=== PATIENT | female | born 1990 | race Hispanic/Latino ===

== ENCOUNTER 2019-07-17 19:27 | Emergency (ER) | payer SELFPAY ==
--- OUTSIDE RECORDS SUMMARY | 2019-07-17 19:30 | XMS REPORT ---
:1990 Author Organization [facility] t Address [address] Alvarez [address] [place] [id number] Care Team Providers Name Role Phone Unavailable Unavailable Unavailable Problems This patient has no known problems. Allergies, Adverse Reactions, Alerts This patient has no known allergies or adverse reactions. Medications This patient has no known medications. Procedures This patient has no known procedures. Results This patient has no known results.
[2019-07-17] MEDS ORDERED: dexAMETHasone 10 MG/ML VIAL ONE (21:14)
[2019-07-17] MEDS ORDERED: CLINDAMYCIN 900MG/D5W 900 MG/50 ML IVPB IV ONE (21:14)
[2019-07-17] MEDS ORDERED: ACETAMINOPHEN 325 MG TABLET ONE (21:14)
[2019-07-17] MEDS ORDERED: KETOROLAC 30 MG/ML INJ ONE (21:19)
[2019-07-17 21:41] LABS: Urine Blood NEGATIVE (NEG); Urine Glucose NEGATIVE (NEG); Urine Protein NEGATIVE (NEG); Urine Specific Gravity >1.030 (1.005-1.030); Urine pH 6.5 (5.0-7.0)
[2019-07-17 21:44] LABS: Absolute Lymphocytes (CBC) 2.3 K/uL (0.7-4.9); Basophils % 0.7 % (0-1.3); Hematocrit 44.8 % (36.0-45.0); Lymphocytes % 17.8 % (15.3-44.8); MPV 8.1 fL (7.6-11.3); RBC Red Blood Cell Count 4.96 M/uL (3.86-4.86)
[2019-07-17 21:48] LABS: Potassium 3.8 mmol/L (3.5-5.1)
--- NOTE | 2019-07-17 22:00 | RAD REPORT ---
EXAM DESCRIPTION: CT - Soft Tissue Neck W/Contr - 07/17/2019 9:30 pm CLINICAL HISTORY: peritonsillar abscess COMPARISON: No comparisons TECHNIQUE: During dynamic enhancement using 100 milliliters nonionic IV contrast, axial 5 millimeter thick images of the neck were obtained. All CT scans are performed using dose optimization technique as appropriate and may include automated exposure control or mA/KV adjustment according to patient size. FINDINGS: Intracranial portion the examination is unremarkable. No globe or orbital content. Mastoid air cells and paranasal sinuses are clear. No oropharyngeal abnormality seen. Left tonsil is enlarged extending to the midline. There is a central 2.0 x 1.5 x 1.5 centimeter hypod ense focus. Right tonsil is prominent but shows no focal hypodensity. Adenoid tissue within normal li mits. Left-sided soft palate is enlarged and edematous. Epiglottis is normal. No focal cord abnormality. Thyroid gland, submandibular gland and parotid gland tissues are unremarkable. A few small nonspecific bilateral cervical lymph nodes are present. No suspicious lymphadenopathy. IMPRESSION: A 2.0 centimeter left peritonsillar abscess is present. No suspicious cervical lymphadenopathy. Small reactive lymph nodes are present more pronounced on the left.
[2019-07-17] MEDS ORDERED: LIDOCAINE 1% MPF 5 ML VIAL ONE (22:33)
--- NOTE | 2019-07-17 23:21 | ER ---
Nurse's Notes [facility] Name: Stella Kapadia Age: 28 yrs Sex: Female : 1990 Arrival Date: 07/17/2019 Time: 19:29 Bed 18 Private MD: Diagnosis: Peritonsillar abscess Presentation: 07/16 19:35 Chief complaint: Patient states: Sore throat since last night. Coronavirus screen: ca1 Proceed with normal triage. Patient denies a cough. Patient denies shortness of breath or difficulty breathing. Patient denies measured and/or subjective temperature greater than 100.4F prior to today's visit. Patient denies travel on a cruise ship or to a country the [facility] currently lists as an affected area. Patient denies contact with known and/or suspected case of COVID-19. Ebola Screen: Patient negative for fever greater than or equal to 101.5 degrees Fahrenheit, and additional compatible Ebola Virus Disease symptoms Patient denies exposure to infectious person. Patient denies travel to an Ebola-affected area in the 21 days before illness onset. No symptoms or risks identified at this time. Initial Sepsis Screen: Does the patient meet any 2 criteria? No. Patient's initial sepsis screen is negative. Does the patient have a suspected source of infection? Yes:. Risk Assessment: Do you want to hurt yourself or someone else? Patient reports no desire to harm self or others. Onset of symptoms was July 17, 2019. 19:35 Method Of Arrival: Ambulatory ca1 19:35 Acuity: LUCIAN 4 ca1 Triage Assessment: 20:30 General: Appears in no apparent distress. uncomfortable, ill, Behavior is calm, vc cooperative, appropriate for age. 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 - Social history:: Smoking status: Patient denies any tobacco usage or history of. Screenin:30 Abuse screen: Denies threats or abuse. Nutritional screening: No deficits noted. vc Nutritional screening: Difficulty chewing/swallowing? Yes. Tuberculosis screening: No symptoms or risk factors identified. Fall Risk None identified. Assessment: 20:30 Pain: Complains of pain in left aspect of posterior pharynx Pain currently is 8 out of vc 10 on a pain scale. at worst was 10 out of 10 on a pain scale. Also complains of decreased appetite, Not being able to drink or swallow own spit. Neuro: Level of Consciousness is awake, alert, obeys commands, Oriented to person, place, time, situation, Appropriate for age. Cardiovascular: Capillary refill < 3 seconds Patient's skin is warm and dry. Respiratory: Airway Partially obstructed with abscess Respiratory effort is even, unlabored, Respiratory pattern is regular, symmetrical, Breath sounds are clear bilaterally. GI: No signs and/or symptoms were reported involving the gastrointestinal system. : No signs and/or symptoms were reported regarding the genitourinary system. EENT: Throat has enlarged tonsils on left with gag reflex present. 21:30 Reassessment: Patient appears in no apparent distress at this time. Patient and/or vc family updated on plan of care and expected duration. Pain level reassessed. Patient is alert, oriented x 3, equal unlabored respirations, skin warm/dry/pink. 22:30 Reassessment: Patient appears in no apparent distress at this time. Patient and/or vc family updated on plan of care and expected duration. Pain level reassessed. Patient is alert, oriented x 3, equal unlabored respirations, skin warm/dry/pink. Patient states symptoms have not improved. 23:30 Reassessment: Patient appears in no apparent distress at this time. Patient and/or vc family updated on plan of care and expected duration. Pain level reassessed. Patient is alert, oriented x 3, equal unlabored respirations, skin warm/dry/pink. Patient states feeling better. Patient states symptoms have improved. Vital Signs: 19:35 BP 118 / 82; Pulse 85; Resp 16 S; Temp 98.5(TE); Pulse Ox 100% on R/A; Weight 65.77 kg ca1 (R); Height 5 ft. (152.40 cm); 19:35 Body Mass Index 28.32 (65.77 kg, 152.40 cm) ca1 ED Course: 19:29 Patient arrived in ED. cf2 19:36 Triage completed. ca1 19:36 Arm band placed on right wrist. ca1 20:25 Christopher Oneill PA is PHCP. jr8 20:25 Brendan Alvarenga MD is Attending Physician. jr8 20:30 Patient has correct armband on for positive identification. Bed in low position. Call vc light in reach. Side rails up X2. Pulse ox on. NIBP on. 20:54 Idalmis Jackson, TAHMINA is Primary Nurse. vc 21:31 CT Soft Tissue Neck W/contr In Process Unspecified. EDMS 22:30 Assist provider with I \T\ D: of an abscess on left peritonsillar area Set up I\T\D tray. vc Performed by Christopher ALSTON Patient tolerated well. 22:47 Staci Escalera MD is Referral Physician. jr8 23:30 IV discontinued, intact, bleeding controlled, No redness/swelling at site. Pressure vc dressing applied. Administered Medications: No medications were administered Outcome: 22:48 Discharge ordered by . jr8 23:35 Discharged to home ambulatory. vc 23:35 Condition: good 23:35 Condition: improved 23:35 Discharge instructions given to patient, Instructed on discharge instructions, follow up and referral plans. wound care, Demonstrated understanding of instructions, follow-up care, medications, Prescriptions given X 2. 23:36 Patient left the ED. vc Signatures: Dispatcher [employer] EDWV Christopher Oneill PA PA jr8 Kathy Polo, RN RN ca1 She Worrell cf2 Idalmis Jackson, TAHMINA RN vc
--- NOTE | 2019-07-17 23:22 | EDPHYS ---
Physician Documentation [facility] Name: Stella Kapadia Age: 28 yrs Sex: Female : 1990 Arrival Date: 07/17/2019 Time: 19:29 Bed 18 Private MD: ED Physician Brendan Alvarenga HPI: 07/16 21:24 This 28 yrs old Female presents to ER via Ambulatory with complaints of Sore jr8 Throat. 21:24 The patient presents with sore throat. The patient describes throat pain as constant. jr8 Onset: The symptoms/episode began/occurred acutely, yesterday. Severity of symptoms: At their worst the symptoms were moderate, in the emergency department the symptoms are unchanged. Modifying factors: The symptoms are alleviated by nothing, the symptoms are aggravated by swallowing. Associated signs and symptoms: The patient has no apparent associated signs or symptoms. The patient has not experienced similar symptoms in the past. The patient has not recently seen a physician. 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 - Social history:: Smoking status: Patient denies any tobacco usage or history of. ROS: 21:24 Eyes: Negative for injury, pain, redness, and discharge, Neck: Negative for injury, jr8 pain, and swelling, Cardiovascular: Negative for chest pain, palpitations, and edema, Respiratory: Negative for shortness of breath, cough, wheezing, and pleuritic chest pain, Abdomen/GI: Negative for abdominal pain, nausea, vomiting, diarrhea, and constipation, Back: Negative for injury and pain, MS/Extremity: Negative for injury and deformity, Skin: Negative for injury, rash, and discoloration, Neuro: Negative for headache, weakness, numbness, tingling, and seizure. 21:24 ENT: Positive for sore throat. Exam: 21:24 Eyes: Pupils equal round and reactive to light, extra-ocular motions intact. Lids and jr8 lashes normal. Conjunctiva and sclera are non-icteric and not injected. Cornea within normal limits. Periorbital areas with no swelling, redness, or edema. Neck: Trachea midline, no thyromegaly or masses palpated, and no cervical lymphadenopathy. Supple, full range of motion without nuchal rigidity, or vertebral point tenderness. No Meningismus. Cardiovascular: Regular rate and rhythm with a normal S1 and S2. No gallops, murmurs, or rubs. Normal PMI, no JVD. No pulse deficits. Respiratory: Lungs have equal breath sounds bilaterally, clear to auscultation and percussion. No rales, rhonchi or wheezes noted. No increased work of breathing, no retractions or nasal flaring. Abdomen/GI: Soft, non-tender, with normal bowel sounds. No distension or tympany. No guarding or rebound. No evidence of tenderness throughout. Back: No spinal tenderness. No costovertebral tenderness. Full range of motion. Skin: Warm, dry with normal turgor. Normal color with no rashes, no lesions, and no evidence of cellulitis. MS/ Extremity: Pulses equal, no cyanosis. Neurovascular intact. Full, normal range of motion. Neuro: Awake and alert, GCS 15, oriented to person, place, time, and situation. Cranial nerves II-XII grossly intact. Motor strength 5/5 in all extremities. Sensory grossly intact. Cerebellar exam normal. Normal gait. 21:24 ENT: Exam is negative for earache, ear discharge, hemotympanum, TM abnormalities, nasal discharge, Mouth: Lips: moist, Oral mucosa: pink and intact, moist, Gums: pink, Tongue: is moist, Posterior pharynx: Airway: patent, Tonsils: enlarged on the left, with erythema, edema of the left soft palate present, Uvula: midline. Vital Signs: 19:35 BP 118 / 82; Pulse 85; Resp 16 S; Temp 98.5(TE); Pulse Ox 100% on R/A; Weight 65.77 kg ca1 (R); Height 5 ft. (152.40 cm); 19:35 Body Mass Index 28.32 (65.77 kg, 152.40 cm) ca1 Procedures: 22:35 Performed Aspiration of Peritonsillar Abscess. Patient was locally anesthetized with jr8 lidocaine 1% without epi to the left peritonsillar region. 18 G needle was utilized to aspirate approximately 1.2 cc of exudative material. Patient tolerated well. Bleeding minimal . MDM: 20:35 Patient medically screened. jr8 22:35 Data reviewed: vital signs, nurses notes, lab test result(s), radiologic studies, CT jr8 scan, and as a result, I will discharge patient. Data interpreted: Pulse oximetry: on room air is 100 %. Interpretation: normal. Counseling: I had a detailed discussion with the patient and/or guardian regarding: the historical points, exam findings, and any diagnostic results supporting the discharge/admit diagnosis, lab results, radiology results, the need for outpatient follow up, an ENT specialist, to return to the emergency department if symptoms worsen or persist or if there are any questions or concerns that arise at home. Response to treatment: the patient's symptoms have markedly improved after treatment. 07/16 19:37 Order name: Strep; Complete Time: 20:35 ca1 07/16 20:07 Order name: Throat Culture EDMO 07/16 21:03 Order name: CBC with Diff; Complete Time: 21:58 [facility] 07/16 21:03 Order name: Basic Metabolic Panel; Complete Time: 21:58 [facility] 07/16 21:28 Order name: Urine Dipstick--Ancillary (enter results); Complete Time: 21:58 ar 07/16 21:28 Order name: Urine --Ancillary (enter results); Complete Time: 21:58 [facility] 07/16 20:51 Order name: IV; Complete Time: 21:04 8 07/16 21:08 Order name: CT Soft Tissue Neck W/contr; Complete Time: 22:20 jr8 Administered Medications: No medications were administered Disposition: 07/17 07:19 Co-signature as Attending Physician, Brendan Alvarenga MD I agree with the assessment and marv plan of care. Disposition: 07/17/19 22:48 Discharged to Home. Impression: Peritonsillar abscess. - Condition is Stable. - Discharge Instructions: Peritonsillar Abscess. - Prescriptions for Clindamycin HCl 300 mg Oral Capsule - take 1 capsule by ORAL route every 6 hours for 10 days; 40 capsule. Ibuprofen 800 mg Oral Tablet - take 1 tablet by ORAL route every 12 hours As needed take with food; 20 tablet. - Medication Reconciliation Form, Thank You Letter, Antibiotic Education, Prescription Opioid Use form. - Follow up: Staci Escalera MD; When: 2 - 3 days; Reason: Recheck today's complaints, Continuance of care, Re-evaluation by your physician. - Problem is new. - Symptoms have improved. Signatures: Dispatcher [employer] EDBrendan Treadwell MD MD cha Roszak, Josh, PA PA jr8 Kathy Polo RN RN ca1 Idalmis Jackson RN RN vc Corrections: (The following items were deleted from the chart) 07/16 23:36 22:48 07/17/2019 22:48 Discharged to Home. Impression: Peritonsillar abscess. Condition vc is Stable. Forms are Medication Reconciliation Form, Thank You Letter, Antibiotic Education, Prescription Opioid Use. Follow up: Staci Escalera; When: 2 - 3 days; Reason: Recheck today's complaints, Continuance of care, Re-evaluation by your physician. Problem is new. Symptoms have improved. jr8
[2019-07-17 23:41] VITALS: BP 118/82; TEMP 98.5; O2SAT 100
== END 2019-07-17 23:36 ==
LOC: ER 19:27
PROC: 0C9PXZX Drainage of Tonsils, External Approach, Diagnostic (ICD-10-PCS; principal; 2019-07-17)
DX: J36 Peritonsillar abscess (principal)
CPT/HCPCS: 36415; 70491; 80048; 81003; 81025; 85025; 87070; 87081; 99284; J1100; Q9967

== ENCOUNTER 2020-01-06 20:54 | Emergency (ER) | payer SELFPAY ==
--- OUTSIDE RECORDS SUMMARY | 2020-01-06 20:57 | XMS REPORT | Clinical Summary ---
:1990 Author Organization [facility] Address [address] [place] [address] Care Team Providers Name Role Phone Asked, No Pcp Primary Care Provider Unavailable Allergies No Known Active Allergies Medications No known medications Active Problems Not on file Encounters Date Type Specialty Care Team Description 10/14/2019 Emergency Emergency Medicine Gerson Mancilla MD G eneralized weakness (Primary Dx); Near syncope; Anxiety after 01/05/2019 Surgical History Surgery Date Site/Laterality Comments NO PAST SURGERIES Medical History Medical History Date Comments No known health problems Social History Tobacco Use Types Packs/Day Years Used Date Never Smoker Smokeless Tobacco: Never Used Alcohol Use Drinks/Week oz/Week Comments Not Currently Sex Assigned at Date Recorded Not on file Last Filed Vital Signs Vital Sign Reading Time Taken Comments Blood Pressure 112/65 10/14/2019 1:30 PM CDT Pulse 49 10/14/2019 1:30 PM CDT Temperature 36.5 C (97.7 F) 10/14/2019 12:25 PM CDT Respiratory Rate 18 10/14/2019 1:30 PM CDT Oxygen Saturation 97% 10/14/2019 1:30 PM CDT Inhaled Oxygen Concentration - - Weight 66.4 kg (146 lb 5 oz) 10/14/2019 12:25 PM CDT Height 152.4 cm (5') 10/14/2019 12:25 PM CDT Body Mass Index 28.57 10/14/2019 12:25 PM CDT Plan of Treatment Health Maintenance Due Date Last Done Comments CERVICAL CANCER SCREENING 2009 INFLUENZA VACCINE 09/26/2019 Procedures Procedure Name Priority Date/Time Associated Comments Diagnosis CT HEAD WO CONTRAST STAT 10/14/2019 1:47 Resu lts for this PM CDT procedure are i n the results section. XR CHEST 1 VW PORTABLE STAT 10/14/2019 1:30 R esults for this PM CDT procedure are i n the results section. ECG 12-LEAD STAT 10/14/2019 1:03 Results for this PM CDT procedure are i n the results section. ECG ED PRELIMINARY Routine 10/14/2019 12:41 Resul ts for this INTERPRETATION PM CDT procedure are in the results section. HCG QUALITATIVE, SERUM STAT 10/14/2019 12:41 R esults for this SCREEN PM CDT procedure are i n the results section. ESTIMATED GFR STAT 10/14/2019 12:41 Results fo r this PM CDT procedure are i n the results section. B NATRIURETIC PEPTIDE STAT 10/14/2019 12:41 Re sults for this PM CDT procedure are i n the results section. TROPONIN STAT 10/14/2019 12:41 Results for this PM CDT procedure are i n the results section. CREATINE KINASE, TOTAL STAT 10/14/2019 12:41 R esults for this (CPK) PM CDT procedure are i n the results section. COMPREHENSIVE METABOLIC STAT 10/14/2019 12:41 Results for this PANEL PM CDT procedure are i n the results section. HC COMPLETE BLD COUNT STAT 10/14/2019 12:41 Re sults for this W/AUTO DIFF PM CDT procedure are i n the results section. after 01/05/[address] Head Wo Contrast (10/14/2019 1:47 PM CDT) Specimen Narrative Performed At EXAMINATION: CT HEAD WO CONTRAST HM [facility] COMPARISON: None CLINICAL HISTORY fall syncope. TECHNIQUE: Non-contrast CT scan of the head with thin- section contiguous transaxial images from the skull base to the vertex. CT scans are performed using radiation dose reduction techniques. Technical factors are evaluated and adjusted to ensure appropriate moderation of exposure. Automated dose cash management coordinator nology is applied to adjust radiation exposure while achie ving a highly diagnostic quality image. FINDINGS: Nonenhanced emergency cranial CT was performed at appr oximately 1335 hours The ventricles and sulci are normal. There is no definite acute or midline sh ift or extra-axial lesion. Bone settings demonstrate the calvarium to be intact. IMPRESSION: No significant acute intracranial abnorm alities. [facility]-[id number] Procedure Note Hm Interface, Radiology Results Incoming - 10/14/2019 1:52 PM CDT EXAMINATION: CT HEAD WO CONTRAST COMPARISON: None CLINICAL HISTORY fall syncope. TECHNIQUE: Non-contrast CT scan of the h ead with thin-section contiguous transaxial images from the skull base to the vertex. CT scans are performed using radiation dose reduction techniques. Technical factors are evaluated and adjusted to ensure appropriate moderation of exposure. Automated dose management technology is applied to adjust radiation exposure while achievin g a highly diagnostic quality image. FINDINGS: Nonenhanced emergency cranial CT was per formed at approximately 1335 hours The ventricles and sulci are normal. There is no definite acute or midline sh ift or extra-axial lesion. Bone settings demonstrate the calvarium to be intact. IMPRESSION: No significant acute intracranial abnorm alities. [facility]-[id number] Performing Organization Address [facility] Phon e Number [facility] [address] [place] [address] XR Chest 1 Vw Portable (10/14/2019 1:30 PM CDT) Specimen Narrative Performed At EXAMINATION: XR CHEST 1 VW PORTABLE [facility] CLINICAL HISTORY: SOB COMPARISON: None. IMPRESSION: Single frontal view reveals a prominent ca rdiac silhouette. Lungs without a consolidative process. Pleural margins are sharp. The remainder of the examination is unremark able. [facility]-[id number] Procedure Note Interface, Radiology Results Incoming - 10/14/2019 1:41 PM CDT EXAMINATION: XR CHEST 1 VW PORTABLE CLINICAL HISTORY: SOB COMPARISON: None. IMPRESSION: Single frontal view reveals a prominent cardiac silhouette. Lungs without a consolidative process. Pleural margins are sharp. The remainder of the examination is unremarkable. [facility]-[id number] Performing Organization Address [facility] Phon e Number [facility] [address] [place] [address] ECG 12 lead (10/14/2019 1:03 PM CDT) Pathologist Sig nature Ventricular rate 49 [facility]USE Atrial rate 49 [facility] MUSE NH interval 142 [facility] M[facility] QRSD interval 96 [facility] QT interval 472 [facility] QTC interval 426 [facility] P axis 1 36 [facility] QRS axis 1 42 [facility] T wave axis 38 [facility] EKG impression Marked sinus [facility] MUSE bradycardia-No previous ECGs available-Electronicall y Signed By Ron Cameron MD ([id number]) on 12/04/2019 12:29:13 PM Specimen Narrative Performed At This result has an attachment that is no t available. Performing Organization Address [facility] Code Phon e Number [facility] MUSE [address] [place] [address] ECG ED Preliminary Interpretation - Not an Order (10/14/2019 12:41 PM CDT) Narrative Performed At Gerson Mancilla MD 10/14/2019 2 :14 PM ECG ED Preliminary Interpretation - Not an Order Performed by: Gerson Mancilla MD Authorized by: Gerson Mancilla MD ECG reviewed by ED Physician in the abse nce of a school bus driver/teacher assistant: yes Interpretation: Interpretation: abnormal Rate: ECG rate: 49 ECG rate assessment: bradycardic Rhythm: Rhythm: sinus bradycardia Ectopy: Ectopy: none QRS: QRS axis: Normal Conduction: Conduction: normal ST segments: ST segments: Normal T waves: T waves: normal Estimated GFR (10/14/2019 12:41 PM CDT) [facility] Estimated GFR >=90 mL/min/1.73 [facility] Comment: m2 [facility] Catergory Units Interpretation G1 >=90 Normal or high G2 60-89 Mildly decreased G3a 45-59 Mildly to moderately decreas ed G3b 30-44 Moderately to severely decre ased G4 15-29 Severely decreased G5 <15 Kidney failure The eGFR was calculated using the Chronic Kidney Disea se Epidemiology Collaboration (CKD-EPI) equation. Interpretation is based on recommendations of the National Kidney Foundation-Kidney Disease Outcomes Bo lity Initiative (NKF-KDOQI) published in 2014. Specimen Performing Organization Address City/State/ZIP Code Phon e Number [facility] DEPARTMENT OF PATHOLOGY AND [address] [place], [place] [address] GENOMIC MEDICINE [facility] [address] [place], [place] [address] Troponin (10/14/2019 12:41 PM CDT) [facility] Troponin <0.006 0.000 - 0.040 [facility] Comment: ng/mL [facility] In patients suspected of having a myocardial infarctio n, along with all other appropriate clinical measures and actions includ ing ECG and other diagnostics as appropriate, measure Ultra TnI at 0 hrs and at 3 hrs. Myocardial infarction VERY LIKELY The 0 hr TnI level is > 0.10 ng/mL Myocardial infarction LIKELY The 0 hr TnI level is > 0.04 ng/mL and 3 hr level is i ncreased or decreased by at least 0.020 ng/mL Myocardial infarction VERY UNLIKELY Both the 0 hr and 3 hr TnI levels <= 0.04 ng/mL(within normal limits) OR 0 hr is > 0.04 ng/mL and 3 hr is increased OR decreased by less than 0.020 ng/mL Specimen Blood Performing Organization Address City/State/[facility] Code Phon e Number [facility] DEPARTMENT OF PATHOLOGY AND [address] [place], [place] [address] GENOMIC MEDICINE [facility] [address] [place], [place] [address] CBC with platelet and differential (10/14/2019 12:41 PM CDT) [facility] WBC 7.0 4.2 - 11.0 k/uL [facility] RBC 4.87 4.04 - 5.86 [facility] m/uL [facility] HGB 14.9 11.5 - 15.3 [facility] g/dL [facility] HCT 45.1 (H) 34.0 - 45.0 % [facility] MCV 92.6 80.0 - 98.0 fL [facility] MCH 30.6 27.0 - 34.0 pg [facility] MCHC 33.0 31.5 - 36.5 [facility] g/dL [facility] RDW - SD 42.8 37.0 - 51.0 fL [facility] MPV 9.9 7.4 - 10.4 fL [facility] Platelet count 282 150 - 400 k/uL [facility] Nucleated RBC 0.00 /100 WBC [facility] Neutrophils 56.4 36.0 - 66.0 % [facility] Lymphocytes 29.9 24.0 - 44.0 % [facility] Monocytes 8.3 (H) 0.0 - 6.0 % [facility] Eosinophils 4.4 0.0 - 6.0 % [facility] Basophils 0.7 0.0 - 1.2 % [facility] Immature granulocytes 0.3 0.0 - 1.0 % [facility] Specimen Blood Performing Organization Address City/[facility] Phon e Number [facility] DEPARTMENT OF PATHOLOGY AND [address] [place] [address] [address] hCG qualitative, serum screen (10/14/2019 12:41 PM CDT) hCG qualitative, Negative [facility] serum Comment: [facility] The manufacturers stated sensitivity of HcG test for s pura is >/= 10 mIU/ml and urine is >/= 20mIU/ml. Specimen Blood Performing Organization Address City/[facility] Phon e Number [facility] DEPARTMENT OF PATHOLOGY AND [address] [place] [address] [address] [facility] [address] [place] [phone] B natriuretic peptide (10/14/2019 12:41 PM CDT) Pathologist Sig nature BNP 12 0 - 100 pg/mL [facility] Specimen Blood Performing Organization Address City/[facility]/ZIP [facility] Phon e Number [facility] DEPARTMENT OF PATHOLOGY AND [address] [address] 21 [facility] MEDICINE [facility] [address] [place] [phone] Creatine kinase, total (CPK) (10/14/2019 12:41 PM CDT) Pathologist Sig nature Creatine kinase 185 26 - 192 U/L [facility] Specimen Blood Performing Organization Address City/[facility]/ZIP [facility] Phon e Number [facility] DEPARTMENT OF PATHOLOGY AND [address] [place], [place] [address] GENOMIC MEDICINE [facility] [address] [place], [place] [address] Comprehensive metabolic panel (10/14/2019 12:41 PM CDT) Pathologist Sig nature Sodium 138 135 - 150 mEq/L [facility] Potassium 4.0 3.5 - 5.0 mEq/L [facility] Chloride 101 98 - 112 mEq/L [facility] CO2 26 24 - 31 mmol/L [facility] Anion gap 11@ANIO 7 - 15 mEq/L [facility] BUN 13 7 - 18 mg/dL [facility] Creatinine 0.70 0.50 - 0.90 [facility] mg/dL [facility] Glucose 89 65 - 100 mg/dL [facility] Calcium 9.6 8.3 - 10.2 mg/dL [facility] Protein 7.4 6.3 - 8.3 g/dL [facility] Albumin 4.0 3.5 - 5.0 g/dL [facility] A/G ratio 1.2 0.7 - 3.8 [facility] Alkaline phosphatase 61 0 - 104 U/L [facility] AST 24 10 - 35 U/L [facility] ALT 22 5 - 50 U/L [facility] Total bilirubin 0.5 0.2 - 1.2 mg/dL [facility] Specimen Blood Performing Organization Address City/State/ZIP Code Phon e Number [facility] DEPARTMENT OF PATHOLOGY AND [address] [place], [place] [address] [facility] MEDICINE [facility] [address] [place], [place] [address] after 01/05/2019 Advance Directives For more information, please contact: [phone] Type Date 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
--- OUTSIDE RECORDS SUMMARY | 2020-01-06 20:58 | XMS REPORT | Continuity of Care Document ---
:[address] [facility] t Address [address] [place] [address] Care Team Providers Name Role Phone Asked, No Pcp Primary Care Physician Unavailable Laurent MAYS, P. Attending Clinician Problems This patient has no known problems. Allergies, Adverse Reactions, Alerts This patient has no known allergies or adverse reactions. Social History Social Habit Start Date Stop Date Quantity Comments Source Sex Assigned At [facility] ethodist Tobacco use and 2019-10-14 2019-10-14 Never used [facility]ist exposure 00:00:00 00:00:00 Alcohol intake 2019-10-14 2019-10-14 Ex-drinker [facility] thodist 00:00:00 00:00:00 (finding) Smoking Status Start Date Stop Date Source Never smoker [facility] Medications This patient has no known medications. Vital Signs Vital Name Observation Time Observation Value Comments Source Systolic blood 2019-10-14 13:30:00 112 mm[Hg] [facility] pressure Diastolic blood 2019-10-14 13:30:00 65 mm[Hg] [facility] pressure Heart rate 2019-10-14 13:30:00 49 /min Aidan Pierce Respiratory rate 2019-10-14 13:30:00 18 /min [facility] Oxygen saturation in 2019-10-14 13:30:00 97 /min Aidan Pierce Arterial blood by Pulse oximetry Body temperature 2019-10-14 12:25:00 36.5 Robyn Bharati Pierce Body height 2019-10-14 12:25:00 152.4 cm Aidan Pierce Body weight 2019-10-14 12:25:00 66.367 kg Aidan Pierce BMI 2019-10-14 12:25:00 28.57 kg/m2 Aidan Pierce Procedures Procedure Date / Time Performing Clinician Source Performed CT HEAD WO CONTRAST 2019-10-14 13:47:07 Gerson Mancilla XR CHEST 1 VW PORTABLE 2019-10-14 13:30:59 Gerson Mancilla [facility] ECG 12-LEAD 2019-10-14 13:03:12 Gerson Mancilla [facility] ECG ED PRELIMINARY 2019-10-14 12:41:38 Gerson Mancilla INTERPRETATION HC COMPLETE BLD COUNT 2019-10-14 12:41:00 Gerson Mancilla [facility] W/AUTO DIFF COMPREHENSIVE METABOLIC 2019-10-14 12:41:00 Gerson Mancilla [facility] PANEL CREATINE KINASE, TOTAL 2019-10-14 12:41:00 Gerson Mancilla (CPK) TROPONIN 2019-10-14 12:41:00 Gerson Mancilla [facility] B NATRIURETIC PEPTIDE 2019-10-14 12:41:00 Gerson Mancilla [facility] ESTIMATED GFR 2019-10-14 12:41:00 Gerson Mancilla [facility] HCG QUALITATIVE, SERUM 2019-10-14 12:41:00 Gerson Mancilla [facility] SCREEN Plan of Care Planned Activity Planned Date Details Comments Source Future Scheduled 2019-09-26 INFLUENZA VACCINE Arun garcia [facility] Test 00:00:00 [code = INFLUENZA VACCINE] Future Scheduled 2009 Screening for [facility] Test 00:00:00 malignant neoplasm of cervix (procedure) [code = 448362897] Encounters Start End Encounter Admission Attending Care Care Encounter Source Date/Time Date/Time Type Type Clinicians Facility Department ID 2019-10-14 2019-10-14 Emergency [facility] [id number] [place] 00:00:00 00:00:[address] Results Test Description Test Time Test Comments Results Result Comments Source ECG 12 lead 2019-12-04 12:29:15 Test Item Value Reference Range Interpretation Comme nts Ventricular rate (test code = 253) 49 Atrial rate (test code = 255) 49 VA interval (test code = 266) 142 QRSD interval (test code = 260) 96 QT interval (test code = 264) 472 QTC interval (test code = 265) 426 P axis 1 (test code = 267) 36 QRS axis 1 (test code = 268) 42 T wave axis (test code = 270) 38 EKG impression (test code = 273) Marked sinus bradycardia-No previo us ECGs available- [facility] MethodistCT Head Wo [id number] 13:49:31Hm Interface, Radiology Results 10/14/2019 1:52 PM CDTEXAMINATION: CT HEAD WO CONTRASTCOM PARISON: NoneCLINICAL HISTORY fall syncope. TECHNIQUE: Non-contrast CT scan of the head with thin-section contiguous transaxial images from the skull base to the vertex. CT scans are performed using radiation dose reduction techniques. Technical factors are evaluated and adjusted to ensure appropriate moderation of exposure. Automated dose management technology is applied to adjust radiation exposure while achieving a highly diagnostic quality image.FINDINGS:Nonenhanced emergency cranial CT was performed at approximately 1335 hoursThe ventricles and sulci are normal.There is no definite acute or midline shift or extra-axial lesion.Bone settings demonstrate the calvarium to be intact.IMPRESSION:No significant acute intracranial abnormalities.[facility]-[id number] MethodistXR Chest 1 Vw [id number] 13:38:44Hm Interface, Radiology Results - 10/14/2019 1:41 PM CDTEXAMINATION: XR CHEST 1 VW PORTABLECLINICAL HISTORY: SOBCOMPARISON: None.IMPRESSION: Single frontal view reveals a prominent cardiac silhouette. Lungs without a consolidative process. Pleural margins are sharp. The remainder of the examination is unremarkable.[facility]-[id number] 13:27:56 Test Item Value Reference Range Interpretation Comments Troponin (test code = <0.006 0-0.04 [place] [address]-3) having a myocar dial infarction, sara ng with all other appro priate clinical measur es and actions includi ng ECG and other diagnosti cs as appropriate, me asure Ultra TnI at 0 hrs and at 3 hrs.Myocardia l infarction VERY LIKELYThe 0 hr TnI level is > 0.10 ng/mL --Myocardial in farction LIKELYThe 0 hr TnI level is > 0.04 ng/mL and 3 hr level is increa sed or decreased by at least 0.020 ng/mL -------Allan cardial infarct ion VERY UNLIKELYBoth th e 0 hr and 3 hr TnI levels <= 0.04 ng/mL(within no rmal limits) OR 0 hr is > 0.04 ng/mL and 3 hr is increased OR de creased by less than 0.020 ng/mL [facility] natriuretic [id number] 13:27:26 Test Item Value Reference Range Interpretation Comments BNP (test code = 10439-1) 12 pg/mL 0-100 [place] MethodistComprehensive metabolic [id number] 13:23:47 Test Item Value Reference Range Interpretation Comments Sodium (test code = 2951-2) 138 135- 150 mEq/L Potassium (test code = 2823-3) 4.0 3.5- 5.0 mEq/L Chloride (test code = 5-0) 101 98- 112 mEq/L CO2 (test code = 2027-) 26 mmol/L 24-31 Anion gap (test code = 21917-2) 11@ANIO 7- 15 mEq/L BUN (test code = 3094-0) 13 mg/dL 7-18 Creatinine (test code = 2160-0) 0.70 mg/dL 0.5-0.9 Glucose (test code = 2345-7) 89 mg/dL 65-100 Calcium (test code = 67410-3) 9.6 mg/dL 8.3-10.2 Protein (test code = 2885-2) 7.4 g/dL 6.3-8.3 Albumin (test code = 1751-7) 4.0 g/dL 3.5-5 A/G ratio (test code = 1759-0) 1.2 0.7-3.8 Alkaline phosphatase (test code = 61 U/L 0-104 6768-6) AST (test code = 1920-8) 24 U/L 10-35 ALT (test code = 1742-6) 22 U/L 5-50 Total bilirubin (test code = 0.5 mg/dL 0.2-1.2 1974-03) [facility] MethodistCreatine kinase, total (CPK)2019-10-14 13:23:46 Test Item Value Reference Range Interpretation Comments Creatine kinase (test code = 2157-6) 185 U/L 26-192 [facility] MethodistEstimated [id number] 13:23:46 Test Item Value Reference Range Interpretation Comments Estimated GFR (test >=90 mL/min/1.73 m2 [facility] Units code = 5488) InterpretationG 1 >=90 Normal or highG2 60-89 Mildly dxfbkqkkcR5t 45-59 Mildly to mode rately avfgzzqjvZ2l 30-44 Moderately to severely decreasedG4 15-29 Severely decre asedG5 <15 Kidn ey failureThe eGFR was calculated usin g the Chronic Kidney Disease Epidemiology Co llaboration (CKD-EPI) equat ion. Interpretation is based on recommendations of the National Kidney Foundation-Kidn ey Disease Outcomes Qualit y Initiative (NKF-KDOQI) pub lished in 2014. [facility] MethodisthCG qualitative, serum [id number] 13:18:22 Test Item Value Reference Range Interpretation Comments hCG qualitative, Negative The yissel solano stated serum (test code = sensitivi ty of HcG test 2117-09) for serum is >/ = 10 mIU/ml and urine is >/ = 20mIU/ml. [facility] MethodistCBC with platelet and [id number] 13:04:05 Test Item Value Reference Range Interpretation Comments WBC (test code = 50336-0) 7.0 4.2- 11.0 k/uL RBC (test code = 34215-3) 4.87 m/uL 4.04-5.86 HGB (test code = 718-7) 14.9 g/dL 11.5-15.3 HCT (test code = 4544-3) 45.1 % 34-45 H MCV (test code = 787-2) 92.6 fL 80-98 MCH (test code = 785-6) 30.6 pg 27-34 MCHC (test code = 786-4) 33.0 g/dL 31.5-36.5 RDW - SD (test code = 14080-5) 42.8 fL 37-51 MPV (test code = 31858-6) 9.9 fL 7.4-10.4 Platelet count (test code = 282 150- 400 k/uL 66874-5) Nucleated RBC (test code = 21188-3) 0.00 /100 WBC Neutrophils (test code = 54391-4) 56.4 % 36-66 Lymphocytes (test code = 91929-5) 29.9 % 24-44 Monocytes (test code = 80224-1) 8.3 % 0-6 H Eosinophils (test code = 61445-3) 4.4 % 0-6 Basophils (test code = 92878-4) 0.7 % 0-1.2 Immature granulocytes (test code = 0.3 % 0-1 46018-7) Lab Interpretation (test code = Abnormal 38293-8) [facility] Preliminary Interpretation - Not an [id number] 12:41:38 Test Item Value Reference Range Interpretation Comments CAESAR (test code = CAESAR) Gerson Mancilla MD 10/14/2019 2:14 [facility] ED Preliminary Interpretation - Not an OrderPerformed by: Gerson Mancilla MDAuthorized by: Gerson Mancilla MD ECG reviewed by ED Physician in the absence of a award clerk: yes Interpretation: Interpretation: abnormal Rate: ECG rate: 49 ECG rate assessment: bradycardic Rhythm: Rhythm: sinus bradycardia Ectopy: Ectopy: none QRS: QRS axis: NormalConduction: Conduction: normal ST segments: ST segments: NormalT waves: T waves: normal Lab Interpretation Abnormal (test code = 53650-6) Aidan Pierce
[2020-01-06 22:05] LABS: Urine Blood NEGATIVE (NEG); Urine Glucose NEGATIVE (NEG); Urine Protein NEGATIVE (NEG); Urine Specific Gravity 1.025 (1.005-1.030)
[2020-01-06] MEDS ORDERED: ONDANSETRON 4 MG/2 ML VIAL ONE (22:45)
[2020-01-06 22:52] LABS: Absolute Lymphocytes (CBC) 1.4 K/uL (0.7-4.9); Basophils % 0.3 % (0-1.3); Lymphocytes % 31.2 % (15.3-44.8); MPV 8.6 fL (7.6-11.3)
[2020-01-06 23:11] LABS: Protime INR 1.13
[2020-01-06 23:19] LABS: BUN Blood Urea Nitrogen 15 mg/dL (7-18); Bicarbonate 27 mmol/L (21-32); Glucose Level 86 mg/dL (74-106); NT PRO-BNP 128 pg/mL (<125); Potassium 3.7 mmol/L (3.5-5.1); Sodium Level 141 mmol/L (136-145); Troponin (Emerg Dept Use Only) < 0.02 ng/mL (0.0-0.045)
[2020-01-07] MEDS ORDERED: dexAMETHasone 10 MG/ML VIAL ONE (00:01)
--- NOTE | 2020-01-07 00:15 | EDPHYS ---
Physician Documentation [facility] Name: Stella Kapadia Age: 29 yrs Sex: Female : 1990 Arrival Date: 01/06/2020 Time: 20:57 Bed 17 Private MD: ED Physician Valdez Rodriguez HPI: 01/05 21:32 This 29 yrs old Female presents to ER via Ambulatory with complaints of rn Breathing Difficulty, Headache. 21:32 The patient has shortness of breath at rest, with light activity. rn 21:32 Onset: The symptoms/episode began/occurred 3 day(s) ago. Duration: The symptoms are rn intermittent. The patient's shortness of breath is aggravated by light activity, talking, walking. Associated signs and symptoms: Pertinent positives: non-productive cough, fever, sore throat. Severity of symptoms: At their worst the symptoms were moderate in the emergency department the symptoms are unchanged. The patient has not experienced similar symptoms in the past. The patient has not recently seen a physician. Reports exposure to COVID+ patient last week, + sore throat/headache/cough/sob. . Historical: - Allergies: 22:39 No Known Allergies; ea - PMHx: 22:39 None; ea - PSHx: 22:39 None; ea - Immunization history:: Adult Immunizations up to date. - Family history:: not pertinent. - Social history:: Smoking status: unknown. - Hospitalizations: : No recent hospitalization is reported. ROS: 21:32 Constitutional: + fever Eyes: Negative for injury, pain, redness, and discharge, ENT: + rn sore throat Neck: Negative for injury, pain, and swelling, Cardiovascular: Negative for chest pain, palpitations, and edema, Respiratory: + cough and sob Abdomen/GI: Negative for abdominal pain, nausea, vomiting, diarrhea, and constipation, MS/Extremity: Negative for injury and deformity, Skin: Negative for injury, rash, and discoloration, Neuro: Negative for numbness, tingling, and seizure. Exam: 21:32 Constitutional: This is a well developed, well nourished patient who is awake, alert, rn and in no acute distress. Ambulatory to room and bathroom Head/Face: Normocephalic, atraumatic. Eyes: Pupils equal round and reactive to light, extra-ocular motions intact. Lids and lashes normal. Conjunctiva and sclera are non-icteric and not injected. Cornea within normal limits. Periorbital areas with no swelling, redness, or edema. ENT: Nontender cervical LAD, no stridor Neck: Trachea midline Cardiovascular: Regular rate and rhythm. No pulse deficits. Respiratory: + moderate tachypnea with clear bilateral breath sounds Abdomen/GI: soft, non-tender Skin: Warm, dry with normal turgor. Normal color with no rashes, no lesions, and no evidence of cellulitis. MS/ Extremity: Pulses equal, no cyanosis. Neurovascular intact. Full, normal range of motion. Equal circumference. Neuro: Awake and alert, GCS 15, oriented to person, place, time, and situation. Cranial nerves II-XII grossly intact. Motor strength 5/5 in all extremities. Sensory grossly intact. Cerebellar exam normal. Normal gait. Vital Signs: 21:05 BP 127 / 82; Pulse 53; Resp 44; Temp 99.2(TE); Pulse Ox 100% on R/A; Weight 63.5 kg; dm5 Height 5 ft. 3 in. (160.02 cm); Pain 7/10; 22:28 BP 111 / 68; Pulse 46; Resp 28; Pulse Ox 100% on R/A; ea 23:12 BP 94 / 68; Pulse 45; Resp 22; Pulse Ox 99% ; ea 01/06 00:30 BP 100 / 60; Pulse 50; Resp 18; Pulse Ox 99% ; ea 01/05 21:05 Body Mass Index 24.80 (63.50 kg, 160.02 cm) dm5 MDM: 01/05 21:23 Patient medically screened. rn 01/06 00:12 Differential diagnosis: Anxiety Reaction Bronchitis pneumonia, Pneumothorax pulmonary rn edema, Pulmonary Embolism COVID, flu. Data reviewed: vital signs, nurses notes, lab test result(s), EKG, radiologic studies, CT scan, plain films, and as a result, I will discharge patient. Counseling: I had a detailed discussion with the patient and/or guardian regarding: the historical points, exam findings, and any diagnostic results supporting the discharge/admit diagnosis, lab results, radiology results, the need for outpatient follow up, to return to the emergency department if symptoms worsen or persist or if there are any questions or concerns that arise at home. Response to treatment: the patient's symptoms have mildly improved after treatment, and as a result, I will discharge patient. Special discussion: I discussed with the patient/guardian in detail that at this point there is no indication for admission to the hospital. It is understood, however, that if the symptoms persist or worsen the patient needs to return immediately for re-evaluation. ED course: Had long discussion with patient, most likely COVID-19, has been tested, results expected to come tomorrow, so not retested here. Neg flu/strep. CT chest neg for PE, shows signs of possible COVID pneumonia. Pt gets anxious and starts to breath faster, when notified, RR jumped to 28, coached her and came down to 18. NO oxygen requirement. Will dc home with zithromax, inhaler, steroids, and return precautions. Told her to isolate and assume she is COVID positive. . 01/05 21:31 Order name: PT-INR 01/05 21:31 Order name: Blood Culture Adult (2) 01/05 21:31 Order name: BMP 01/05 21:31 Order name: CBC with Diff 01/05 21:31 Order name: NT PRO-BNP 01/05 21:31 Order name: Ptt, Activated 01/05 21:31 Order name: Troponin (emerg Dept Use Only) 01/05 21:31 Order name: Flu 01/05 21:31 Order name: Procalcitonin 01/05 21:31 Order name: Strep 01/05 22:00 Order name: Urine Dipstick--Ancillary (enter results); Complete Time: 22:14 me 01/05 22:00 Order name: Urine --Ancillary (enter results); Complete Time: 22:14 me 01/05 22:39 Order name: Throat Culture [facility] 01/05 23:25 Order name: CREATININE WHOLE BLOOD [facility] 01/05 21:31 Order name: CT Chest For PE Angio 01/05 21:31 Order name: XRAY CXR (1 view) 01/05 21:31 Order name: EKG; Complete Time: 21:33 01/05 21:31 Order name: Cardiac monitoring; Complete Time: 22:35 01/05 21:31 Order name: EKG - Nurse/Tech; Complete Time: 22:35 01/05 21:31 Order name: IV Saline Lock; Complete Time: 22:00 rn 01/05 21:31 Order name: Labs collected and sent; Complete Time: 22:00 rn 01/05 21:31 Order name: O2 Per Protocol; Complete Time: 22:00 rn 01/05 21:31 Order name: O2 Sat Monitoring; Complete Time: 22:00 rn Administered Medications: 01/05 22:35 Drug: Zofran (Ondansetron) 4 mg Route: IVP; Site: right antecubital; ea 23:53 Follow up: Response: No adverse reaction ea 23:53 Drug: Decadron - Dexamethasone 10 mg Route: IVP; Site: right antecubital; ea 01/06 00:40 Follow up: Response: No adverse reaction ea 00:38 Drug: Zithromax 500 mg Route: PO; ea 00:40 Follow up: Response: Medication administered at discharge. ea 00:38 Drug: Albuterol HFA Inhaler 2 puffs Route: Inhalation; ea 01:24 Follow up: Response: Medication administered at discharge. ea Disposition: 01/07/20 00:14 Discharged to Home. Impression: Pneumonia, unspecified organism. - Condition is Stable. - Discharge Instructions: Community-Acquired Pneumonia, Adult, COVID-19. - Prescriptions for dexamethasone 6 mg Oral tablet - take 6 milligram by ORAL route once daily for 10 days; 10 tablet. Zithromax Z- Kareem 250 mg Oral Tablet - take 1 tablet by ORAL route as directed for 5 days Day 1 - take two (2) tablets one time. Day 2, 3, 4 , 5 take one (1) tablet once daily.; 6 tablet. Albuterol Sulfate 90 mcg/actuation - inhale 1-2 puff by INHALATION route every 4-6 hours; 1 Inhaler. - Medication Reconciliation Form, Thank You Letter, Antibiotic Education, Prescription Opioid Use form. - Follow up: Private Physician; When: As needed; Reason: Recheck today's complaints, Re-evaluation by your physician. - Problem is new. - Symptoms have improved. Signatures: Dispatcher [employer] EDMS Valdez Rodriguez MD MD rn Antunez, Elena, RN RN ea Corrections: (The following items were deleted from the chart) 00:42 00:14 01/07/2020 00:14 Discharged to Home. Impression: Pneumonia, unspecified organism. ea Condition is Stable. Forms are Medication Reconciliation Form, Thank You Letter, Antibiotic Education, Prescription Opioid Use. Follow up: Private Physician; When: As needed; Reason: Recheck today's complaints, Re-evaluation by your physician. Problem is new. Symptoms have improved. rn
--- NOTE | 2020-01-07 00:15 | ER ---
Nurse's Notes [facility] Name: Stella Kapadia Age: 29 yrs Sex: Female : 1990 Arrival Date: 01/06/2020 Time: 20:57 Bed 17 Private MD: Diagnosis: Pneumonia, unspecified organism Presentation: 01/05 21:05 Chief complaint: Patient states: headache and SOB started Saturday. Pt resp rate is dm5 approximately 44 in triage. O2 sat is 100% Lung sounds clear. Chief complaint: Patient states: pt also reports abd pain at 7/10. Coronavirus screen: difficulty breathing, headache, Client presents with at least one sign or symptom that may indicate coronavirus-19. Standard/surgical mask placed on the client. Provider contacted for isolation considerations. Ebola Screen: Patient negative for fever greater than or equal to 101.5 degrees Fahrenheit, and additional compatible Ebola Virus Disease symptoms Patient denies exposure to infectious person. Patient denies travel to an Ebola-affected area in the 21 days before illness onset. No symptoms or risks identified at this time. Initial Sepsis Screen: Does the patient meet any 2 criteria? RR > 20 per min. No. Patient's initial sepsis screen is negative. Does the patient have a suspected source of infection? Yes: Acute abdominal pain. Risk Assessment: Do you want to hurt yourself or someone else? Patient reports no desire to harm self or others. Onset of symptoms was January 03, 2020. 21:05 Method Of Arrival: Ambulatory dm5 21:05 Acuity: LUCIAN 3 dm5 Triage Assessment: 01/06 01:21 Respiratory: ea Historical: - Allergies: 01/05 22:39 No Known Allergies; ea - PMHx: 22:39 None; ea - PSHx: 22:39 None; ea - Immunization history:: Adult Immunizations up to date. - Family history:: not pertinent. - Social history:: Smoking status: unknown. - Hospitalizations: : No recent hospitalization is reported. Screenin:27 Abuse screen: Denies threats or abuse. Nutritional screening: No deficits noted. ea Tuberculosis screening: No symptoms or risk factors identified. Fall Risk IV access (20 points). Assessment: 22:37 General: Appears uncomfortable, Behavior is appropriate for age. Pain: Denies pain. ea Neuro: Level of Consciousness is awake, alert, obeys commands, Oriented to person, place, time, situation. Cardiovascular: Rhythm is sinus bradycardia. Respiratory: Airway is patent Respiratory effort is even, unlabored, Respiratory pattern is tachypnea. Derm: Skin is dry, Skin is normal, Skin temperature is warm. 23:12 Reassessment: Patient and/or family updated on plan of care and expected duration. Pain ea level reassessed. Patient is alert, oriented x 3, equal unlabored respirations, skin warm/dry/pink. 01/06 00:40 Reassessment: Patient and/or family updated on plan of care and expected duration. Pain ea level reassessed. Patient is alert, oriented x 3, equal unlabored respirations, skin warm/dry/pink. Discharge instruction given to patient, verbalized the understanding of instruction. pt left ED ambulatory tolerating well. Vital Signs: 01/05 21:05 BP 127 / 82; Pulse 53; Resp 44; Temp 99.2(TE); Pulse Ox 100% on R/A; Weight 63.5 kg; dm5 Height 5 ft. 3 in. (160.02 cm); Pain 7/10; 22:28 BP 111 / 68; Pulse 46; Resp 28; Pulse Ox 100% on R/A; ea 23:12 BP 94 / 68; Pulse 45; Resp 22; Pulse Ox 99% ; ea 01/06 00:30 BP 100 / 60; Pulse 50; Resp 18; Pulse Ox 99% ; ea 01/05 21:05 Body Mass Index 24.80 (63.50 kg, 160.02 cm) dm5 ED Course: 01/05 20:57 Patient arrived in ED. cl3 21:08 Triage completed. dm5 21:23 Valdez Rodriguez MD is Attending Physician. rn 21:51 Anat Bullock, TAHMINA is Primary Nurse. ll1 22:05 XRAY CXR (1 view) In Process Unspecified. EDMS 22:10 Inserted saline lock: 20 gauge in right antecubital area, using aseptic technique. ea Blood collected. 22:27 Patient has correct armband on for positive identification. Bed in low position. Call ea light in reach. Side rails up X2. napper grinder on. Pulse ox on. NIBP on. 22:28 Arm band placed on right wrist. Patient placed in an exam room, on a stretcher, on ea [employer] stitcher, on pulse oximetry. 22:35 CT Chest For PE Angio In Process Unspecified. EDMS 22:39 Primary Nurse role handed off by Anat Bullock RN ea 22:39 Charlotte De La Torre, RN is Primary Nurse. ea 01/06 00:40 No provider procedures requiring assistance completed. IV discontinued, intact, ea bleeding controlled, No redness/swelling at site. Pressure dressing applied. Administered Medications: 01/05 22:35 Drug: Zofran (Ondansetron) 4 mg Route: IVP; Site: right antecubital; ea 23:53 Follow up: Response: No adverse reaction ea 23:53 Drug: Decadron - Dexamethasone 10 mg Route: IVP; Site: right antecubital; ea 01/06 00:40 Follow up: Response: No adverse reaction ea 00:38 Drug: Zithromax 500 mg Route: PO; ea 00:40 Follow up: Response: Medication administered at discharge. ea 00:38 Drug: Albuterol HFA Inhaler 2 puffs Route: Inhalation; ea 01:24 Follow up: Response: Medication administered at discharge. ea Outcome: 00:14 Discharge ordered by . rn 00:40 Discharged to home ambulatory. ea 00:40 Condition: stable 00:40 Discharge instructions given to patient, Instructed on discharge instructions, follow up and referral plans. medication usage, Demonstrated understanding of instructions, follow-up care, medications, Prescriptions given X 3. 00:42 Patient left the ED. ea Signatures: Dispatcher [employer] MARY BETHMN Qi Alonso RN RN dm5 Valdez Rodriguez MD MD rn Antunez, Elena, RN RN ea Lewis, Charde cl3 Anat Bullock RN RN ll1
[2020-01-07] MEDS ORDERED: AZITHROMYCIN 250 MG TAB ONE (00:49)
[2020-01-07] MEDS ORDERED: ALBUTEROL INHALER 60 PUFF/8 GM IH ONE (00:49)
[2020-01-07 01:14] VITALS: TEMP 99.2
[2020-01-07 01:18] VITALS: BP 94/68; O2SAT 99
--- NOTE | 2020-01-07 08:26 | RAD REPORT ---
EXAM DESCRIPTION: RAD - Chest Single View - 01/06/2020 10:04 pm CLINICAL HISTORY: Fever;Dyspnea Chest pain. COMPARISON: Chest For Pe Angio dated 01/06/2020 FINDINGS: Portable technique limits examination quality. Mild interstitial prominence is present bilaterally. The heart is normal in size. No displaced fractu res. IMPRESSION: Mild interstitial prominence may indicate viral bronchitis.
--- NOTE | 2020-01-08 12:06 | RAD REPORT ---
EXAM DESCRIPTION: Chest For Pe Angio CLINICAL HISTORY: The patient is 29 years old and is Female; DYSPNEA COMPARISON: One. FINDINGS: Acute. No pulmonary embolism. Bilateral breast implants. Few ground glass opacities scattered throughout the mid and lower lung zones. Mild interlobular septa l thickening. IMPRESSION: Imaging features can be seen with COVID-19 pneumonia, though are nonspecific and can occ ur with a variety of infectious and noninfectious processes. Electronically signed by: Ezekiel Dia DO 01/06/2020 11:00 PM EMPLOYEE SERVICE OFFICER Due to temporary technical issues with the PACS/Fluency reporting system, reports are being signed by the in house radiologist without review as a courtesy to ensure prompt reporting. The interpreting r adiologist is fully responsible for the content of the report.
--- NOTE | 2020-01-10 07:53 | EKG ---
Test Date: 2020-01-06 Test Time: 22:05:08 Administrative Support Technician: Kimo MEASUREMENT RESULTS: Intervals: Rate: 45 [place]: 134 QRSD: 90 QT: 462 QTc: 399 Manquin: P: 25 [place]: 134 QRS: 51 T: 42 INTERPRETIVE STATEMENTS: Marked sinus bradycardia Abnormal ECG No previous ECG available for comparison Electronically Signed On 01-10-20 07:42:28 RETAIL VISUAL MERCHANDISER by Josue Martins
== END 2020-01-07 00:42 | disposition home or self-care (01) ==
LOC: ER 20:54
DX: J18.9 Pneumonia, unspecified organism (principal)
CPT/HCPCS: 36415; 71045; 71275; 80048; 81003; 81025; 82565; 83880; 84145; 84484; 85025; 85610; 85730; 87040; 87070; 87081; 87804; 93005; 96374; 96375; 99285; J2405; Q9967

== ENCOUNTER 2020-06-25 08:35 | Emergency (ER) | payer SELFPAY ==
--- OUTSIDE RECORDS SUMMARY | 2020-06-25 08:38 | XMS REPORT | Continuity of Care Document ---
:1990 Author Organization [facility] t Address [address] [place] [address] Care Team Providers Name Role Phone Asked, No Pcp Primary Care Physician Unavailable Provider, Urgent Care Attending Clinician Unavailable Laurent MAYS P. Attending Clinician Problems This patient has no known problems. Allergies, Adverse Reactions, Alerts This patient has no known allergies or adverse reactions. Social History Social Habit Start Date Stop Date Quantity Comments Source Tobacco use and 2019-10-14 2019-10-14 Never used [facility] ethodist exposure 00:00:00 00:00:00 Alcohol intake 2019-10-14 2019-10-14 Ex-drinker [facility]odist 00:00:00 00:00:00 (finding) Sex Ass[birth year] [facility] ethodist 00:00:00 00:00:00 Smoking Status Start Date Stop Date Source Never smoker [place] [facility] t Medications This patient has no known medications. Vital Signs Vital Name Observation Time Observation Value Comments Source Systolic blood 2019-10-14 13:30:00 112 mm[Hg] Bharatito n [facility] pressure Diastolic blood 2019-10-14 13:30:00 65 mm[Hg] Hamzah on [facility] pressure Heart rate 2019-10-14 13:30:00 49 /min Aidan Pierce Respiratory rate 2019-10-14 13:30:00 18 /min Bharati ton [facility] Oxygen saturation in 2019-10-14 13:30:00 97 /min Aidan Pierce Arterial blood by Pulse oximetry Body temperature 2019-10-14 12:25:00 36.5 Robyn Bharati Pierce Body height 2019-10-14 12:25:00 152.4 cm Aidan Pierce Body weight 2019-10-14 12:25:00 66.367 kg Aidan Pierce BMI 2019-10-14 12:25:00 28.57 kg/m2 Aidan Pierce Procedures Procedure Date / Time Performing Clinician Source Performed CT HEAD WO CONTRAST 2019-10-14 13:47:07 Bethany Mancilla XR CHEST 1 VW PORTABLE 2019-10-14 13:30:59 Bethany Mancilla [facility] ECG 12-LEAD 2019-10-14 13:03:12 Bethany Mancilla Met [facility] ECG ED PRELIMINARY 2019-10-14 12:41:38 Bethany Mancilla INTERPRETATION HC COMPLETE BLD COUNT 2019-10-14 12:41:00 Bethany Mancilla on [facility] W/AUTO DIFF COMPREHENSIVE METABOLIC 2019-10-14 12:41:00 Bethany Mancilla [facility] PANEL CREATINE KINASE, TOTAL 2019-10-14 12:41:00 Bethany Mancillaist (CPK) TROPONIN 2019-10-14 12:41:00 Bethany Mancilla Met [facility] B NATRIURETIC PEPTIDE 2019-10-14 12:41:00 Bethany Mancilla on [facility] ESTIMATED GFR 2019-10-14 12:41:00 Bethany Mancilla Met [facility] HCG QUALITATIVE, SERUM 2019-10-14 12:41:00 Bethany Mancilla [facility] SCREEN Plan of Care Planned Activity Planned Date Details Comments Source Future Scheduled 2020-09-25 INFLUENZA VACCINE Arun garcia [facility] Test 00:00:00 [code = INFLUENZA VACCINE] Future Scheduled 2009 Screening for Bermudez Me thodist Test 00:00:00 malignant neoplasm of cervix (procedure) [code = 313431789] Future Scheduled 2006 Hepatitis C Aidan Met [facility]odist Test 00:00:00 screening (procedure) [code = 833131709] Future Scheduled 2004 COVID-19 VACCINE (1) Titus long [facility] Test 00:00:00 [code = COVID-19 VACCINE (1)] Encounters Start End Encounter Admission Attending Care Care Encounter Source Date/Time Date/Time Type Type Clinicians Facility Department ID 2020-06-17 2020-06-17 Urgent Provider, [facility] [id number] 14:22:34 14:42:34 [facility] [id number] [facility] [id number] [place] [id number] [address] 2019-10-14 2019-10-14 Emergency [facility] [id number] [place] 00:00:00 00:00:00 BETHANY [address] Results Test Description Test Time [...] Marked sinus bradycardia-No previo us ECGs available- [place] [facility] Head Wo [id number] 13:49:31Hm Interface, Radiology Results Incoming - 10/14/2019 1:52 PM CDTFormatting of this note might be di fferent from the original.EXAMINATION: CT HEAD WO CONTRASTCOMPARISON: NoneCLINICAL HISTORY fall syncope. TECHNIQUE: Non-contrast CT scan of the head with thin-section contiguous transaxial images fromthe skull base to the vertex. CT scans are performed using radiation dose reduction techniques. Technical factors are evaluated and adjusted to ensure appropriate moderation of exposure. Automated dosemanagement technology is applied to adjust radiation exposure while achieving a highly diagnostic quality image.FINDINGS:Nonenhanced emergency cranial CT was performed at approximately 1335 hoursThe ventricles and sulci are normal.There is no definite acute or midline shift or extra-axial lesion.Bone s ettings demonstrate the calvarium to be intact.IMPRESSION:No significant acute intracranial abnormalities.[facility]-[id number] MethodistXR Chest 1 Vw [id number] 13:38:44Hm Interface, Radiology Results - 10/14/2019 1:41 PM CDT EXAMINATION: XR CHEST 1 VW PORTABLECLINICAL HISTORY: SOBCOMPARISON: None.IMPRESSION: Single frontal view reveals a prominent cardiac silhouette. Lungs without a consolidative process. Pleural margins are sharp. The remainder of the examination is unremarkable.[facility]-[id number] MethodistECG ED Preliminary Interpretation - Not an [id number] 12:41:38 Test Item Value Reference Range Interpretation Comments CAESAR (test code = CAESAR) Bethany Mancilla MD 10/14/2019 2:14 PME ED Preliminary Interpretation - Not an OrderPerformed by: Bethany Mancilla MDAuthorized by: Bethany Mancilla MD ECG reviewed by ED Physician in the absence of a brew house supervisor: yes Interpretation: Interpretation: abnormal Rate: ECG rate: 49 ECG rate assessment: bradycardic Rhythm: Rhythm: sinus bradycardia Ectopy: Ectopy: none QRS: QRS axis: NormalConduction: Conduction: normal ST segments: ST segments: NormalT waves: T waves: normal Lab Interpretation Abnormal (test code = 17036-2) Aidan Pierce
[2020-06-25] MEDS ORDERED: CYCLOBENZAPRINE 10 MG TAB ONE (10:48)
[2020-06-25] MEDS ORDERED: HYDROCODONE/APAP 10/325 TAB ONE (10:49)
[2020-06-25] MEDS ORDERED: LIDOCAINE 4% PATCH ONE (10:49)
[2020-06-25] MEDS ORDERED: KETOROLAC 30 MG/ML INJ ONE (10:49)
--- NOTE | 2020-06-25 11:40 | ER ---
Nurse's Notes [facility] Name: Stella Owens Age: 29 yrs Sex: Female : 1990 Arrival Date: 06/25/2020 Time: 08:37 Bed 8 Private MD: Diagnosis: Lumbago with sciatica, left side Presentation: 06/25 08:47 Chief complaint: Patient states: pain to LLQ and left low back radiating down to L leg aa5 that began 1 week ago. Pt states "the only thing I can remember is lifting a box but I don't think that's why I am hurting". Coronavirus screen: At this time, the client does not indicate any symptoms associated with coronavirus-19. Ebola Screen: Patient negative for fever greater than or equal to 101.5 degrees Fahrenheit, and additional compatible Ebola Virus Disease symptoms. Initial Sepsis Screen: Does the patient meet any 2 criteria? No. Patient's initial sepsis screen is negative. Does the patient have a suspected source of infection? No. Patient's initial sepsis screen is negative. Risk Assessment: Do you want to hurt yourself or someone else? Patient reports no desire to harm self or others. Onset of symptoms was May 2020. 08:47 Acuity: LUCIAN 3 aa5 08:47 Method Of Arrival: Ambulatory aa5 Historical: - Allergies: 08:49 No Known Allergies; aa5 - Home Meds: 08:49 None [Active]; aa5 - PMHx: 08:49 Scoliosis; aa5 - Immunization history:: Adult Immunizations unknown. - Social history:: Smoking status: Patient denies any tobacco usage or history of. Screenin:45 Abuse screen: Denies threats or abuse. Denies injuries from another. Nutritional ss screening: No deficits noted. Tuberculosis screening: Never had TB. Fall Risk None identified. Assessment: 10:15 General: Appears uncomfortable, Behavior is calm, cooperative, Denies fever, feeling ss ill, fatigue, chills. Pain: Complains of pain in lumbar area Pain radiates to left leg Pain currently is 8 out of 10 on a pain scale. Quality of pain is described as aching, Pain began 1 week ago Is continuous, Aggravated by increased activity. Neuro: Level of Consciousness is awake, alert, obeys commands, Oriented to person, place, time, situation, Gel Coater are equal bilaterally Moves all extremities. Full function Speech is normal, Facial symmetry appears normal, Pupils are PERRLA. Cardiovascular: Capillary refill < 3 seconds is brisk in bilateral fingers. Respiratory: Airway is patent Trachea midline Respiratory effort is even, unlabored, Respiratory pattern is regular, symmetrical. GI: No signs and/or symptoms were reported involving the gastrointestinal system. Patient currently denies abdominal pain, diarrhea, nausea, vomiting. EENT: Oral mucosa is moist. Throat is clear. Derm: Skin is intact, is healthy with good turgor, Skin is dry, Skin is pink, warm \\T\\ dry. normal. 11:04 Reassessment: Patient appears in no apparent distress at this time. Patient and/or ca1 family updated on plan of care and expected duration. Pain level reassessed. Patient is alert, oriented x 3, equal unlabored respirations, skin warm/dry/pink. 11:59 Reassessment: Patient appears in no apparent distress at this time. Patient and/or ss family updated on plan of care and expected duration. Pain level reassessed. Patient is alert, oriented x 3, equal unlabored respirations, skin warm/dry/pink. Patient states feeling better. Patient states symptoms have improved. Vital Signs: 08:49 BP 117 / 71; Pulse 73; Resp 18 S; Temp 98.3(O); Pulse Ox 99% on R/A; aa5 11:04 BP 108 / 70; Pulse 81; Resp 16 S; Pulse Ox 99% on R/A; ca1 ED Course: 08:37 Patient arrived in ED. am2 08:47 Arm band placed on. aa5 08:48 Triage completed. aa5 09:44 Nik Olea NP is PHCP. pm1 09:45 Valdez Rodriguez MD is Attending Physician. pm1 09:45 Patient has correct armband on for positive identification. Bed in low position. Call ss light in reach. 10:14 Arcelia Jones, TAHMINA is Primary Nurse. ss 11:58 No provider procedures requiring assistance completed. Patient did not have IV access ss during this emergency room visit. intact, bleeding controlled, No redness/swelling at site. Pressure dressing applied. Administered Medications: 10:30 Drug: TORadol (ketorolac) 60 mg Route: IM; Site: left gluteus; ca1 12:00 Follow up: Response: No adverse reaction; Pain is decreased ss 10:35 Drug: Lidoderm 5 % (700 mg/patch) 1 patches Route: Topical; Site: affected area; ca1 10:38 Drug: Flexeril (cyclobenzaprine) 10 mg Route: PO; ca1 12:00 Follow up: Response: No adverse reaction; Pain is decreased ss 10:40 Not Given (Pt is driving home): [place] (HYDROcodone-acetaminophen) 10 mg-325 mg 1 tabs ca1 PO once; RASS on ADMIN: Combtv4, Very Agttd3, Agttd2, Rstlss1, AlertClm0, Drwsy-1, Lt Sdtn-2, Mod Sdtn-3, Dp Sdtn-4, UnArsble-5 Outcome: 11:40 Discharge ordered by . pm1 11:58 Discharged to home ambulatory. ss 11:58 Condition: improved 11:58 Discharge instructions given to patient, Instructed on discharge instructions, follow up and referral plans. medication usage, Demonstrated understanding of instructions, follow-up care, medications, Prescriptions given X 4. 12:00 Patient left the ED. Signatures: Virginia Gibson, RN RN aa5 Arcelia Jones RN RN ss Nik Olea, TIP CUTTER TIP CUTTER pm1 Sarika Navarro am2 Kathy Polo RN RN ca1
--- NOTE | 2020-06-25 11:40 | EDPHYS ---
Physician Documentation [facility] Name: Stella Owens Age: 29 yrs Sex: Female : 1990 Arrival Date: 06/25/2020 Time: 08:37 Bed 8 Private MD: ED Physician Valdez Rodriguez HPI: 06/25 10:16 This 29 yrs old Female presents to ER via Ambulatory with complaints of Flank pm1 Pain - radiating to LLE. 10:16 The patient complains of pain in the left low back. The pain radiates to the left leg. pm1 Onset: The symptoms/episode began/occurred 1 week(s) ago. Modifying factors: The symptoms are alleviated by remaining still, the symptoms are aggravated by movement. Associated signs and symptoms: Pertinent negatives: dysuria, fever, numbness, tingling, incontinence. Severity of pain: in the emergency department the pain is unchanged. The patient has not experienced similar symptoms in the past. The patient has not recently seen a physician. Patient with onset of low back pain with radiation to left lower leg after picking up an object. Historical: - Allergies: 08:49 No Known Allergies; aa5 - Home Meds: 08:49 None [Active]; aa5 - PMHx: 08:49 Scoliosis; aa5 - Immunization history:: Adult Immunizations unknown. - Social history:: Smoking status: Patient denies any tobacco usage or history of. ROS: 10:16 Constitutional: Negative for fever, chills, and weight loss, Cardiovascular: Negative pm1 for chest pain, palpitations, and edema, Respiratory: Negative for shortness of breath, cough, wheezing, and pleuritic chest pain, Abdomen/GI: Negative for abdominal pain, nausea, vomiting, diarrhea, and constipation. 10:16 : Negative for injury, bleeding, discharge, and swelling, MS/Extremity: Negative for injury and deformity, Skin: Negative for injury, rash, and discoloration, Neuro: Negative for headache, weakness, numbness, tingling, and seizure. 10:16 Back: Positive for of the low back area, Negative for decreased range of motion. Exam: 10:16 Constitutional: This is a well developed, well nourished patient who is awake, alert, pm1 and in no acute distress. Head/Face: Normocephalic, atraumatic. 10:16 Skin: Warm, dry with normal turgor. Normal color with no rashes, no lesions, and no evidence of cellulitis. MS/ Extremity: Pulses equal, no cyanosis. Neurovascular intact. Full, normal range of motion. 10:16 Cardiovascular: Exam negative for acute changes, Rate: normal, Rhythm: regular, Pulses: no pulse deficits are appreciated. 10:16 Respiratory: Exam negative for acute changes, respiratory distress, shortness of breath. 10:16 Back: scoliosis muscle spasm, is appreciated in the left low back. 10:16 Neuro: Exam negative for acute changes, Orientation: is normal, Mentation: is normal, Motor: moves all fours, strength is 5/5 in all extremities, strength is 5/5 in the dorsi and plantar flexion of both great toes, Sensation: is normal, no obvious gross deficits. Vital Signs: 08:49 BP 117 / 71; Pulse 73; Resp 18 S; Temp 98.3(O); Pulse Ox 99% on R/A; aa5 11:04 BP 108 / 70; Pulse 81; Resp 16 S; Pulse Ox 99% on R/A; ca1 MDM: 09:56 Patient medically screened. pm1 11:38 Data reviewed: vital signs. Data interpreted: Pulse oximetry: on room air is 99 %. pm1 Interpretation: normal. Counseling: I had a detailed discussion with the patient and/or guardian regarding: the historical points, exam findings, and any diagnostic results supporting the discharge/admit diagnosis, the need for outpatient follow up, a family practitioner, to return to the emergency department if symptoms worsen or persist or if there are any questions or concerns that arise at home. 11:38 ED course: pain 5/10 with medications given in the ER and patient reports that she is pm1 ready to go home. Administered Medications: 10:30 Drug: TORadol (ketorolac) 60 mg Route: IM; Site: left gluteus; ca1 12:00 Follow up: Response: No adverse reaction; Pain is decreased ss 10:35 Drug: Lidoderm 5 % (700 mg/patch) 1 patches Route: Topical; Site: affected area; ca1 10:38 Drug: Flexeril (cyclobenzaprine) 10 mg Route: PO; ca1 12:00 Follow up: Response: No adverse reaction; Pain is decreased ss 10:40 Not Given (Pt is driving home): [place] (HYDROcodone-acetaminophen) 10 mg-325 mg 1 tabs ca1 PO once; RASS on ADMIN: Combtv4, Very Agttd3, Agttd2, Rstlss1, AlertClm0, Drwsy-1, Lt Sdtn-2, Mod Sdtn-3, Dp Sdtn-4, UnArsble-5 Disposition: 15:15 Co-signature as Attending Physician, Valdez Rodriguez MD. rn Disposition: 06/25/20 11:40 Discharged to Home. Impression: Lumbago with sciatica, left side. - Condition is Stable. - Discharge Instructions: Back Pain, Adult, Sciatica. - Prescriptions for Lidoderm 5 % Topical adhesive patch,medicated - apply 1 patch by TRANSDERMAL route once daily As needed On for 12 hours and off for 12 hours in a 24 hour period; 15 Transdermal Patch. Tylenol- Codeine #3 300-30 mg Oral Tablet - take 2 tablets by ORAL route every 6 hours As needed; 20 tablet. Cyclobenzaprine 10 mg Oral Tablet - take 1 tablet by ORAL route every 8 hours As needed; 30 tablet. Diclofenac Sodium 75 mg Oral Tablet Sustained Release - take 1 tablet by ORAL route 2 times per day; 30 tablet. - Work release form, Medication Reconciliation Form, Thank You Letter, Antibiotic Education, Prescription Opioid Use form. - Follow up: Emergency Department; When: As needed; Reason: Worsening of condition. Follow up: Private Physician; When: 2 - 3 days; Reason: Recheck today's complaints, Continuance of care, Re-evaluation by your physician. - Problem is new. - Symptoms have improved. Signatures: Valdez Rodriguez MD MD rn Calderon, Audri RN RN aa5 Arcelia Jones RN RN ss Nik Olea, BAG BUILDER BAG BUILDER pm1 Kathy Polo RN RN ca1 Corrections: (The following items were deleted from the chart) 12:00 11:40 06/25/2020 11:40 Discharged to Home. Impression: Lumbago with sciatica, left ss side. Condition is Stable. Forms are Medication Reconciliation Form, Thank You Letter, Antibiotic Education, Prescription Opioid Use. Follow up: Emergency Department; When: As needed; Reason: Worsening of condition. Follow up: Private Physician; When: 2 - 3 days; Reason: Recheck today's complaints, Continuance of care, Re-evaluation by your physician. Problem is new. Symptoms have improved. pm1
[2020-06-25 12:04] VITALS: TEMP 98.3; O2SAT 99
[2020-06-25 12:05] VITALS: BP 108/70
== END 2020-06-25 12:00 | disposition home or self-care (01) ==
LOC: ER 08:35
DX: M54.42 Lumbago with sciatica, left side (principal)
CPT/HCPCS: 96372; 99283

== ENCOUNTER 2021-05-31 20:48 | Emergency (ER) | payer SELFPAY ==
--- OUTSIDE RECORDS SUMMARY | 2021-05-31 20:52 | XMS REPORT | Continuity of Care Document ---
:1990 Author Organization [facility] t Address [address] [place] [address] Care Team Providers Name Role Phone Provider, [facility] Attending Clinician Unavailable Anene SUPERVISOR PASTRY Attending Clinician ANENE Attending Clinician Unavailable PATRICK Attending Clinician Unavailable TANISHA Attending Clinician Unavailable Advance Directives Directive Decision Effective Termination Comments Source Date Date Healthcare Agents on N/A [facility] FileNameRelationshipHealthcare [facility] Agent Medical RelationshipCommunicationWinslow [facility] [phone] (Mobile) Problems Condition Condition Condition Status Onset Resolution Last Treating Co mments Source Name Details Category Date Date Treatment Clinician Date Encounter Encounter Disease Active Uni vers for for 05-28 ity of [place] 00 Medical management management Br anch , , unspecifie unspecifie d type d type Nexplanon Nexplanon Disease Active Uni vers removal removal 05-28 ity of 00:00: [address] Allergies, Adverse Reactions, Alerts Allergy Allergy Status Severity Reaction(s) Onset Inactive Treating Comm ents Source Name Type Date Date Clinician NO KNOWN Drug Active Univers ALLERGIE Class ity of S [facility] Social History Social Habit Start Date Stop Date Quantity Comments Source Tobacco use and 2020-06-17 2020-06-17 Never used Universit y of exposure 00:00:00 00:00:00 [facility] Alcohol intake 2020-06-17 2020-06-17 Current University of 00:00:00 00:00:00 non-drinker of [facility] alcohol Branch (finding) Sex Ass[birth year] Universit y of 00:00:00 00:00:00 [facility] Smoking Status Start Date Stop Date Source Never smoker [facility] Medications Ordered Filled Start Stop Current Ordering Indication Dosage Frequency Signature Comments Components Source Medication Medication Date Date Medication? Clinician (SIG) Name Name charles 1- No [id number] 5mL Take 5 mL Univers mine-pseudo 06-17 by mouth 4 i ty of ephedrine-D 00:00: 04:59 (four) Donovan as M (BROMFED 00 :00 times Medical DM) 2-30-10 daily as Bran ch mg/5 mL needed for syrup Congestion /Allergies or Cough for up to 10 days. Vital Signs Vital Name Observation Time Observation Value Comments Source Systolic blood 2020-06-17 19:24:00 113 mm[Hg] Univer sity of [facility] Diastolic blood 2020-06-17 19:24:00 73 mm[Hg] Unive rsity of [facility] Heart rate 2020-06-17 19:24:00 74 /min [facility] Body temperature 2020-06-17 19:24:[address] [facility] Respiratory rate 2020-06-17 19:24:00 16 /min [facility] Body weight 2020-06-17 19:24:[address] [facility] BMI 2020-06-17 19:24:00 24.69 kg/m2 [facility] Oxygen saturation in 2020-06-17 19:24:00 98 /min [facility] Arterial blood by [facility] Pulse oximetry Branch Systolic blood 2020-06-17 19:24:00 113 mm[Hg] Univer sity of [facility] Diastolic blood 2020-06-17 19:24:00 73 mm[Hg] Unive rsity of [facility] Heart rate 2020-06-17 19:24:00 74 [facility] 2020-06-17 19:24:[address] [facility] Respiratory rate 2020-06-17 19:24:00 16 /min [facility] Body weight 2020-06-17 19:24:[address] [facility] BMI 2020-06-17 19:24:00 24.69 kg/m2 [facility] Oxygen saturation in 2020-06-17 19:24:00 98 /min University Arterial blood by [facility] Pulse oximetry Branch Procedures Procedure Date / Time Performed Performing Clinician Sourc e POCT GRP A STREP 2020-06-17 19:25:00 Barbara Humphrey [facility] Encounters Start End Encounter Admission Attending Care Care Encounter Source Date/Time Date/Time Type Type Clinicians Facility Department ID 2020-06-17 2020-06-17 Urgent Provider, Андрей [facility] [id number] Univers 14:22:34 14:42:34 Care [id number] Donovan as Professio [phone] Ia dical [address] 2020-06-17 2020-06-17 Urgent Provider, [facility] [id number] 14:22:34 14:42:34 Care Андр[facility] [id number] Care [place] [id number] Professio [phone] [place] [address] [address] 2020-06-17 2020-06-17 Outpatient [facility] [id number] Univers 14:40:00 14:40:00 [id number] lina [facility] 2020-06-17 2020-06-17 Outpatient Helen HUMPHREY [facility] [id number] Univers 14:40:00 14:40:00 BARBARA [facility] 2019-10-14 2019-10-14 Emergency PATIRCK, [facility] [id number] [address] [place] 00:00:00 00:00:[address] 2019-05-12 2019-05-12 Outpatient Helen GARAY [facility] [id number] Univers 13:00:00 13:00:00 CHASIDY [id number] ity o f [facility] 2019-05-12 2019-05-12 Outpatient Helen GARAY [facility] [id number] Univers 13:00:00 13:00:00 CHASIDY nix f [facility] Results Test Description Test Time Test Comments Results Result Comments Source POCT GRP A STREP (MOLECULAR) 2020-06-17 19:35:00 Test Item Value Reference Range Interpretation Comme nts POCT GP A STREP (test code = 88728-2) negative Negative - Negat malena Lab Interpretation (test code = 41154-9) Normal [facility]
[2021-05-31] MEDS ORDERED: ONDANSETRON 4 MG/2 ML VIAL ONE (21:53)
[2021-05-31] MEDS ORDERED: dexAMETHasone 10 MG/ML VIAL ONE (21:53)
[2021-05-31] MEDS ORDERED: KETOROLAC 30 MG/ML INJ ONE (21:53)
[2021-05-31] MEDS ORDERED: NA CHLORIDE 0.9% 1,000 ML ONE (21:54)
[2021-05-31 22:00] LABS: Absolute Lymphocytes (CBC) 2.7 K/uL (0.7-4.9); Hematocrit 44.8 % (36.0-45.0); Lymphocytes % 29.9 % (15.3-44.8); MPV 7.4 fL (7.6-11.3); RBC Red Blood Cell Count 4.97 M/uL (3.86-4.86)
[2021-05-31 22:06] LABS: Urine Blood Negative (Negative); Urine Glucose Negative (Negative); Urine Protein Negative (Negative); Urine Specific Gravity >=1.030 (1.005-1.030); Urine pH 5.5 (5.0-7.0)
--- NOTE | 2021-05-31 22:23 | RAD REPORT ---
EXAM DESCRIPTION: CT - CTHCSPWOC - 05/31/2021 10:08 pm CLINICAL HISTORY: PAIN COMPARISON: Soft Tissue Neck W/Contr dated 07/17/2019 TECHNIQUE: Axial 5 mm thick images of the head were obtained. Axial 2 mm thick images of the cervical spine were obtained with sagittal and coronal reconstruction images generated and reviewed. All CT scans are performed using dose optimization technique as appropriate and may include automated exposure control or mA/KV adjustment according to patient size. FINDINGS: CT HEAD WITHOUT CONTRAST: No acute hemorrhage, hydrocephalus or extra-axial collection is identified.No areas of brain edema or midline shift. The paranasal sinuses and mastoids are clear.The calvarium is intact. CT CERVICAL SPINE WITHOUT CONTRAST: No fracture or subluxation.No prevertebral soft tissues swelling is identified. IMPRESSION: No acute intracranial or cervical spine findings.Examination is within normal limits.
[2021-05-31 22:49] LABS: Urine Specific Gravity/Preg >1.030 (1.005-1.030)
[2021-05-31 22:59] LABS: Albumin 3.8 g/dL (3.4-5.0); Bilirubin Total 0.5 mg/dL (0.2-1.0); Potassium 3.5 mmol/L (3.5-5.1); Protein, Total 7.2 g/dL (6.4-8.2)
--- NOTE | 2021-05-31 23:45 | EDPHYS ---
Physician Documentation [facility] Name: Stella Owens Age: 30 yrs Sex: Female : 1990 Arrival Date: 05/31/2021 Time: 20:52 Bed 16 Private MD: MARY BETH Physician Brendan Alvarenga HPI: 05/31 23:34 This 30 yrs old Female presents to ER via Ambulatory with complaints of marv Headache, FACIAL PAIN. 23:34 The patient complains of pain to the top of head, forehead, right frontal area and marv right side of forehead. The patient describes the headache as aching. Onset: The symptoms/episode began/occurred 14 day(s) ago. Associated signs and symptoms: The patient has no apparent associated signs or symptoms. Severity of symptoms: At its worst the pain was moderate, in the emergency department the pain is unchanged. Headache History: The patient has had previous headaches and this one is similar to previous episodes. The symptoms are alleviated by nothing. the symptoms are aggravated by nothing. The patient has not experienced similar symptoms in the past. 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 - Social history:: Smoking status: Patient denies any tobacco usage or history of. Patient/guardian denies using alcohol. - Family history:: not pertinent. ROS: 23:34 Constitutional: Negative for fever, chills, and weight loss, Eyes: Negative for injury, marv pain, redness, and discharge, ENT: Negative for injury, pain, and discharge, Neck: Negative for injury, pain, and swelling, Cardiovascular: Negative for chest pain, palpitations, and edema, Respiratory: Negative for shortness of breath, cough, wheezing, and pleuritic chest pain, Abdomen/GI: Negative for abdominal pain, nausea, vomiting, diarrhea, and constipation, Back: Negative for injury and pain, : Negative for injury, bleeding, discharge, and swelling, MS/Extremity: Negative for injury and deformity, Skin: Negative for injury, rash, and discoloration, Psych: Negative for depression, anxiety, suicide ideation, homicidal ideation, and hallucinations, Allergy/Immunology: Negative for hives, rash, and allergies, Endocrine: Negative for neck swelling, polydipsia, polyuria, polyphagia, and marked weight changes, Hematologic/Lymphatic: Negative for swollen nodes, abnormal bleeding, and unusual bruising. 23:34 Neuro: Positive for headache. Exam: 23:34 Constitutional: This is a well developed, well nourished patient who is awake, alert, marv and in no acute distress. Head/Face: Normocephalic, atraumatic. Eyes: Pupils equal round and reactive to light, extra-ocular motions intact. Lids and lashes normal. Conjunctiva and sclera are non-icteric and not injected. Cornea within normal limits. Periorbital areas with no swelling, redness, or edema. ENT: Nares patent. No nasal discharge, no septal abnormalities noted. Tympanic membranes are normal and external auditory canals are clear. Oropharynx with no redness, swelling, or masses, exudates, or evidence of obstruction, uvula midline. Mucous membranes moist. Neck: Trachea midline, no thyromegaly or masses palpated, and no cervical lymphadenopathy. Supple, full range of motion without nuchal rigidity, or vertebral point tenderness. No Meningismus. Chest/axilla: Normal chest wall appearance and motion. Nontender with no deformity. No lesions are appreciated. Cardiovascular: Regular rate and rhythm with a normal S1 and S2. No gallops, murmurs, or rubs. Normal PMI, no JVD. No pulse deficits. Respiratory: Lungs have equal breath sounds bilaterally, clear to auscultation and percussion. No rales, rhonchi or wheezes noted. No increased work of breathing, no retractions or nasal flaring. Abdomen/GI: Soft, non-tender, with normal bowel sounds. No distension or tympany. No guarding or rebound. No evidence of tenderness throughout. Back: No spinal tenderness. No costovertebral tenderness. Full range of motion. Skin: Warm, dry with normal turgor. Normal color with no rashes, no lesions, and no evidence of cellulitis. MS/ Extremity: Pulses equal, no cyanosis. Neurovascular intact. Full, normal range of motion. Neuro: Awake and alert, GCS 15, oriented to person, place, time, and situation. Cranial nerves II-XII grossly intact. Motor strength 5/5 in all extremities. Sensory grossly intact. Cerebellar exam normal. Normal gait. Psych: Awake, alert, with orientation to person, place and time. Behavior, mood, and affect are within normal limits. Vital Signs: 21:00 BP 125 / 67; Pulse 75; Resp 18; Temp 97.9(TE); Pulse Ox 99% on R/A; Weight 67.13 kg; ld1 Height 5 ft. 0 in. (152.40 cm); Pain 6/10; 22:30 BP 107 / 60; Pulse 56; Resp 16; Pulse Ox 99% on R/A; ll3 23:30 BP 105 / 66; Pulse 46; Resp 15; Pulse Ox 100% on R/A; ll3 21:00 Body Mass Index 28.90 (67.13 kg, 152.40 cm) ld1 MDM: 21:37 Patient medically screened. [facility] 05/31 21:33 Order name: CBC with Diff; Complete Time: 23:34 marv 05/31 21:33 Order name: Comprehensive Metabolic Panel; Complete Time: 23:34 marv 05/31 21:33 Order name: CT Head C Spine; Complete Time: 23:34 marv 05/31 22:06 Order name: Urine Dipstick-Ancillary; Complete Time: 23:34 EDMS 05/31 22:07 Order name: Urine --Ancillary (enter results); Complete Time: 23:34 mw2 05/31 21:33 Order name: Urine Dipstick-Ancillary (obtain specimen); Complete Time: 22:06 [facility] 05/31 21:33 Order name: Urine Test (obtain specimen); Complete Time: 22:06 [facility] Administered Medications: 21:58 Drug: Decadron - Dexamethasone 10 mg Route: IVP; Site: left antecubital; ll3 23:51 Follow up: Response: No adverse reaction ll3 21:59 Drug: Ketorolac 30 mg Route: IVP; Site: left antecubital; ll3 23:51 Follow up: Response: No adverse reaction; Marked relief of symptoms ll3 22:00 Drug: Zofran (Ondansetron) 4 mg Route: IVP; Site: left antecubital; ll3 23:51 Follow up: Response: No adverse reaction ll3 22:07 Drug: NS 0.9% 1000 ml Route: IV; Rate: 1 bolus; Site: left antecubital; ll3 23:51 Follow up: Response: No adverse reaction; IV Status: Completed infusion; IV Intake: ll3 1000ml Disposition Summary: 05/31/21 23:44 Discharge Ordered Location: Home marv Problem: new marv Symptoms: have improved marv Condition: Stable marv Diagnosis - Headache marv - Strain of muscle, fascia and tendon at neck level, initial encounter marv Followup: marv - With: Private Physician - When: 2 - 3 days - Reason: Recheck today's complaints, Continuance of care, Re-evaluation by your physician Discharge Instructions: - Discharge Summary Sheet marv - General Headache Without Cause marv - General Headache Without Cause, [id number] marv - Cervical Strain and Sprain Rehab-SportsMed marv Forms: - Medication Reconciliation Form marv - Thank You Letter marv - Antibiotic Education marv - Prescription Opioid Use marv Prescriptions: - Ibuprofen 600 mg Oral Tablet - take 1 tablet by ORAL route every 6 hours As needed take with food; 30 tablet; marv Refills: 0, Product Selection Permitted - Medrol (Kareem) 4 mg Oral Tablets, Dose Pack - take 1 tablet by ORAL route as directed - follow package instructions; 1 marv packet; Refills: 0, Product Selection Permitted - Tylenol-Codeine #3 300 mg-30 mg Oral - take 2 tablet by ORAL route every 6 hours; 20 tablet; Refills: 0, Product marv Selection Permitted Signatures: Dispatcher [employer] Brendan House MD MD cha Dibbern, Lauren, RN RN ld1 Alberto Piedra RN RN ll3
--- NOTE | 2021-05-31 23:45 | ER ---
Nurse's Notes [facility] Name: Stella Owens Age: 30 yrs Sex: Female : 1990 Arrival Date: 05/31/2021 Time: 20:52 Bed 16 Private MD: Diagnosis: Headache;Strain of muscle, fascia and tendon at neck level, initial encounter Presentation: 05/31 21:00 Chief complaint: Patient states: Neck pain that began two weeks ago - It hurts really ld1 bad when I look down. I am hurting so bad that I can't sleep. Pt c/o bad pain in head - states it is not a headache. Coronavirus screen: At this time, the client does not indicate any symptoms associated with coronavirus-19. Ebola Screen: No symptoms or risks identified at this time. Initial Sepsis Screen: Does the patient meet any 2 criteria? No. Patient's initial sepsis screen is negative. Does the patient have a suspected source of infection? No. Patient's initial sepsis screen is negative. Risk Assessment: Do you want to hurt yourself or someone else? Patient reports no desire to harm self or others. Onset of symptoms was May 31, 2021. 21:00 Method Of Arrival: Ambulatory ld1 21:00 Acuity: LUCIAN 3 ld1 Triage Assessment: 21:02 Headache History: Denies prior headaches. General: Appears in no apparent distress. ld1 uncomfortable, Behavior is calm, cooperative, appropriate for age. Pain: Complains of pain in scalp Pain does not radiate. Pain currently is 7 out of 10 on a pain scale. Quality of pain is described as throbbing, Pain began 1 week. Neuro: Level of Consciousness is awake, alert, obeys commands, Oriented to person, place, time, situation. Neuro: Reports dizziness. Respiratory: Airway is patent Respiratory effort is even, unlabored, Respiratory pattern is regular, symmetrical. 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 - Social history:: Smoking status: Patient denies any tobacco usage or history of. Patient/guardian denies using alcohol. - Family history:: not pertinent. Screenin:36 Abuse screen: Denies threats or abuse. Nutritional screening: No deficits noted. ll3 Tuberculosis screening: No symptoms or risk factors identified. Fall Risk No fall in past 12 months (0 pts). No secondary diagnosis (0 pts). IV access (20 points). Ambulatory Aid- None/Bed Rest/Nurse Assist (0 pts). Gait- Normal/Bed Rest/Wheelchair (0 pts) Mental Status- Oriented to own ability (0 pts). Total Cotter Fall Scale indicates No Risk (0-24 pts). Assessment: 21:40 General: Appears uncomfortable, Behavior is calm, cooperative. Pain: Complains of pain ll3 in right temporal area. Neuro: Level of Consciousness is awake, alert, obeys commands, Oriented to person, place, time, situation. Cardiovascular: Patient's skin is warm and dry. Respiratory: Respiratory effort is even, unlabored, Respiratory pattern is regular, symmetrical. GI: Reports nausea. Derm: Skin is pink, warm \T\ dry. 22:30 Reassessment: No changes from previously documented assessment. Patient and/or family ll3 updated on plan of care and expected duration. Pain level reassessed. Patient is alert, oriented x 3, equal unlabored respirations, skin warm/dry/pink. States still feeling nauseated, ERP notified. 23:30 Reassessment: Patient and/or family updated on plan of care and expected duration. Pain ll3 level reassessed. Patient is alert, oriented x 3, equal unlabored respirations, skin warm/dry/pink. Patient states feeling better. Patient states symptoms have improved. Vital Signs: 21:00 BP 125 / 67; Pulse 75; Resp 18; Temp 97.9(TE); Pulse Ox 99% on R/A; Weight 67.13 kg; ld1 Height 5 ft. 0 in. (152.40 cm); Pain 6/10; 22:30 BP 107 / 60; Pulse 56; Resp 16; Pulse Ox 99% on R/A; ll3 23:30 BP 105 / 66; Pulse 46; Resp 15; Pulse Ox 100% on R/A; ll3 21:00 Body Mass Index 28.90 (67.13 kg, 152.40 cm) ld1 ED Course: 20:52 Patient arrived in ED. ja2 21:02 Triage completed. ld1 21:02 Arm band placed on right wrist. ld1 21:37 Brendan Alvarenga MD is Attending Physician. [facility] 21:46 Comprehensive Metabolic Panel Sent. ld1 21:46 CBC with Diff Sent. ld1 21:46 Inserted saline lock: 20 gauge in left antecubital area, using aseptic technique. Blood ld1 collected. 22:09 CT Head C Spine In Process Unspecified. EDMS 22:36 Patient has correct armband on for positive identification. Placed in gown. Bed in low ll3 position. Call light in reach. Side rails up X 1. 22:36 No provider procedures requiring assistance completed. ll3 04 00:26 Alberto Piedra, RN is Primary Nurse. ll3 00:27 IV discontinued, intact, bleeding controlled, No redness/swelling at site. Pressure ll3 dressing applied. Administered Medications: 04 21:58 Drug: Decadron - Dexamethasone 10 mg Route: IVP; Site: left antecubital; ll3 23:51 Follow up: Response: No adverse reaction ll3 21:59 Drug: Ketorolac 30 mg Route: IVP; Site: left antecubital; ll3 23:51 Follow up: Response: No adverse reaction; Marked relief of symptoms ll3 22:00 Drug: Zofran (Ondansetron) 4 mg Route: IVP; Site: left antecubital; ll3 23:51 Follow up: Response: No adverse reaction ll3 22:07 Drug: NS 0.9% 1000 ml Route: IV; Rate: 1 bolus; Site: left antecubital; ll3 23:51 Follow up: Response: No adverse reaction; IV Status: Completed infusion; IV Intake: ll3 1000ml Intake: 23:51 IV: 1000ml; Total: 1000ml. ll3 Outcome: 23:44 Discharge ordered by . [facility] 06/01 00:27 Discharged to home ambulatory. ll3 Condition: stable Discharge instructions given to patient, Instructed on discharge instructions, follow up and referral plans. medication usage, Demonstrated understanding of instructions, follow-up care, medications, Prescriptions given X 3. 00:27 Patient left the ED. ll3 Signatures: Dispatcher [employer] Brendan House MD MD cha Dibbern, Lauren, RN RN ld1 Jeanine Tamez Lynsea, RN RN ll3
[2021-06-01 09:32] VITALS: TEMP 97.9
[2021-06-01 09:34] VITALS: BP 105/66; O2SAT 100
== END 2021-06-01 00:27 | disposition home or self-care (01) ==
LOC: ER 20:48
DX: R51.9 Headache, unspecified (principal); S16.1XXA Strain of muscle, fascia and tendon at neck level, initial encounter
CPT/HCPCS: 36415; 70450; 72125; 80053; 81003; 81025; 85025; 96361; 96374; 96375; 99284; J1100; J2405; J7030

== ENCOUNTER 2021-06-04 13:23 | Emergency (ER) | payer SELFPAY ==
--- OUTSIDE RECORDS SUMMARY | 2021-06-04 13:26 | XMS REPORT | Continuity of Care Document ---
:1990 Author Organization [facility] t Address [address] [place] [address] Care Team Providers Name Role Phone Provider, [facility] Attending Clinician Unavailable Anene MACHINE HEDDLE CLEANER Attending Clinician ANENE Attending Clinician Unavailable PATRICK Attending Clinician Unavailable TANISHA Attending Clinician Unavailable Advance Directives Directive Decision Effective Termination Comments Source Date Date Healthcare Agents on N/A Univ ersity FileNameRelationshipHealthcare [facility] Agent Medical RelationshipCommunicationUnited [facility] [phone] (Mobile) Problems Condition Condition Condition Status Onset [...] vers removal removal 05-28 ity of 00:00: [address] Allergies, Adverse Reactions, Alerts Allergy Allergy Status Severity Reaction(s) Onset Inactive Treating Comm ents Source Name Type Date Date Clinician NO KNOWN Drug Active Univers ALLERGIE Class ity of [facility] Social History Social Habit Start Date Stop Date Quantity Comments Source Tobacco use and 2020-06-17 2020-06-17 Never used Universit y of exposure 00:00:00 00:00:00 [facility] Alcohol intake 2020-06-17 2020-06-17 Current University of 00:00:00 00:00:00 non-drinker of [facility] alcohol Branch (finding) Sex Ass[birth year] Universit y of 00:00:00 00:00:00 [facility] Smoking Status Start Date Stop Date Source Never smoker [facility] Medications Ordered Filled Start Stop Current Ordering Indication Dosage Frequency Signature Comments Components Source Medication Medication Date Date Medication? Clinician (SIG) Name Name charles 2020- No [id number] 5mL Take 5 mL Univers mine-pseudo 06-17 [...] 2020-06-17 19:24:00 113 mm[Hg] Univer [facility]ity [facility] Diastolic blood 2020-06-17 19:24:00 73 mm[Hg] [facility] Heart rate 2020-06-17 19:24:00 74 /min [facility] Body temperature 2020-06-17 19:24:00 36.89 Robyn [facility] Respiratory rate 2020-06-17 19:24:00 16 /min [facility] Body weight 2020-06-17 19:24:00 61.236 kg [facility] BMI 2020-06-17 19:24:00 24.69 kg/m2 [facility] Oxygen saturation in 2020-06-17 19:24:00 98 /min [facility] Arterial blood by [facility] Pulse oximetry Branch Systolic blood 2020-06-17 19:24:00 113 mm[Hg] Univer sity of [facility] Diastolic blood 2020-06-17 19:24:00 73 mm[Hg] Unive [facility] Heart rate 2020-06-17 19:24:00 74 /min [facility] Body temperature 2020-06-17 19:24:00 [facility].89 [facility] rate 2020-06-17 19:24:00 16 /min [facility] Body weight 2020-06-17 19:24:00 61.236 kg [facility] BMI 2020-06-17 19:24:00 24.69 kg/m2 [facility] Oxygen saturation in 2020-06-17 19:24:00 98 /min [facility] Arterial blood by [facility] Pulse oximetry Branch Procedures Procedure Date / Time Performed Performing Clinician Sourc e POCT GRP A STREP 2020-06-17 19:25:00 Barbara Humphrey [facility] Encounters Start End Encounter Admission Attending Care Care Encounter Source Date/Time Date/Time Type Type Clinicians Facility Department ID 2020-06-17 2020-06-17 Urgent Provider, [facility] [id number] Univers 14:22:34 14:42:34 Care [id number] as Professio [phone] Mn dical [address] 2020-06-17 2020-06-17 Urgent Provider, [facility] [id number] 14:22:34 14:42:34 Care [facility] [id number] Care [place] [id number] Professio [phone] [place] [address] [address] 2020-06-17 2020-06-17 Outpatient [facility] [id number] Univers 14:40:00 14:40:[id number] 2020-[facility]-17 2020-06-17 Outpatient Helen HUMPHREY [facility] [id number] Univers 14:40:00 14:40:00 BARBARA [facility] 2019-10-14 2019-10-14 Emergency PATRICK, [facility] [id number] [address] [place] 00:00:00 00:00:[address] 2019-05-12 2019-05-12 Outpatient Helen GARAY, [facility] [id number] Univers 13:00:00 13:00:00 CHASIDY [id number] ity o f [facility] 2019-05-12 2019-05-12 Outpatient R TANISHA, [facility] [id number] Univers 13:00:00 13:00:00 CHASIDY soria [facility] Results Test Description Test Time Test Comments Results Result Comments Source POCT GRP A STREP (MOLECULAR) 2020-06-17 19:35:00 Test Item Value Reference Range Interpretation Comme nts POCT GP A STREP (test code = 93343-3) negative Negative - Negat malena Lab Interpretation (test code = 30078-1) Normal [facility]
--- NOTE | 2021-06-04 14:37 | RAD REPORT ---
EXAM DESCRIPTION: CT - Head Brain Wo Cont - 06/04/2021 2:27 pm CLINICAL HISTORY: HEADACHE COMPARISON: No comparisons TECHNIQUE: All CT scans are performed using dose optimization technique as appropriate and may inclu de automated exposure control or mA/KV adjustment according to patient size. FINDINGS: No intracranial hemorrhage, hydrocephalus or extra-axial fluid collection.No areas of brai n edema or evidence of midline shift. The paranasal sinuses and mastoids are clear. The calvarium is intact. IMPRESSION: No acute intracranial abnormality.
[2021-06-04 17:15] LABS: SARS-COV-2 RT PCR NEGATIVE (NEGATIVE)
[2021-06-04] MEDS ORDERED: DIPHENHYDRAMINE 50 MG/ML VIAL ONE (17:30)
[2021-06-04] MEDS ORDERED: METOCLOPRAMIDE 10 MG/2mL INJ ONE (17:30)
[2021-06-04] MEDS ORDERED: KETOROLAC 30 MG/ML INJ ONE (17:30)
[2021-06-04] MEDS ORDERED: NA CHLORIDE 0.9% 1,000 ML ONE (17:30)
--- NOTE | 2021-06-04 18:15 | ER ---
Nurse's Notes [facility] Name: Stella Owens Age: 30 yrs Sex: Female : 1990 Arrival Date: 06/04/2021 Time: 13:28 Bed 16 Private MD: Diagnosis: Headache Presentation: 06/04 13:44 Chief complaint: Patient states: REBOLLAR, R side of face numb, weak, fatigue, N/V/D dizzy ll1 started last night. States she was seen last week for similar pain, diagnosed with migraines and stress. Coronavirus screen: Vaccine status: Patient reports being unvaccinated. Client denies travel out of the [place] in the last 14 days. At this time, the client does not indicate any symptoms associated with coronavirus-19. Ebola Screen: Patient denies travel to an Ebola-affected area in the 21 days before illness onset. Initial Sepsis Screen: Does the patient meet any 2 criteria? No. Patient's initial sepsis screen is negative. Does the patient have a suspected source of infection? Yes: S/S of meningitis or endocarditis. Risk Assessment: Do you want to hurt yourself or someone else? Patient reports no desire to harm self or others. Onset of symptoms was June 03, 2021. 13:44 Method Of Arrival: Wheelchair ll1 13:44 Acuity: LUCIAN 3 ll1 Triage Assessment: 13:46 General: Appears uncomfortable, Behavior is cooperative, appropriate for age. Pain: ll1 Complains of pain in head Quality of pain is described as aching, throbbing. Neuro: Reports dizziness, headache weakness. Respiratory: Reports shortness of breath. GI: Reports diarrhea, nausea, vomiting. Historical: - Allergies: 13:44 No Known Allergies; ll1 - PMHx: 13:44 scoliosis; ll1 - PSHx: 13:44 None; ll1 - Immunization history:: Client reports having NOT received the Covid vaccine. - Social history:: Smoking status: Patient denies any tobacco usage or history of. Screenin:00 Abuse screen: Denies threats or abuse. ss 17:00 Nutritional screening: No deficits noted. Tuberculosis screening: No symptoms or risk ss factors identified. Fall Risk None identified. Assessment: 15:00 Reassessment: No changes from previously documented assessment. Patient and/or family ll1 updated on plan of care and expected duration. Pain level reassessed. [facility]. 16:32 Reassessment: No changes from previously documented assessment. Patient and/or family ll1 updated on plan of care and expected duration. Pain level reassessed. Patient is alert, oriented x 3, equal unlabored respirations, skin warm/dry/pink. Vital Signs: 13:44 BP 103 / 77; Pulse 55; Resp 17; Temp 98.0; Pulse Ox 99% ; Weight 67.13 kg; Height 5 ft. ll1 0 in. (152.40 cm); Pain 10/10; 16:46 BP 97 / 62; Pulse 55; Pulse Ox 98% on R/A; mb7 17:45 BP 104 / 66; Pulse 56; Resp 18; Pulse Ox 100% ; ss 18:52 BP 106 / 63; Pulse 52; Resp 16; Temp 98.0; Pain 0/10; ss 13:44 Body Mass Index 28.90 (67.13 kg, 152.40 cm) ll1 ED Course: 13:28 Patient arrived in ED. ds1 13:42 Nik Olea NP is PHCP. pm1 13:42 Brendan Alvarenga MD is Attending Physician. pm1 13:44 Arm band placed on. ll1 13:46 Triage completed. ll1 14:28 CT Head Brain wo Cont In Process Unspecified. EDMS 16:32 Patient placed in an exam room, on a stretcher. ll1 16:44 Inserted saline lock: 20 gauge in right antecubital area, using aseptic technique. mb7 16:48 Bed in low position. Call light in reach. Side rails up X 1. Door closed. Noise mb7 minimized. Warm blanket given. 17:00 No provider procedures requiring assistance completed. ss 17:23 Arcelia Jones, RN is Primary Nurse. ss 18:52 IV discontinued, intact, bleeding controlled, No redness/swelling at site. Pressure ss dressing applied. Administered Medications: 17:35 Drug: NS 0.9% 1000 ml Route: IV; Rate: 1000 ml; Site: right antecubital; ss 18:51 Follow up: Response: No adverse reaction; IV Status: Completed infusion ss 17:36 Drug: Reglan (metoCLOPramide) 10 mg Route: IVP; Site: right antecubital; ss 18:52 Follow up: Response: No adverse reaction ss 17:36 Drug: Ketorolac 30 mg Route: IVP; Site: right antecubital; ss 18:51 Follow up: Response: No adverse reaction; Pain is decreased ss 17:36 Drug: Benadryl (diphenhydrAMINE) 25 mg Route: IVP; Site: right antecubital; ss 18:52 Follow up: Response: No adverse reaction ss Outcome: 17:00 Discharged to home ambulatory. ss 17:00 Condition: good ss 17:00 Discharge instructions given to patient, Instructed on discharge instructions, Demonstrated understanding of instructions, follow-up care, medications, Prescriptions given X 2. 18:15 Discharge ordered by . pm1 18:54 Patient left the ED. Signatures: Dispatcher [employer] [facility] Tamiko De Los Santos ds1 Arcelia Jones, RN RN ss Nik Olea, CLAYTON MOTHERS HELPER pm1 Anat Bullock RN RN 1 Keila Zazueta 7
--- NOTE | 2021-06-04 18:15 | EDPHYS ---
[facility] Name: Stella Owens Age: 30 yrs Sex: Female : 1990 Arrival Date: 06/04/2021 Time: 13:28 Bed 16 Private MD: ED Physician Brendan Alvarenga HPI: 06/04 14:16 This 30 yrs old Female presents to ER via Wheelchair with complaints of pm1 Numbness - R Side, Headache. 14:16 The patient complains of pain to the right side of head. The patient describes the pm1 headache as aching. 14:16 Onset: The symptoms/episode began/occurred yesterday. pm1 14:16 Associated signs and symptoms: Pertinent positives: right side of face numbness, pm1 generalized weakness, fatigue, N/V/D, dizziness. Severity of symptoms: in the emergency department the pain is unchanged. Headache History: Other Similar to headache from 1 week ago. Patient with CT head and labs and diagnosed with migraines and stress. Patient is currently experiencing lots of stress from work. The symptoms are alleviated by nothing. the symptoms are aggravated by stress. The patient has experienced a previous episode, last week. The patient has not recently seen a physician. Historical: - Allergies: 13:44 No Known Allergies; ll1 - PMHx: 13:44 scoliosis; ll1 - PSHx: 13:44 None; ll1 - Immunization history:: Client reports having NOT received the Covid vaccine. - Social history:: Smoking status: Patient denies any tobacco usage or history of. ROS: 14:16 Cardiovascular: Negative for chest pain, palpitations, and edema, Respiratory: Negative pm1 for shortness of breath, cough, wheezing, and pleuritic chest pain. 14:16 Back: Negative for injury and pain, MS/Extremity: Negative for injury and deformity, Skin: Negative for injury, rash, and discoloration. 14:16 Constitutional: Positive for fatigue, Negative for poor PO intake. 14:16 Abdomen/GI: Positive for nausea, vomiting, and diarrhea, Negative for abdominal pain. 14:16 Neuro: Positive for dizziness, headache, Negative for weakness. 14:16 All other systems are negative. Exam: 14:16 Constitutional: This is a well developed, well nourished patient who is awake, alert, pm1 and in no acute distress. Head/Face: Normocephalic, atraumatic. 14:16 Back: No spinal tenderness. No costovertebral tenderness. Full range of motion. Skin: Warm, dry with normal turgor. Normal color with no rashes, no lesions, and no evidence of cellulitis. MS/ Extremity: Pulses equal, no cyanosis. Neurovascular intact. Full, normal range of motion. 14:16 Eyes: Exam is negative for acute changes, Periorbital structures: appear normal, Extraocular movements: no acute changes. 14:16 ENT: Exam is negative for acute changes, Mouth: no acute changes, Lips: normal, moist, Oral mucosa: normal, pink and intact, moist. 14:16 Cardiovascular: Exam negative for acute changes, Rate: normal, Rhythm: regular, Pulses: no pulse deficits are appreciated. 14:16 Respiratory: Exam negative for acute changes, respiratory distress, shortness of breath, Breath sounds: are clear throughout. 14:16 Abdomen/GI: Inspection: abdomen appears normal, Palpation: abdomen is soft and non-tender, in all quadrants. 14:16 Neuro: Exam negative for acute changes, Orientation: is normal, Mentation: is normal, Cranial nerves: CN II- XII are normal as tested, Motor: is normal, moves all fours, Sensation: is normal, no obvious gross deficits, Gait: is steady, at a normal pace, without difficulty. Vital Signs: 13:44 BP 103 / 77; Pulse 55; Resp 17; Temp 98.0; Pulse Ox 99% ; Weight 67.13 kg; Height 5 ft. ll1 0 in. (152.40 cm); Pain 10/10; 16:46 BP 97 / 62; Pulse 55; Pulse Ox 98% on R/A; mb7 17:45 BP 104 / 66; Pulse 56; Resp 18; Pulse Ox 100% ; ss 18:52 BP 106 / 63; Pulse 52; Resp 16; Temp 98.0; Pain 0/10; ss 13:44 Body Mass Index 28.90 (67.13 kg, 152.40 cm) ll1 MDM: 13:46 Patient medically screened. pm1 17:23 Data reviewed: vital signs. Data interpreted: Pulse oximetry: on room air is 98 %. pm1 Interpretation: normal. 17:45 ED course: Discussed CT and lab findings with patient. Patient is reporting improvement pm1 in pain without medications. Will give patient's ordered medications from triage and will reassess prior to discharge. 18:14 Counseling: I had a detailed discussion with the patient and/or guardian regarding: the pm1 historical points, exam findings, and any diagnostic results supporting the discharge/admit diagnosis, lab results, radiology results, the need for outpatient follow up, to return to the emergency department if symptoms worsen or persist or if there are any questions or concerns that arise at home. 06/04 14:14 Order name: COVID-19/FLU A+B (Document "Date of Onset" if Symptomatic); Complete Time: pm1 17:16 06/04 14:09 Order name: CT Head Brain wo Cont; Complete Time: 14:51 pm1 06/04 14:14 Order name: IV Saline Lock; Complete Time: 17:36 pm1 Administered Medications: 17:35 Drug: NS 0.9% 1000 ml Route: IV; Rate: 1000 ml; Site: right antecubital; ss 18:51 Follow up: Response: No adverse reaction; IV Status: Completed infusion ss 17:36 Drug: Reglan (metoCLOPramide) 10 mg Route: IVP; Site: right antecubital; ss 18:52 Follow up: Response: No adverse reaction ss 17:36 Drug: Ketorolac 30 mg Route: IVP; Site: right antecubital; ss 18:51 Follow up: Response: No adverse reaction; Pain is decreased ss 17:36 Drug: Benadryl (diphenhydrAMINE) 25 mg Route: IVP; Site: right antecubital; ss 18:52 Follow up: Response: No adverse reaction ss Disposition Summary: 06/04/21 18:15 Discharge Ordered Location: Home pm1 Problem: new pm1 Symptoms: have improved pm1 Condition: Stable pm1 Diagnosis - Headache pm1 Followup: pm1 - With: Emergency Department - When: As needed - Reason: Worsening of condition Followup: pm1 - With: Private Physician - When: 2 - 3 days - Reason: Recheck today's complaints, Continuance of care, Re-evaluation by your physician Discharge Instructions: - Discharge Summary Sheet pm1 - General Headache Without Cause pm1 - Tension Headache, Adult pm1 Forms: - Medication Reconciliation Form pm1 - Thank You Letter pm1 - Antibiotic Education pm1 - Prescription Opioid Use pm1 - Work release form Prescriptions: - uajhayghoh-ujipxvo-parhqqnk - take 1 tablet by ORAL route every 4 hours As needed; 20 tablet; Refills: 0, pm1 Product Selection Permitted - ondansetron 4 mg Oral tablet,disintegrating - take 1 tablet by ORAL route every 8 hours As needed; 12 tablet; Refills: 0, pm1 Product Selection Permitted Addendum: 06/08/2021 18:36 Co-signature as Attending Physician, Brendan Alvarenga MD I agree with the assessment and c do plan of care. Signatures: Dispatcher [employer] EDKS Brendan Alvarenga MD MD cha Smirch, Shelby RN RN ss Nik Olea, CLAYTON DENTAL BILLING SPECIALIST pm1 Anat Bullock RN RN ll1 Corrections: (The following items were deleted from the chart) 06/04 17:34 17:29 The patient complains of pain to the right side of head, pm1 pm1 17:34 17:29 The patient describes the headache as aching, pm1 pm1
[2021-06-04 19:36] VITALS: TEMP 98
[2021-06-04 19:39] VITALS: O2SAT 100
[2021-06-04 19:41] VITALS: BP 106/63
== END 2021-06-04 18:54 | disposition home or self-care (01) ==
LOC: ER 13:23
DX: R51.9 Headache, unspecified (principal); R11.2 Nausea with vomiting, unspecified; R42 Dizziness and giddiness; R20.0 Anesthesia of skin; Z20.822 Contact with and (suspected) exposure to COVID-19
CPT/HCPCS: 0240U; 70450; 96361; 96374; 96375; 99284; J1200; J2765; J7030

== ENCOUNTER 2021-06-05 13:49 | Inpatient (IN) | payer SELFPAY ==
--- OUTSIDE RECORDS SUMMARY | 2021-06-05 13:52 | XMS REPORT | Continuity of Care Document ---
:1990 Author Organization [facility] t Address [address] [place] [address] Care Team Providers Name Role Phone Provider, [facility] Attending Clinician Unavailable Anene GROUTMAN Attending Clinician ANENE Attending Clinician Unavailable PATRICK Attending Clinician Unavailable TANISHA Attending Clinician Unavailable Advance Directives Directive Decision Effective Termination Comments Source Date Date Healthcare Agents on N/A Univ ersity FileNameRelationshipHealthcare [facility] Agent Medical RelationshipCommunicationL[facility] Gricelda RamírezFormerly [facility] Care [phone] (Mobile) Problems Condition Condition Condition Status Onset [...] vers removal removal 05-28 ity of 00:00: [address] Allergies, Adverse Reactions, Alerts Allergy Allergy Status Severity Reaction(s) Onset Inactive Treating Comm ents Source Name Type Date Date Clinician NO KNOWN Drug Active Univers ALLERGIE Class ity of [facility] Social History Social Habit Start Date Stop Date Quantity Comments Source Tobacco use and 2020-06-17 2020-06-17 Never used Universit y of exposure 00:00:00 00:00:00 [facility] Alcohol intake 2020-06-17 2020-06-17 Current University of 00:00:00 00:00:00 non-drinker of [facility] alcohol Branch (finding) Sex Ass[birth year] Universit y of 00:00:00 00:00:00 [facility] Smoking Status Start Date Stop Date Source Never smoker [facility] Medications Ordered Filled Start Stop Current Ordering Indication Dosage Frequency Signature Comments Components Source Medication Medication Date Date Medication? Clinician (SIG) Name Name charles 2020- No [id number] 5mL Take 5 mL Univers mine-pseudo 06-17 [...] 2020-06-17 19:24:00 113 mm[Hg] Univer sity of [facility] Diastolic blood 2020-06-17 19:24:00 73 mm[Hg] [facility] Heart rate 2020-06-17 19:24:00 74 /min [facility] Body temperature 2020-06-17 19:24:00 36.89 Robyn [facility] Respiratory rate 2020-06-17 19:24:00 16 /min [facility] Body weight 2020-06-17 19:24:00 61.236 kg [facility] BMI 2020-06-17 19:24:00 24.69 kg/m2 [facility] Oxygen saturation in 2020-06-17 19:24:00 98 /min [facility] Arterial blood by [facility] Pulse oximetry Branch Systolic blood 2020-06-17 19:24:00 113 mm[Hg] Univer sity of [facility] Diastolic blood 2020-06-17 19:24:00 73 mm[Hg] Unive rsity of [facility] Heart rate 2020-06-17 19:24:00 74 /[facility] 2020-06-17 19:24:00 36.89 [facility]yn [facility] Respiratory rate 2020-06-17 19:24:00 16 /min [facility] Body weight 2020-06-17 19:24:00 61.236 kg [facility] BMI 2020-06-17 19:24:00 24.69 kg/m2 [facility] Oxygen saturation in 2020-06-17 19:24:00 98 /min [facility] Arterial blood by [facility] Pulse oximetry Branch Procedures Procedure Date / Time Performed Performing Clinician Sourc e POCT GRP A STREP 2020-06-17 19:25:00 Barbara Humphrey [facility] Encounters Start End Encounter Admission Attending Care Care Encounter Source Date/Time Date/Time Type Type Clinicians Facility Department ID 2020-06-17 2020-06-17 Urgent Provider, [facility] [id number] 14:22:34 14:42:34 Care [facility] [id number] Care Wink [id number] Professio [id number] [place] [address] [address] 2020-06-17 2020-06-17 Urgent Provider, Андрей [facility] [id number] [facility] 14:22:34 14:42:34 Care Barbara Humphrey [id number] [id number] Donovan as Professio [phone] Sc dical [address] 2020-06-17 2020-06-17 Outpatient [facility] [id number] Univers 14:40:00 14:40:00 [id number] lina [facility] 2020-06-17 2020-06-17 Outpatient Helen HUMPHREY [facility] [id number] Univers 14:40:00 14:40:00 BARBARA mills [facility] 2019-10-14 2019-10-14 Emergency PATRICK, [facility] [id number] [address] [place] 00:00:00 00:00:[address] 2019-05-12 2019-05-12 Outpatient Helen GARAY, [facility] [id number] Univers 13:00:00 13:00:00 CHASIDY [id number] ity o f [facility] 2019-05-12 2019-05-12 Outpatient R TANISHA, [facility] [id number] Univers 13:00:00 13:00:00 CHASIDY soria [facility] Results Test Description Test Time Test Comments Results Result Comments Source POCT GRP A STREP (MOLECULAR) 2020-06-17 19:35:00 Test Item Value Reference Range Interpretation Comme nts POCT GP A STREP (test code = 05058-4) negative Negative - Negat malena Lab Interpretation (test code = 82441-9) Normal [facility]
[2021-06-05] MEDS ORDERED: dexAMETHasone 10 MG/ML VIAL ONE (14:35)
[2021-06-05] MEDS ORDERED: NA CHLORIDE 0.9% 1,000 ML ONE (14:35)
[2021-06-05 14:37] LABS: Lymphocytes % 26.9 % (15.3-44.8); MPV 7.3 fL (7.6-11.3); RBC Red Blood Cell Count 4.68 M/uL (3.86-4.86)
[2021-06-05 15:01] LABS: Thyroid Stimulating Hormone 0.403 uIU/mL (0.360-3.740)
[2021-06-05] MEDS ORDERED: METOCLOPRAMIDE 10 MG/2mL INJ ONE (15:21)
--- NOTE | 2021-06-05 15:28 | RAD REPORT ---
EXAM DESCRIPTION: MRI - Brain Wo Cont - 06/05/2021 3:20 pm CLINICAL HISTORY: right sided weakness/numbness, headache Headache, CVA COMPARISON: Head Brain Wo Cont dated 06/04/2021 TECHNIQUE: Multi-sequence, multiplanar MR imaging of the brain was performed without contrast. FINDINGS: No intracranial hemorrhage, hydrocephalus or extra-axial fluid collections. No edema or sh ift of midline structures. No findings to suspect brain mass. There is an oblong 10 x 5 mm acute infa rct seen in the right cerebellar hemisphere peripherally. In addition, there is 12 x 4 mm acute infar ct seen in the midbrain left of midline. Neither of these infarcts show hemorrhagic components. Midline structures are normally formed. Mastoid air cells and paranasal sinuses are clear. IMPRESSION: 10 x 5 mm acute infarct right cerebellar hemisphere peripherally. 12 x 4 mm acute infarct midbrain along the left aspect close to the midline.
--- NOTE | 2021-06-05 15:41 | ER ---
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 Coronavirus screen: At this time, bp the client does not indicate any symptoms associated with coronavirus-19. Ebola Screen: No symptoms or risks identified at this time. Initial Sepsis Screen: Does the patient meet any 2 criteria? No. Patient's initial sepsis screen is negative. Does the patient have a suspected source of infection? No. Patient's initial sepsis screen is negative. Risk Assessment: Do you want to hurt yourself or someone else? Patient reports no desire to harm self or others. Note SEEN FOR SAME AND CLEARED MX TIMES. S/SX RESOLVED AFTER LAST VISIT. Onset of symptoms is unknown. Care prior to arrival: IV initiated. 20 GA, in the left antecubital area, Glucose check: 84. 13:51 Method Of Arrival: EMS: [facility] bp 13:51 Acuity: LUCIAN 3 bp Triage Assessment: 14:00 Headache History: The patient has had previous headaches and this one is similar to bp previous episodes. General: Appears distressed, comfortable, Behavior is cooperative, appropriate for age, anxious. Pain: Complains of pain in left adventism Pain currently is 7 out of 10 on a pain scale. Pain began 2-3 days ago. Also complains of no other associated symptoms. EENT: No deficits noted. Neuro: Level of Consciousness is awake, alert, obeys commands, Oriented to Appropriate for age Branch Sales And Service Representative are SUBJECTIVELY WEAK ON RIGHT. Cardiovascular: No deficits noted. Respiratory: No deficits noted. GI: No signs and/or symptoms were reported involving the gastrointestinal system. : No signs and/or symptoms were reported regarding the genitourinary system. Derm: No deficits noted. Musculoskeletal: No deficits noted. SOCIAL SERVICE LIAISON: 19:31 LMP 2021 [facility] Historical: - Allergies: 13:54 No Known Allergies; bp - Home Meds: 13:54 aspirin 81 mg Oral TbEC 1 tab once daily [Active]; bp - PMHx: 13:54 scoliosis; bp - Immunization history:: Adult Immunizations up to date. - Social history:: Smoking status: Patient denies any tobacco usage or history of. - Family history:: not pertinent. - Hospitalizations: : No recent hospitalization is reported. Screenin:00 Abuse screen: Denies threats or abuse. Denies injuries from another. Nutritional bp screening: No deficits noted. Tuberculosis screening: No symptoms or risk factors identified. Fall Risk None identified. Assessment: 14:00 General: SEE TRIAGE NOTE. bp 14:41 Reassessment: PT TO MRI. bp 15:24 Reassessment: PT RETURNED FROM MRI. bp 16:00 Reassessment: No changes from previously documented assessment. Patient and/or family bp updated on plan of care and expected duration. Pain level reassessed. ADMIT INITIATED. 18:00 Reassessment: No changes from previously documented assessment. Patient and/or family bp updated on plan of care and expected duration. Pain level reassessed. DISPO CHANGED TO TRANSFER. 18:27 Reassessment: REPORT TO JOANNE MARTEL FOR [facility] RM 251. bp Vital Signs: 13:51 BP 128 / 80; Pulse 75; Resp 16; Temp 98; Pulse Ox 98% ; bp 14:30 BP 106 / 67; Pulse 63; Resp 27; Pulse Ox 100% ; bp 15:24 BP 117 / 80; Pulse 57; Resp 16; Pulse Ox 100% ; bp 18:00 BP 110 / 68; Pulse 80; Resp 16; Pulse Ox 100% ; bp [place] Coma Score: 15:38 Eye Response: spontaneous(4). Verbal Response: oriented(5). Motor Response: obeys rn commands(6). Total: 15. ED Course: 13:50 Patient arrived in ED. bp 13:54 Triage completed. bp 13:54 Valdez Rodriguez MD is Attending Physician. rn 13:54 Arm band placed on. bp 14:00 Patient has correct armband on for positive identification. Bed in low position. Call bp light in reach. Side rails up X2. 14:13 Broderick Rico, TAHMINA is Primary Nurse. bp 14:25 Maintain EMS IV. Dressing intact. Good blood return noted. Site clean \T\ dry. Gauge \T\ bp site: 20 G LEFT AC. 14:40 Brain Wo Cont MRI Sent. bp 15:21 Brain Wo Cont MRI In Process Unspecified. EDMS 15:39 Marlon Erickson is Hospitalizing Provider. rn 15:56 CT Neck Angio In Process Unspecified. EDMS 16:20 initiated transfer to [facility]. bd 18:28 No provider procedures requiring assistance completed. Patient transferred, IV remains bp in place. 19:27 pt accepted in transfer to [facility]. bd Administered Medications: 14:30 Drug: NS 0.9% 1000 ml Route: IV; Rate: 1000 ml; Site: left antecubital; bp 18:09 Follow up: IV Status: Completed infusion; IV Intake: 1000ml bp 14:30 Drug: Decadron - Dexamethasone 10 mg Route: IVP; Site: left antecubital; bp 18:09 Follow up: Response: No adverse reaction bp 14:30 Drug: Reglan (metoCLOPramide) 10 mg Route: IVP; Site: left antecubital; bp 18:09 Follow up: Response: No adverse reaction bp 16:00 Drug: Aspirin Chewable Tablet 324 mg Route: PO; bp 18:08 Follow up: Response: No adverse reaction bp 16:00 Drug: foLIC Acid 1 mg Route: IVPB; Site: left antecubital; bp 18:08 Follow up: IV Status: Completed infusion; IV Intake: 100ml bp Intake: 18:08 IV: 100ml; Total: 100ml. bp 18:09 IV: 1000ml; Total: 1100ml. bp Outcome: 15:40 Decision to Hospitalize by Provider. rn 17:10 ER care complete, transfer ordered by . rn 18:27 Transferred by ground EMS [place] [facility]: [facility] bp 18:27 Condition: stable 18:27 Instructed on the need for transfer. 19:31 Patient left the ED. sm5 Signatures: Dispatcher [employer] EDMS Swati Grayson bd Valdez Rodriguez MD MD rn Peltier, Brian RN Maricruz Raphael RN RN [email or web address]
--- NOTE | 2021-06-05 15:41 | EDPHYS ---
Physician Documentation [facility] Name: Stella Owens Age: 30 yrs Sex: Female : 1990 Arrival Date: 06/05/2021 Time: 13:50 Bed 14 Private MD: ED Physician Valdez Rodriguez HPI: 06/05 14:13 This 30 yrs old Female presents to ER via EMS with complaints of Headache. rn 14:13 The patient complains of pain to the left samaritan and left occipital area. The patient rn describes the headache as aching. Onset: The symptoms/episode began/occurred 2 day(s) ago. Associated signs and symptoms: Pertinent negatives: altered mental status, fever, neck stiffness, rash, vision loss. Severity of symptoms: At its worst the pain was moderate, in the emergency department the pain is unchanged. Headache History: The patient has had previous headaches and this one is similar to previous episodes. The symptoms are alleviated by nothing. the symptoms are aggravated by nothing. The patient has experienced a previous episode. The patient has been recently seen at the [facility] Emergency Department. Pt reports headache, left sided, started 2 days ago, no trauma, assoc with right sided weakness and numbness. Seen here 2 days ago for this, neg ct head, got better with meds but not back to normal, discharged. States never went away. Went to clinic today and 911 called and brought her here. . 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 - Social history:: Smoking status: Patient denies any tobacco usage or history of. - Family history:: not pertinent. - Hospitalizations: : No recent hospitalization is reported. ROS: 14:13 Constitutional: Negative for fever, chills, and weight loss, Eyes: Negative for injury, rn pain, redness, and discharge, ENT: Negative for injury, pain, and discharge, Neck: Negative for injury, pain, and swelling, Cardiovascular: Negative for chest pain, palpitations, and edema, Respiratory: Negative for shortness of breath, cough, wheezing, and pleuritic chest pain, Abdomen/GI: Negative for abdominal pain, nausea, vomiting, diarrhea, and constipation, Back: Negative for injury and pain, : Negative for injury, bleeding, discharge, and swelling, MS/Extremity: Negative for injury and deformity, Skin: Negative for injury, rash, and discoloration, Neuro: Negative for seizure Exam: 14:13 Constitutional: This is a well developed, well nourished patient who is awake, alert, rn and in no acute distress. Head/Face: Normocephalic, atraumatic. Eyes: Periorbital areas with no swelling, redness, or edema. Neck: Trachea midline, no thyromegaly or masses palpated, and no cervical lymphadenopathy. Supple, full range of motion without nuchal rigidity, or vertebral point tenderness. No Meningismus. Cardiovascular: Regular rate and rhythm. No pulse deficits. Respiratory: No increased work of breathing, no retractions or nasal flaring. Abdomen/GI: Soft, non-tender Skin: Warm, dry with normal turgor. Normal color with no rashes, no lesions, and no evidence of cellulitis. MS/ Extremity: Pulses equal, no cyanosis. Neuro: Awake and alert, GCS 15, oriented to person, place, time, and situation. Cranial nerves II-XII grossly intact. Motor strength 5/5 LUE/LLE, 3/5 RUE/RLE. Vital Signs: 13:51 BP 128 / 80; Pulse 75; Resp 16; Temp 98; Pulse Ox 98% ; bp 14:30 BP 106 / 67; Pulse 63; Resp 27; Pulse Ox 100% ; bp 15:24 BP 117 / 80; Pulse 57; Resp 16; Pulse Ox 100% ; bp 18:00 BP 110 / 68; Pulse 80; Resp 16; Pulse Ox 100% ; bp Sanford Coma Score: 15:38 Eye Response: spontaneous(4). Verbal Response: oriented(5). Motor Response: obeys rn commands(6). Total: 15. MDM: 13:55 Patient medically screened. rn 15:38 Differential diagnosis: cerebral vascular accident, hypertensive headache, rn intracerebral hemorrhage, migraine, neoplasm, vasomotor headache. Data reviewed: vital signs, nurses notes, old medical records, radiologic studies, MRI, and as a result, I will admit patient. Counseling: I had a detailed discussion with the patient and/or guardian regarding: the historical points, exam findings, and any diagnostic results supporting the discharge/admit diagnosis, lab results, radiology results, the need for further work-up and treatment in the hospital. Response to treatment: There is no appreciated change of the patient's symptoms at this time, and as a result, I will admit patient. Admission orders: after a detailed discussion of the patient's condition and case, the admit orders are written by me. ED course: MRI shows 2 subacute CVA, right cerebellum and left midbrain, present for atleast 2 days, will admit for further w/u. . 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 after consultation with Dr. English who recommends transfer. . 06/05 14:02 Order name: CBC with Diff; Complete Time: 14:54 06/05 14:02 Order name: Basic Metabolic Panel; Complete Time: 15:06 06/05 14:02 Order name: TSH; Complete Time: 15:06 06/05 14:02 Order name: T4 Free; Complete Time: 15:06 06/05 15:31 Order name: SARS-COV-2 RT PCR (Document "Date of Onset" if Symptomatic) 06/05 16:04 Order name: Test Serum, [facility] 06/05 14:02 Order name: Brain Wo Cont MRI; Complete Time: 15:29 06/05 15:38 Order name: CT Neck Angio; Complete Time: 16:09 06/05 16:13 Order name: Echo with Doppler [facility] 06/05 16:13 Order name: Sedimentation Rate, [place] [facility] 06/05 16:13 Order name: Lipid Profile [facility] 06/05 16:13 Order name: Lipid Profile [facility] 06/05 16:15 Order name: Chest Pa And Lat (2 Views) [facility] 06/05 17:18 Order name: RAD [facility] 06/05 14:02 Order name: IV Start; Complete Time: 14:25 06/05 14:03 Order name: Cardiac monitoring; Complete Time: 14:25 06/05 16:13 Order name: Physical Therapy Consult [facility] 06/05 16:13 Order name: Speech Therapy Consult [facility] 06/05 16:13 Order name: NPO [facility] 06/05 16:13 Order name: NPO EDMS 06/05 16:13 Order name: NPO EDMS 06/05 16:13 Order name: EKG Electrocardiogram EDMS Administered Medications: 14:30 Drug: NS 0.9% 1000 ml Route: IV; Rate: 1000 ml; Site: left antecubital; bp 18:09 Follow up: IV Status: Completed infusion; IV Intake: 1000ml bp 14:30 Drug: Decadron - Dexamethasone 10 mg Route: IVP; Site: left antecubital; bp 18:09 Follow up: Response: No adverse reaction bp 14:30 Drug: Reglan (metoCLOPramide) 10 mg Route: IVP; Site: left antecubital; bp 18:09 Follow up: Response: No adverse reaction bp 16:00 Drug: Aspirin Chewable Tablet 324 mg Route: PO; bp 18:08 Follow up: Response: No adverse reaction bp 16:00 Drug: foLIC Acid 1 mg Route: IVPB; Site: left antecubital; bp 18:08 Follow up: IV Status: Completed infusion; IV Intake: 100ml bp Disposition Summary: 06/05/21 17:10 Transfer Ordered Transfer Location: [facility] rn Reason: Higher level of care rn Condition: Stable(06/05/21 17:10) rn Problem: new(06/05/21 17:10) rn Symptoms: are unchanged(06/05/21 17:10) rn Accepting Physician: (06/05/21 19:31) sm5 Diagnosis - Cerebellar stroke syndrome(06/05/21 17:10) rn - 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 chapman sm5
--- NOTE | 2021-06-05 16:04 | RAD REPORT ---
EXAM DESCRIPTION: CT - Neck Angio - 06/05/2021 3:54 pm CLINICAL HISTORY: CVA Headache, CVA COMPARISON: Head C Spine Mpr Wo Con dated 05/31/2021; Soft Tissue Neck W/Contr dated 07/17/2019; Brain Wo Cont dated 06/05/2021 TECHNIQUE: CT angiography of the neck vessels was performed with MIPs. All CT scans are performed using dose optimization technique as appropriate and may include automated exposure control or mA/KV adjustment according to patient size. FINDINGS: A left aortic arch is identified with normal three vessel configuration of the great vesse ls. No significant flow abnormality is seen of the common carotid bilaterally. No significant stenosis is identified involving the cervical segments of both internal carotid arteri es. The left intracranial portion of the left vertebral artery is not contrast opacified likely related t o occlusion or dissection. IMPRESSION: The intracranial left vertebral artery shows a lack of flow likely related to occlusion or dissection.
[2021-06-05] MEDS ORDERED: FOLIC ACID 5 MG/ML VIAL ONE (16:09)
[2021-06-05] MEDS ORDERED: ASPIRIN 81 MG CHEWABLE TABLET ONE (16:09)
--- NOTE | 2021-06-05 16:14 | P.HP ---
Certification for Inpatient Patient admitted to: Inpatient With expected LOS: >2 Midnights Patient will require the following post-hospital care: None Practitioner: I am a practitioner with admitting privileges, knowledge of patient current condition, hospital course, and medical plan of care. Services: Services provided to patient in accordance with Admission requirements found in Title 42 Section 412.3 of the Code of Federal Regulations Patient History Date of Service: 06/05/21 Reason for admission: CVA Physical Examination - Physical Exam General: Alert - Studies Laboratory Data (last 24 hrs) 06/05/21 14:20: Sodium 141, Potassium 4.0, BUN 20 H, Creatinine 0.88, Glucose 71 L 06/05/21 14:20: WBC 7.5 D, Hgb 15.2 H, Hct 43.0, Plt Count 274 Assessment and Plan - Plan 1. Cerebrovascular accident: Prophylaxis: SCDs for DVT prophylaxis CODE STATUS: Full code. - Advance Directives Does patient have a Living Will: No Does patient have a Durable POA for Healthcare: No
[2021-06-05] MEDS ORDERED: ACETAMINOPHEN 325 MG TABLET PO PRN (16:17)
[2021-06-05] MEDS ORDERED: NA CHLORIDE 0.9% 1,000 ML IV SCH (17:00)
--- NOTE | 2021-06-05 17:16 | RAD REPORT ---
EXAM DESCRIPTION: RAD - Chest Single View - 06/05/2021 5:08 pm CLINICAL HISTORY: Stroke Chest pain. COMPARISON: Chest Single View dated 01/06/2020; Head C Spine Mpr Wo Con dated 05/31/2021; Head Brain W o Cont dated 06/04/2021; Brain Wo Cont dated 06/05/2021; Neck Angio dated 06/05/2021 FINDINGS: Portable technique limits examination quality. The lungs are grossly clear. The heart is normal in size. No displaced fractures. IMPRESSION: No acute intrathoracic process suspected.
[2021-06-05] MEDS ORDERED: ATORVASTATIN 80 MG TAB PO SCH (21:00)
[2021-06-05 22:02] VITALS: TEMP 98
[2021-06-05 22:16] VITALS: O2SAT 100
[2021-06-05 22:20] VITALS: BP 110/68
[2021-06-06] MEDS ORDERED: ASPIRIN EC 81 MG TAB PO SCH (09:00)
== END 2021-06-05 19:30 | disposition short-term general hospital (02) | DRG 65 ==
LOC: ER 13:49 → ERHOLD 16:08
PROVIDERS: ADMIT Internal Medicine Nephrology; ATTEND Internal Medicine Nephrology
DX: I63.9 Cerebral infarction, unspecified (principal); G81.91 Hemiplegia, unspecified affecting right dominant side; Z79.82 Long term (current) use of aspirin
CPT/HCPCS: 36415; 70498; 70551; 71045; 80048; 84439; 84443; 85025; 85652; 96361; 96365; 96366; 96375; 99285; J1100; J2765; J7030; Q9967

== ENCOUNTER 2023-10-23 09:35 | Emergency (ER) | payer SELFPAY ==
[2023-10-23] MEDS ORDERED: IBUPROFEN 200 MG TAB PO ONE (10:08)
[2023-10-23] MEDS ORDERED: IBUPROFEN 400 MG TAB ONE (10:09)
[2023-10-23 10:28] LABS: SARS-CoV-2 Antigen CONTROL BLUE LINE VIS/BG OK
[2023-10-23 10:29] LABS: SARS-CoV-2 Antigen Rapid Res Positive (Negative)
--- NOTE | 2023-10-23 10:47 | EDPHYS ---
Physician Documentation [facility] Name: Stella Owens Age: 33 yrs Sex: Female : 1990 Arrival Date: 10/23/2023 Time: 09:35 Bed DX4 Private MD: ED Physician Guille Manuel HPI: 10/22 19:10 This 33 yrs old Female presents to ER via Ambulatory with complaints of Sore ms3 Throat. 19:10 33-year-old female with past medical history of scoliosis, cerebrovascular accident ms3 presents to the emergency department for 2 days of sore throat, congestion, shortness of breath, cough, myalgias. Patient states her discomfort is a 6/10. Patient denies sick contacts. 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 Last tetanus immunization: unknown. - Infectious Disease History:: Denies. - Social history:: Smoking status: Patient denies any tobacco usage or history of. ROS: 19:10 Cardiovascular: Negative for chest pain, and palpitations. Abdomen/GI: Negative for ms3 abdominal pain, nausea, vomiting, diarrhea, and constipation, Skin: Negative for injury, rash, and discoloration, 19:10 Constitutional: Positive for body aches, chills, fatigue, 19:10 ENT: Positive for nasal discharge, rhinorrhea, Exam: 19:10 Constitutional: This is a well developed, well nourished patient who is awake, alert, ms3 and in no acute distress. Chest/axilla: Normal chest wall appearance and motion. Nontender with no deformity. Cardiovascular: Regular rate and rhythm with a normal S1 and S2. No gallops, murmurs, or rubs. Normal PMI, no JVD. No pulse deficits. Respiratory: Lungs have equal breath sounds bilaterally, clear to auscultation and percussion. No rales, rhonchi or wheezes noted. No increased work of breathing, no retractions or nasal flaring. Abdomen/GI: Soft, non-tender, with normal bowel sounds. No distension or tympany. No guarding or rebound. No evidence of tenderness throughout. Vital Signs: 09:50 Weight 74.84 kg; Height 5 ft. 0 in. ; Pain 7/10; kb3 09:58 BP 98 / 61; Pulse 67; Resp 16; Temp 98; Pulse Ox 98% on R/A; bc6 09:50 Body Mass Index 32.22 (74.84 kg, 152.4 cm) kb3 09:50 Pain Scale: Adult kb3 MDM: 10:01 Patient medically screened. ms3 19:10 Differential diagnosis: Allergic rhinitis, upper respiratory infection, viral syndrome ms3 Flu versus COVID. Data reviewed: vital signs, nurses notes, lab test result(s), and as a result, I will discharge patient. I considered the following discharge prescriptions or medication management in the emergency department Medications were administered in the Emergency Department. See MAR. Counseling: I had a detailed discussion with the patient and/or guardian regarding the historical points, exam findings, and any diagnostic results supporting the discharge/admit diagnosis, lab results, the need for outpatient follow up, to return to the emergency department if symptoms worsen or persist or if there are any questions or concerns that arise at home. Special discussion: I discussed with the patient/guardian in detail that at this point there is no indication for admission to the hospital. It is understood, however, that if the symptoms persist or worsen the patient needs to return immediately for re-evaluation. ED course: Discussed positive COVID results with patient. Patient to follow-up with primary care physician in 2 to 3 days. Patient understands and agrees with plan. All questions were answered. Return precautions discussed include worsening symptoms, or any other concerns. 10/22 10:01 Order name: SARS RAPID; Complete Time: 10:43 ms3 10/22 10:01 Order name: Flu; Complete Time: 10:43 ms3 Administered Medications: 10:12 Drug: Ibuprofen PO 600 mg PO once Route: PO; kb3 10:55 Follow up: Response: No adverse reaction; Pain is decreased iw Disposition Summary: 10/23/23 10:46 Discharge Ordered Notes: Location: Home ms3 Condition: Stable ms3 Diagnosis - SARS-associated coronavirus as the cause of diseases classified elsewhere ms3 Followup: ms3 - With: Brandyn Grant DO - When: 2 - 3 days - Reason: Recheck today's complaints Discharge Instructions: - Discharge Summary Sheet ms3 - COVID-19 ms3 Forms: - Medication Reconciliation Form ms3 - Antibiotic Education ms3 - Prescription Opioid Use ms3 - Patient Portal Instructions ms3 - Leadership Thank You Letter ms3 Signatures: Dispatcher [employer] EDGuille Wood DO DO ms3 Missy More RN RN kb3 Louise Bennett RN iw Corrections: (The following items were deleted from the chart) 09:52 09:51 Home Meds: aspirin 81 mg Oral TbEC 1 tab once daily; kb3 kb3
--- NOTE | 2023-10-23 10:47 | ER ---
Nurse's Notes [facility] Name: Stella Owens Age: 33 yrs Sex: Female : 1990 Arrival Date: 10/23/2023 Time: 09:35 Bed DX4 Private MD: Diagnosis: SARS-associated coronavirus as the cause of diseases classified elsewhere Presentation: 10/22 09:50 Chief complaint: Patient states: Sore throat, body aches, cough/congestion x2 days. kb3 Denies fever. Denies sick contacts. Coronavirus screen: Vaccine status: Patient reports being unvaccinated. Client denies travel out of the [place] in the last 14 days. Ebola Screen: Patient negative for fever greater than or equal to 101.5 degrees Fahrenheit, and additional compatible Ebola Virus Disease symptoms Patient denies exposure to infectious person. Patient denies travel to an Ebola-affected area in the 21 days before illness onset. Initial Sepsis Screen: Does the patient meet any 2 criteria? No. Patient's initial sepsis screen is negative. Does the patient have a suspected source of infection? No. Patient's initial sepsis screen is negative. Risk Assessment: Do you want to hurt yourself or someone else? Patient reports no desire to harm self or others. Onset of symptoms was October 21, 2023. 09:50 Method Of Arrival: Ambulatory 3 09:50 Acuity: LUCIAN 3 kb3 Triage Assessment: 09:51 General: Appears in no apparent distress. Behavior is calm, cooperative. Pain: kb3 Complains of pain in uvula, left aspect of posterior pharynx and right aspect of posterior pharynx Pain does not radiate. Pain currently is 7 out of 10 on a pain scale. EENT: Reports nasal congestion nasal discharge pain in uvula, left aspect of posterior pharynx and right aspect of posterior pharynx when swallowing. 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 Last tetanus immunization: unknown. - Infectious Disease History:: Denies. - Social history:: Smoking status: Patient denies any tobacco usage or history of. Screenin:56 [facility] ED Fall Risk Assessment (Adult) History of falling in the last 3 months, iw including since admission No falls in past 3 months (0 pts) Confusion or Disorientation No (0 pts) Intoxicated or Sedated No (0 pts) Impaired Gait No (0 pts) Mobility Assist Device Used No (0 pt) Altered Elimination No (0 pt) Score/Fall Risk Level 0 - 2 = Low Risk Oriented to surroundings, Maintained a safe environment. Abuse screen: Denies injuries from another. Nutritional screening: No deficits noted. Tuberculosis screening: No symptoms or risk factors identified. Assessment: 10:50 Respiratory: Airway is patent Respiratory effort is even, unlabored, EENT: Throat is iw clear is pink. 10:55 Reassessment: Patient appears in no apparent distress at this time. Patient and/or iw family updated on plan of care and expected duration. Pain level reassessed. Patient is alert, oriented x 3, equal unlabored respirations, skin warm/dry/pink. Vital Signs: 09:50 Weight 74.84 kg; Height 5 ft. 0 in. ; Pain 7/10; kb3 09:58 BP 98 / 61; Pulse 67; Resp 16; Temp 98; Pulse Ox 98% on R/A; bc6 09:50 Body Mass Index 32.22 (74.84 kg, 152.4 cm) kb3 09:50 Pain Scale: Adult kb3 ED Course: 09:40 Patient arrived in ED. ra3 09:48 Guille Manuel DO is Attending Physician. ms3 09:51 Triage completed. kb3 09:51 Arm band placed on right wrist. kb3 10:08 Flu Sent. bc6 10:08 SARS RAPID Sent. bc6 10:08 COVID swab sent to lab. Flu and/or RSV swab sent to lab. bc6 10:46 Brandyn Grant DO is Referral Physician. ms3 10:55 Louise Bennett, RN is Primary Nurse. iw 10:56 Patient has correct armband on for positive identification. Provided Education on: . iw 10:56 No provider procedures requiring assistance completed. Patient did not have IV access iw during this emergency room visit. Administered Medications: 10:12 Drug: Ibuprofen PO 600 mg PO once Route: PO; kb3 10:55 Follow up: Response: No adverse reaction; Pain is decreased iw Medication: 10:56 VIS not applicable for this client. iw Outcome: 10:46 Discharge ordered by . ms3 10:56 Discharged to home ambulatory, iw 10:56 Condition: good 10:56 Discharge instructions given to patient, Instructed on discharge instructions, follow up and referral plans. Demonstrated understanding of instructions, follow-up care, 10:56 Patient left the ED. iw Signatures: Louise Bennett, RN RN iw Guille Mnauel DO DO ms3 Missy More RN RN kb3 Natasha Prado 6 Adriane Hunt ra3 Corrections: (The following items were deleted from the chart) 09:52 09:51 Home Meds: aspirin 81 mg Oral TbEC 1 tab once daily; kb3 kb3
[2023-10-23 11:15] VITALS: BP 98/61; TEMP 98; O2SAT 98
== END 2023-10-23 10:56 | disposition home or self-care (01) ==
LOC: ER 09:35
DX: U07.1 COVID-19 (principal); Z86.73 Personal history of transient ischemic attack (TIA), and cerebral infarction without residual deficits
CPT/HCPCS: 36415; 87804; 87811; 99283

== ENCOUNTER 2024-04-27 17:54 | Emergency (ER) | payer OTHER ==
--- OUTSIDE RECORDS SUMMARY | 2024-04-27 17:57 | XMS REPORT | Continuity of Care Document ---
Author Name Unknown Address [address] [facility]. [address] [place] [address] [facility] thconnect Address [address] [facility]. 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 Ordering Clinician Indication Dosage Frequency Signature (SIG) Comments Components Source Nitrofurant oin Macrocrysta ls (Macrobid) 100 Mg CAP 03-27 11:55: 00 No 100mg Twice A Day TMR Vital Signs Vital Name Observation Time Observation Value Comments S ource Body Temperature 2023-05-23 10:01:00 98.7 [degF] TMR Heart Rate 2023-05-23 10:01:00 68 /min TMR Respiratory rate 2023-05-23 10:01:00 16 /min TMR BP Systolic 2023-05-23 10:01:00 116 mm[Hg] TMR BP Diastolic 2023-05-23 10:01:00 74 mm[Hg] TMR Height 2023-05-23 09:00:00 152.630781 cm TM R Weight 2023-05-23 09:00:00 74.014830 kg TMR BMI (Body Mass Index) 2023-05-23 09:00:00 32.3 kg/m2 TMR Body Temperature 2023-03-27 12:05:00 98.2 [degF] TMR Heart Rate 2023-03-27 12:05:00 71 /min TMR Respiratory rate 2023-03-27 12:05:00 16 /min TMR BP Systolic 2023-03-27 12:05:00 107 mm[Hg] TMR BP Diastolic 2023-03-27 12:05:00 69 mm[Hg] TMR Height 2023-03-27 10:17:00 152.794574 cm TM R Weight 2023-03-27 10:17:00 63.123958 kg TMR BMI (Body Mass Index) 2023-03-27 10:17:00 27.3 kg/m2 TMR Encounters Start Date/Time End Date/Time Encounter Type Admission Type Attending [facility] Facility Care Department Encounter ID Source 2023-05-23 08:44:00 2023-05-23 10:03:00 Departed Emergency Room [facility] LIVE HCIS [id number] R 2023-05-23 08:44:00 2023-05-23 10:03:00 Emergency ER BONITA GA [facility] [id number] [facility] 2023-03-27 09:56:00 2023-03-27 12:03:00 Departed Emergency Room [facility] LIVE HCIS [id number] R 2023-03-27 09:56:00 2023-03-27 12:03:00 Emergency ER KRISTY MACHADO [facility] [id number] [facility] Results Test Description Test Time Test Comments Results Result Co mments Source TMRColor of Urine by [id number] 09:06:00* Test Item Value Reference Range Interpretation Comme nts Urine Color (test code = 64516-5) Lt Yellow Yel-Kaleigh * TMRUrine clarity [id number] 09:06:00* Test Item Value Reference Range Interpretation Comme nts Urine Appearance (test code = 83625-3) Clear Clear * TMRUrine pH measurement by automated test [id number] 09:06:00* Test Item Value Reference Range Interpretation Comme nts Urine pH (test code = 33984-7) 8.0 5.0-8.0 TMRSpecific gravity of Urine by Automated test [id number] 09:06:00* Test Item Value Reference Range Interpretation Comme nts Urine Specific [place] (test code = 72311-8) 1.018 1.005-1.030 TMRUrine protein measurement by automated test strip (mass/volume)2023-05-23 09:06:00* Test Item Value Reference Range Interpretation Comme nts Urine Protein (test code = 20090-7) Negative Negative * TMRUrine glucose measurement by automated test strip (mass/volume)2023-05-23 09:06:00* Test Item Value Reference Range Interpretation Comme nts Urine Glucose (UA) (test cod e = 45429-0) Negative Negative * TMRKetones [Mass/volume] in Urine by Automated test [id number] 09:06:00* Test Item Value Reference Range Interpretation Comme nts Urine Ketones (test code = 27212-1) Negative Negative * TMRUrine erythrocytes count by automated test strip (number/volume)2023-05-23 09:06:00* Test Item Value Reference Range Interpretation Comme nts Urine Occult Blood (test cod e = 36452-3) Negative Negative * TMRUrine nitrite detection by automated test [id number] 09:06:00* Test Item Value Reference Range Interpretation Comme nts Urine Nitrite (test code = 97748-0) Negative Negative TMRUrine total bilirubin measurement by automated test strip (mass/volume) 2023-05-23 09:06:00* Test Item Value Reference Range Interpretation Comme nts Urine Bilirubin (test code = 12623-0) Negative Negative TMRUrine urobilinogen measurement by automated test strip (mass/volume) 2023-05-23 09:06:00* Test Item Value Reference Range Interpretation Comme nts Urine Urobilinogen (test cod e = 23651-6) Negative 0.0-1.0 TMRUrine leukocytes count by automated test strip (number/volume)2023-05-23 09:06:00* Test Item Value Reference Range Interpretation Comme nts Urine Leukocyte Esterase (te st code = 83924-6) Negative Negative TMRMicroscopic examination of [id number] 09:06:00* Test Item Value Reference Range Interpretation Comme nts Microscopic Urinalysis (T) ( test code = 47656-7) Not Ind TMRService comment 09:06:00* Test Item Value Reference Range Interpretation Comme nts Urinalysis Comment (test code = 8262-8) * See_Comment [Automated [employer]] The system which generated this result transmitted reference range: *. The reference range was not used to interpret this result as normal/abnormal. TMRHCG ur [id number] 09:06:00* Test Item Value Reference Range Interpretation Comme nts Urine Test (test c ode = 2106-3) Negative Negative TMRSpecific gravity of Urine by Automated test [id number] 10:20:00* Test Item Value Reference Range Interpretation Comme nts Urine Specific [place] (test code = 48260-3) 1.017 1.005-1.030 TMRUrine protein measurement by automated test strip (mass/volume)2023-03-27 10:20:00* Test Item Value Reference Range Interpretation Comme nts Urine Protein (test code = 45647-6) Negative Negative * TMRUrine glucose measurement by automated test strip (mass/volume)2023-03-27 10:20:00* Test Item Value Reference Range Interpretation Comme nts Urine Glucose (UA) (test cod e = 41556-1) Negative Negative * TMRKetones [Mass/volume] in Urine by Automated test [id number] 10:20:00* Test Item Value Reference Range Interpretation Comme nts Urine Ketones (test code = 29307-7) Negative Negative * TMRUrine erythrocytes count by automated test strip (number/volume)2023-03-27 10:20:00* Test Item Value Reference Range Interpretation Comme nts Urine Occult Blood (test cod e = 11550-0) Negative Negative * TMRUrine nitrite detection by automated test [id number] 10:20:00* Test Item Value Reference Range Interpretation Comme nts Urine Nitrite (test code = 92800-9) Negative Negative TMRUrine total bilirubin measurement by automated test strip (mass/volume) 2023-03-27 10:20:00* Test Item Value Reference Range Interpretation Comme nts Urine Bilirubin (test code = 98792-2) Negative Negative TMRUrine urobilinogen measurement by automated test strip (mass/volume) 2023-03-27 10:20:00* Test Item Value Reference Range Interpretation Comme nts Urine Urobilinogen (test cod e = 65348-8) Negative 0.0-1.0 TMRUrine leukocytes count by automated test strip (number/volume)2023-03-27 10:20:00* Test Item Value Reference Range Interpretation Comme nts Urine Leukocyte Esterase (te st code = 84242-8) 500 Negative TMRMicroscopic examination of [id number] 10:20:00* Test Item Value Reference Range Interpretation Comme nts Microscopic Urinalysis (T) ( test code = 97496-2) ----- TMRUrine sediment erythrocyte count by microscopy (number/high power field) 2023-03-27 10:20:00* Test Item Value Reference Range Interpretation Comme nts Urine RBC (test code = 35291-8) 0-2 0-2 TMRUrine sediment leukocyte count by microscopy (number/high power field) 2023-03-27 10:20:00* Test Item Value Reference Range Interpretation Comme nts Urine WBC (test code = 5821-4) 0-5 0-5 TMRUrine sediment epithelial cell count by microscopy (number/high power field) 2023-03-27 10:20:00* Test Item Value Reference Range Interpretation Comme nts Urine Epithelial Cells (test code = 5787-7) Many Few TMRUrine sediment crystal count by microscopy (number/high power field) 2023-03-27 10:20:00* Test Item Value Reference Range Interpretation Comme nts Urine Crystals (test code = 73171-2) None Seen None * TMRUrine sediment bacteria count by microscopy (number/high power field) 2023-03-27 10:20:00* Test Item Value Reference Range Interpretation Comme nts Urine Bacteria (test code = 5769-5) Frequent None TMRUrine sediment casts count by microscopy (number/low power field)2023-03-27 10:20:00* Test Item Value Reference Range Interpretation Comme nts Urine Casts (test code = 9842-6) None Seen None * TMRYeast detection in urine sediment by light [id number] 10:20:00* Test Item Value Reference Range Interpretation Comme nts Urine Yeast (test code = 17070-2) None Seen None TMRService comment 10:20:00* Test Item Value Reference Range Interpretation Comme nts Urinalysis Comment (test code = 8262-8) * See_Comment [Automated messa ge] The system which generated this result transmitted reference range: *. The reference range was not used to interpret this result as normal/abnormal. TMRService comment 10:20:00* Test Item Value Reference Range Interpretation Comme nts Urine Culture Indicated (lory t code = 8264-4) To follow TMRHCG ur [id number] 10:20:00* Test Item Value Reference Range Interpretation Comme nts Urine Test (test c ode = 2106-3) Negative Negative TMRBacterial urine [id number] 10:20:00* Test Item Value Reference Range Interpretation Comme nts Urine Culture (test code = 630-4) Streptococcus agalactiae TMRUrinalysis specimen collection [id number] 10:20:00* Test Item Value Reference Range Interpretation Comme nts Urine Source (test code = 42454-0) URINE TMRColor of Urine by [id number] 10:20:00* Test Item Value Reference Range Interpretation Comme nts Urine Color (test code = 04745-9) Dk Yellow Yel-Kaleigh * TMRUrine clarity schrdqwgcmcha8764-05-02 10:20:00* Test Item Value Reference Range Interpretation Comme nts Urine Appearance (test code = 54900-8) Clear Clear * TMRUrine pH measurement by automated test [id number] 10:20:00* Test Item Value Reference Range Interpretation Comme nts Urine pH (test code = 79160-9) 8.0 5.0-8.0 TMR
[2024-04-27] MEDS ORDERED: ONDANSETRON 4 MG/2 ML VIAL ONE (19:39)
[2024-04-27] MEDS ORDERED: KETOROLAC 30 MG/ML INJ ONE (19:39)
[2024-04-27] MEDS ORDERED: NA CHLORIDE 0.9% 1,000 ML ONE (19:40)
[2024-04-27 19:43] LABS: Absolute Eosinophils 0.3 K/uL (0-0.5); Absolute Lymphocytes (CBC) 1.4 K/uL (0.7-4.9); Absolute Monocytes 0.6 K/uL (0.1-1.3); Absolute Neutrophil 8.1 K/uL (1.8-8.0); Basophils % 0.3 % (0-1.3); Eosinophils % 2.7 % (0-4.4); Hematocrit 47.9 % (36.0-45.0); Hemoglobin 16.6 g/dL (12.0-15.0); Lymphocytes % 13.1 % (15.3-44.8); MCHC 34.5 g/dL (32.0-36.0); MCV 89.8 fL (80-100); Monocytes % 5.9 % (3.3-12.3); Nucleated Red Blood Cells % 0.1 % (0-0); Platelets 250 thou/uL (152-406); RBC Red Blood Cell Count 5.34 M/uL (3.86-4.86); Red Cell Distribution Width 12.5 % (12.1-15.2)
[2024-04-27 19:45] LABS: Specific Gravity > 1.030 (1.005-1.030)
[2024-04-27 19:46] LABS: Specific Gravity > 1.030 (1.005-1.030); Sqamous Epithelial <5 /HPF (None Seen); Urine Bacteria None Seen /HPF (<20); Urine Bilirubin NEGATIVE (Negative); Urine Blood Negative (Negative); Urine Clarity Clear (Clear); Urine Color Yellow (Yellow); Urine Culture Reflex Order NOT NEEDED; Urine Glucose NEGATIVE (Negative); Urine Ketones NEGATIVE (Negative); Urine Microscopic Reflex YN ORDER UMIC; Urine Mucus Slight /HPF (None Seen); Urine Nitrite NEGATIVE (Negative); Urine Protein TRACE (Negative); Urine RBC <5 /HPF (None Seen); Urine Urobilinogen 1+ (Normal); Urine WBC <5 /HPF (<5); Urine Yeast (Budding) Trace /HPF (None Seen)
[2024-04-27 20:00] LABS: Albumin 3.6 g/dL (3.4-5.0); Albumin/Globulin Ratio 0.9 (1.1-1.8); Anion Gap 7.7 mEq/L (5.0-15.0); Bilirubin Total 0.5 mg/dL (0.2-1.0); Potassium 3.7 mEq/L (3.5-5.1); Protein, Total 7.6 g/dL (6.4-8.2)
--- NOTE | 2024-04-27 21:00 | RAD REPORT ---
EXAMINATION: Head Brain Wo Cont CLINICAL INDICATION: Female, 33 years old.Dizziness;Headache TECHNIQUE: Axial CT images from the skull base to the vertex without intravenous contrast. Coronal an d sagittal reformatted images were created from the data set. One or more of the following dose reduction techniques were used: Automated exposure control, adjustment of the mA and/or kV according to patient size, and/or iterative reconstruction. Unless otherwise specified, incidental findings do not require dedicated imaging follow-up. [id number]. COMPARISON: 06/04/2021 FINDINGS: INTRACRANIAL: No acute intracranial hemorrhage. No hydrocephalus. No mass effect or midline shift. No significant white matter disease. VASCULATURE: No visualized abnormalities in the arteries or dural venous sinuses. SCALP/SKULL: No calvarial fracture identified. No acute soft tissue abnormality. SINUSES: The visualized paranasal sinuses are mostly clear. No significant mastoid fluid. IMPRESSION: No acute intracranial abnormality. No significant change from prior.
--- NOTE | 2024-04-27 21:10 | RAD REPORT ---
EXAMINATION: CT ABDOMEN AND PELVIS WITH CONTRAST CLINICAL INDICATION: Female, 33 years old.ABD PAIN TECHNIQUE: CT abdomen and pelvis was performed, after the administration of IV contrast, as per depar tment protocol. Axial, sagittal and coronal reconstructions were obtained. One or more of the following dose reduction techniques were used: Automated exposure control, adjustment of the mA and/o r kV according to patient size, and/or iterative reconstruction. Unless otherwise specified, incidental findings do not require dedicated imaging follow-up. [id number]. COMPARISON: No prior exam. FINDINGS: LOWER CHEST: Bilateral breast prosthesesNo significant pericardial effusion. UPPER GI: No significant abnormality. LIVER: Benign appearing low density liver lesion in the right hepatic lobe, likely a hemangioma in th e patient's age. No suspicious mass. GALLBLADDER/BILE DUCTS: No biliary ductal dilatation.? PANCREAS: No mass, ductal dilation, or giuseppe-pancreatic fluid. SPLEEN: Unremarkable. ADRENALS: No adrenal masses. KIDNEYS AND URETERS: No hydronephrosis.No suspicious renal mass. ABDOMINAL AORTA AND OTHER VESSELS: Normal caliber aorta and IVC. PERITONEUM: No abnormal free fluid. No free air. LYMPH NODES: No pathologic lymphadenopathy. ABDOMINAL WALL: Small fat containing umbilical hernia. SMALL BOWEL/COLON: Small bowel has normal course and caliber. No colonic wall thickening or pericolon ic inflammatory changes.Normal appendix. Mild diverticulosis without diverticulitis. Mild formed stool burden. URINARY BLADDER: Underdistended but grossly unremarkable. REPRODUCTIVE ORGANS: No pathologic process. MUSCULOSKELETAL: Thoracolumbar curvature. Hemivertebral body at L2. Scoliosis. ADDITIONAL FINDINGS: None. IMPRESSION: No acute findings within the abdomen or pelvis. No appendicitis.
[2024-04-27 21:13] LABS: Influenza A Ag Negative; Influenza B Ag Negative; SARS-CoV-2 Antigen Rapid Res Negative (Negative)
--- NOTE | 2024-04-27 21:24 | EDPHYS ---
Physician Documentation [facility] Name: Stella Owens Age: 33 yrs Sex: Female : 1990 Arrival Date: 04/27/2024 Time: 17:54 Bed 20 Private MD: ED Physician Valdez Rodriguez HPI: 04/27 19:16 This 33 yrs old Female presents to ER via Ambulatory with complaints of sb4 Nausea, Headache, Abdominal Pain. 19:16 Patient reports 1 week of nausea, headache, abdominal pain, and dizziness. Reports 1 sb4 episode of emesis. Denies any known fevers. Denies any diarrhea. Denies any prior GI issues. Denies any alleviating or aggravating factors. Symptoms are vague. 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 - Infectious Disease History:: Denies. - Social history:: Smoking status: Patient denies any tobacco usage or history of. ROS: 19:16 Constitutional: Negative for fever, chills, and weight loss, sb4 19:16 Abdomen/GI: Positive for abdominal pain, nausea and vomiting, 19:16 Neuro: Positive for dizziness, headache, 19:16 All other systems are negative, Exam: 19:16 Constitutional: This is a well developed, well nourished patient who is awake, alert, sb4 and in no acute distress. Head/Face: Normocephalic, atraumatic. Eyes: Extra-ocular motions intact. Periorbital areas with no swelling, redness, or edema. ENT: Mucous membranes moist. Cardiovascular: Regular rate and rhythm with a normal S1 and S2. Respiratory: No increased work of breathing, no retractions or nasal flaring. Abdomen/GI: Soft, non-tender, no distension. Skin: Warm, dry with normal turgor. Normal color with no rashes, no lesions, and no evidence of cellulitis. MS/ Extremity: Pulses equal, no cyanosis. Neurovascular intact. Full, normal range of motion. Neuro: Awake and alert, GCS 15, oriented to person, place, time, and situation. Motor strength 5/5 in all extremities. Sensory grossly intact. Vital Signs: 18:14 BP 121 / 72; Pulse 62; Resp 18; Temp 98.1; Pulse Ox 99% on R/A; Weight 80.74 kg; Pain cm10 6/10; 20:43 BP 101 / 71; Pulse 59; Resp 16; Pulse Ox 98% ; cp4 21:38 BP 106 / 56; Pulse 57; Resp 16; Pulse Ox 98% ; cp4 18:14 Pain Scale: Adult cm10 MDM: 18:02 Medical Screening Exam initiated sb4 22:37 Transition of care: Care assumed from Geneva Yancey PA-C. ED course: Took over care at dr5 1999. Went in to discuss labs and CT results patient. Patient reports that her symptoms have resolved and she is feeling much better. I went over all labs and CT as well as printed and put in with her discharge paperwork to take to primary care doctor. Will send her home with Jori to help with nausea. All questions answered and patient is symptom-free on discharge.. 22:38 Differential diagnosis: Nonspecific abd pain, gastritis, cholecystitis, appendicitis. dr5 Data reviewed: vital signs, nurses notes. I considered the following discharge prescriptions or medication management in the emergency department Medications were administered in the Emergency Department. See MAR. Care significantly affected by the following chronic conditions: Hypercholesterolemia, CVA, scoliosis. Care significantly affected by the following Social Determinants of Health: Poor access to healthcare and/or lack of insurance, Poor access to transportation, Problems related to employment. Counseling: I had a detailed discussion with the patient and/or guardian regarding the historical points, exam findings, and any diagnostic results supporting the discharge/admit diagnosis, the presence of at least one elevated blood pressure reading (>120/80) during this emergency department visit, lab results, radiology results, the need for outpatient follow up, for definitive care, a family practitioner, to return to the emergency department if symptoms worsen or persist or if there are any questions or concerns that arise at home. Response to treatment: the patient's symptoms have resolved after treatment, the patient's pain is gone. 04/27 18:19 Order name: CBC with Diff; Complete Time: 19:44 sb4 04/27 18:19 Order name: CMP; Complete Time: 20:01 sb4 04/27 18:19 Order name: Lipase; Complete Time: 20:01 sb4 04/27 18:19 Order name: Test, Urine; Complete Time: 19:48 sb4 04/27 18:19 Order name: Urinalysis w/ reflexes; Complete Time: 19:48 sb4 04/27 20:02 Order name: COVID-19 Ag + Flu A+B Ag; Complete Time: 21:21 sb4 04/27 19:56 Order name: Head Brain Wo Cont CT; Complete Time: 21:21 sb4 04/27 19:56 Order name: CT Abd/Pelvis - IV Contrast Only; Complete Time: 21:21 sb4 04/27 18:19 Order name: IV Saline Lock; Complete Time: 19:38 sb4 04/27 18:19 Order name: Labs collected and sent; Complete Time: 19:38 sb4 Administered Medications: 19:44 Drug: Ondansetron IVP 4 mg IVP once; over 2 minutes Route: IVP; Site: right antecubital;cp4 20:02 Follow up: Response: No adverse reaction; Nausea is decreased cp4 19:44 Drug: NS 0.9% IV 1000 ml IV at 1 bolus Per protocol; to be given as a bolus over 60 cp4 minutes Route: IV; Rate: 1 bolus; Site: right antecubital; 21:37 Follow up: IV Status: Completed infusion cp4 20:02 Drug: TORadol - Ketorolac IVP 15 mg IVP once Route: IVP; Site: right antecubital; cp4 21:38 Follow up: Response: No adverse reaction; Pain is decreased cp4 Disposition: 04/28 09:01 Co-signature as Attending Physician, Valdez Rodriguez MD I reviewed the patient's care rn provided by the Advanced Practice Provider and agree with the diagnosis and treatment plan. Disposition Summary: 04/27/24 21:24 Discharge Ordered Notes: Location: Home dr5 Condition: Stable dr5 Diagnosis - Constipation dr5 - Abdominal pain, Generalized dr5 Followup: dr5 - With: Emergency Department - When: As needed - Reason: Worsening of condition Followup: dr5 - With: Private Physician - When: 1 - 2 days - Reason: Recheck today's complaints, Continuance of care, Re-evaluation by your physician Discharge Instructions: - Discharge Summary Sheet dr5 - Abdominal Pain, Adult dr5 - Constipation, Adult dr5 Forms: - Medication Reconciliation Form dr5 - Patient Portal Instructions dr5 - Leadership Thank You Letter dr5 Prescriptions: - Zofran 4 mg Oral Tablet - take 1 tablet ORAL route every 12 hours As needed; 20 tablet; Refills: 0, dr5 Product Selection Permitted Signatures: Dispatcher [employer] EDMS Valdez Rodriguez MD MD rn Brown, Sophia PA-C PAOzzieC [email or web address] Nathaly Landers RN RN cm10 Laure Dawkins cp4 Orlando Pham, GRAPHICS PROGRAMMER-C GRAPHICS PROGRAMMER-[facility]5
--- NOTE | 2024-04-27 21:24 | ER ---
Nurse's Notes [facility] Name: Stella Owens Age: 33 yrs Sex: Female : 1990 Arrival Date: 04/27/2024 Time: 17:54 Bed 20 Private MD: Diagnosis: Constipation;Abdominal pain, Generalized Presentation: 04/27 18:14 Chief complaint: Patient states: Headache, abdominal pain, dizziness, nausea onset 1 cm10 week ago. Coronavirus screen: Client denies travel out of the [place] in the last 14 days. Ebola Screen: Patient denies travel to an Ebola-affected area in the 21 days before illness onset. Initial Sepsis Screen: Does the patient meet any 2 criteria? No. Patient's initial sepsis screen is negative. Does the patient have a suspected source of infection? No. Patient's initial sepsis screen is negative. Risk Assessment: Do you want to hurt yourself or someone else? Patient reports no desire to harm self or others. Onset of symptoms was April 21, 2024. 18:14 Method Of Arrival: Ambulatory cm10 18:14 Acuity: LUCIAN 3 cm10 Triage Assessment: 18:15 General: Appears in no apparent distress. comfortable, Behavior is calm, cooperative. cm10 Neuro: No deficits noted. Level of Consciousness is awake, alert, obeys commands, Oriented to person, place, time, situation, Appropriate for age. Neuro: Reports dizziness, headache. Respiratory: No deficits noted. Airway is patent Respiratory effort is even, unlabored, Respiratory pattern is regular, symmetrical. Musculoskeletal: No deficits noted. Range of motion: intact in all extremities. [employer] BOARDS: 21:39 Not cp4 Historical: - Allergies: 18:15 No Known Allergies; cm10 - Home Meds: 18:15 aspirin 81 mg Oral TbEC 1 tab once daily [Active]; cm10 - PMHx: 18:15 Cerebrovascular accident; scoliosis; cm10 18:16 Hypercholesterolemia; cm10 - Immunization history:: Adult Immunizations up to date. - Infectious Disease History:: Denies. - Social history:: Smoking status: Patient denies any tobacco usage or history of. Screenin:45 [facility] ED Fall Risk Assessment (Adult) History of falling in the last 3 months, cp4 including since admission No falls in past 3 months (0 pts) Confusion or Disorientation No (0 pts) Intoxicated or Sedated No (0 pts) Impaired Gait No (0 pts) Mobility Assist Device Used No (0 pt) Altered Elimination No (0 pt) Score/Fall Risk Level 0 - 2 = Low Risk Oriented to surroundings, Maintained a safe environment, Assessed \T\ reinforced patient's understanding of fall precautions, Hourly rounding (assess needs \T\ fall precautionary measures) done. Abuse screen: Denies threats or abuse. Denies injuries from another. Nutritional screening: No deficits noted. Tuberculosis screening: No symptoms or risk factors identified. Assessment: 19:45 General: Appears in no apparent distress. uncomfortable, Behavior is calm, cooperative, cp4 appropriate for age. Pain: Complains of pain in head Pain does not radiate. Pain currently is 6 out of 10 on a pain scale. Neuro: Level of Consciousness is awake, alert, obeys commands, Oriented to person, place, time, situation. Cardiovascular: Patient's skin is warm and dry. Respiratory: Airway is patent Respiratory effort is even, unlabored. GI: Abdomen is round non-distended, Bowel sounds present X 4 quads. Abd is soft and non tender X 4 quads. Reports nausea, vomiting. : No deficits noted. EENT: No deficits noted. Derm: No deficits noted. Musculoskeletal: No deficits noted. Vital Signs: 18:14 BP 121 / 72; Pulse 62; Resp 18; Temp 98.1; Pulse Ox 99% on R/A; Weight 80.74 kg; Pain cm10 6/10; 20:43 BP 101 / 71; Pulse 59; Resp 16; Pulse Ox 98% ; cp4 21:38 BP 106 / 56; Pulse 57; Resp 16; Pulse Ox 98% ; cp4 18:14 Pain Scale: Adult cm10 ED Course: 17:57 Patient arrived in ED. im 18:00 Geneva Yancey PA-C is PHCP. sb4 18:00 Valdez Rodriguez MD is Attending Physician. sb4 18:15 Triage completed. cm10 18:15 Arm band placed on left wrist. Patient placed in waiting room. cm10 19:24 Laure Dawkins is Primary Nurse. cp4 19:45 Bed in low position. Call light in reach. Side rails up X 1. cp4 19:45 No provider procedures requiring assistance completed. Inserted saline lock: 22 gauge cp4 in right antecubital area, using aseptic technique. 20:04 PHCP role handed off by Geneva Yancey PA-C dr5 20:04 Orlando Pham FNP-C is PHCP. dr5 20:53 Head Brain Wo Cont CT In Process Unspecified. EDMS 20:53 CT Abd/Pelvis - IV Contrast Only In Process Unspecified. EDMS 21:39 Provided Education on: abdominal pain and constipation. cp4 21:39 intact, bleeding controlled, No redness/swelling at site. Pressure dressing applied. cp4 Administered Medications: 19:44 Drug: Ondansetron IVP 4 mg IVP once; over 2 minutes Route: IVP; Site: right antecubital;cp4 20:02 Follow up: Response: No adverse reaction; Nausea is decreased cp4 19:44 Drug: NS 0.9% IV 1000 ml IV at 1 bolus Per protocol; to be given as a bolus over 60 cp4 minutes Route: IV; Rate: 1 bolus; Site: right antecubital; 21:37 Follow up: IV Status: Completed infusion cp4 20:02 Drug: TORadol - Ketorolac IVP 15 mg IVP once Route: IVP; Site: right antecubital; cp4 21:38 Follow up: Response: No adverse reaction; Pain is decreased cp4 Medication: 19:45 VIS not applicable for this client. cp4 Outcome: 21:24 Discharge ordered by MD. dr5 21:39 Discharged to home ambulatory, cp4 21:39 Condition: stable 21:39 Discharge instructions given to patient, family, Instructed on discharge instructions, follow up and referral plans. medication usage, Demonstrated understanding of instructions, follow-up care, medications, Prescriptions given X 1, 21:46 Patient left the ED. cp4 Signatures: Dispatcher [employer] EDMS Geneva Yancey PA-C PA-C sb4 Ena Turner Clarissa, RN RN cm10 Laure Dawkins cp4 Orlando Pham FNP-C FNP-Cdr5
[2024-04-27 22:04] VITALS: TEMP 98.1
[2024-04-27 22:05] VITALS: O2SAT 98
[2024-04-27 22:06] VITALS: BP 106/56
== END 2024-04-27 21:46 | disposition home or self-care (01) ==
LOC: ER 17:54
DX: K59.00 Constipation, unspecified (principal); Z86.73 Personal history of transient ischemic attack (TIA), and cerebral infarction without residual deficits; Z79.82 Long term (current) use of aspirin; Z11.52 Encounter for screening for COVID-19
CPT/HCPCS: 96361; 85025; 81001; 36415; 81025; 83690; 80053; 70450; 74177; 96375; 96374; 99284; 87428; Q9967; J2405; J7030

== ENCOUNTER 2024-12-05 18:29 | Emergency (ER) | payer OTHER ==
[2024-12-05] MEDS ORDERED: NA CHLORIDE 0.9% 1,000 ML ONE (19:19)
[2024-12-05 19:27] LABS: Absolute Lymphocytes (CBC) 2.6 K/uL (0.7-4.9); Hematocrit 43.0 % (36.0-45.0); Hemoglobin 14.2 g/dL (12.0-15.0); MCH 29.6 pg (27.0-35.0); MCHC 33.1 g/dL (32.0-36.0); MCV 89.4 fL (80-100); MPV 7.7 fL (7.6-11.3); Nucleated RBC Absolute Count 0.0 (0-0); Nucleated Red Blood Cells % 0.1 % (0-0); RBC Red Blood Cell Count 4.81 M/uL (3.86-4.86); White Blood Count 7.50 thou/uL (4.3-10.9)
[2024-12-05 19:42] LABS: ALT/SGPT 51.0 U/L (13-56); AST/SGOT 28.0 U/L (15-37); Albumin 3.6 g/dL (3.4-5.0); Albumin/Globulin Ratio 1.0 (1.1-1.8); Alkaline Phosphatase 62.0 U/L (45-117); Anion Gap 8.7 mEq/L (5.0-15.0); BUN Blood Urea Nitrogen 14.0 mg/dL (7-18); Globulin 3.5 g/dL (2.3-3.5); Glucose Level 99.0 mg/dL (74-106); Lipase 27.0 U/L (13-75); Magnesium 2.0 mg/dL (1.6-2.4); Potassium 3.7 mEq/L (3.5-5.1)
--- NOTE | 2024-12-05 20:13 | RAD REPORT ---
EXAM: CT Head Brain Wo Cont HISTORY: HEADACHE COMPARISON: 04/27/2024 TECHNIQUE: Multiple contiguous axial images were obtained for a CT of the brain without contrast. Sag ittal and coronal reformats were performed. One or more of the following dose reduction techniques were used: Automated exposure control, adjus tment of the mA and kV according to patient size, and iterative reconstruction. Unless otherwise specified, incidental findings do not require dedicated imaging follow-up. FINDINGS: No evidence of hydrocephalus, intracranial hemorrhage, or extra-axial fluid collection. The brain is normal in morphology. The calvarium is intact. The visualized paranasal sinuses and mastoid air cells are essentially clear . IMPRESSION: No evidence of acute intracranial abnormality.
[2024-12-05] MEDS ORDERED: DIPHENHYDRAMINE 50 MG/ML VIAL ONE (20:53)
[2024-12-05] MEDS ORDERED: KETOROLAC 30 MG/ML INJ ONE (20:53)
[2024-12-05] MEDS ORDERED: METOCLOPRAMIDE 10 MG/2mL INJ ONE (20:53)
[2024-12-05] MEDS ORDERED: NA CHLORIDE 0.9% 100 ML ONE (20:54)
[2024-12-05 22:37] LABS: Sqamous Epithelial <5 /HPF (None Seen); Urine Culture Reflex Order NOT NEEDED; Urine Microscopic Reflex YN ORDER UMIC
--- NOTE | 2024-12-05 22:56 | ER ---
Nurse's Notes [facility] Name: Stella Owens Age: 34 yrs Sex: Female : 1990 Arrival Date: 12/05/2024 Time: 18:29 Bed 16 Private MD: Diagnosis: Headache;Weakness;Nausea Presentation: 12/05 18:37 Chief complaint: Patient states: HEADACHE, SHANAE EYE PAIN AND BURNING, NAUSEA, DIZZINESS dd2 AND WEAKNESS X 2 DAYS. PT DENIES CONGESTION, VOMITING, DIARRHEA. Coronavirus screen: At this time, the client does not indicate any symptoms associated with coronavirus-19. Ebola Screen: No symptoms or risks identified at this time. Initial Sepsis Screen: Does the patient meet any 2 criteria? No. Patient's initial sepsis screen is negative. Does the patient have a suspected source of infection? No. Patient's initial sepsis screen is negative. Risk Assessment: Do you want to hurt yourself or someone else? Patient reports no desire to harm self or others. Onset of symptoms was December 03, 2024. 18:37 Method Of Arrival: Ambulatory dd2 18:37 Acuity: LUCIAN 3 dd2 Triage Assessment: 18:39 Headache History: The patient has had previous headaches and this one is different than dd2 previous episodes. General: Appears in no apparent distress. uncomfortable, Behavior is calm, cooperative, appropriate for age. Pain: Complains of pain in right eye and left eye, HEAD Pain does not radiate. Pain currently is 7 out of 10 on a pain scale. Pain began 2-3 days ago. Also complains of nausea. EENT: Reports pain in right eye and left eye. Neuro: Reports dizziness, headache SHANAE EYE PAIN AND BURNING. 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 - Infectious Disease History:: Denies. - Social history:: Smoking status: Patient denies any tobacco usage or history of. Screenin:45 [facility] ED Fall Risk Assessment (Adult) History of falling in the last 3 months, bp including since admission No falls in past 3 months (0 pts) Confusion or Disorientation No (0 pts) Intoxicated or Sedated No (0 pts) Impaired Gait No (0 pts) Mobility Assist Device Used No (0 pt) Altered Elimination No (0 pt) Score/Fall Risk Level 0 - 2 = Low Risk Oriented to surroundings. Abuse screen: Denies threats or abuse. Denies injuries from another. Nutritional screening: No deficits noted. Tuberculosis screening: No symptoms or risk factors identified. Assessment: 18:45 General: SEE TRIAGE NOTE. bp 19:05 General: received report from staff therapist broderick, all questions answered. kt5 19:31 Reassessment: Patient appears in no apparent distress at this time. Patient and/or kt5 family updated on plan of care and expected duration. Pain level reassessed. Patient is alert, oriented x 3, equal unlabored respirations, skin warm/dry/pink. Patient states symptoms have not improved. 19:35 General: pt to ct with tech via w/c. kt5 19:40 General: pt back from ct, tolerated well. kt5 20:08 Reassessment: Patient appears in no apparent distress at this time. Patient and/or kt5 family updated on plan of care and expected duration. Pain level reassessed. Patient is alert, oriented x 3, equal unlabored respirations, skin warm/dry/pink. Patient states feeling better. 21:04 Reassessment: Patient appears in no apparent distress at this time. Patient and/or kt5 family updated on plan of care and expected duration. Pain level reassessed. Patient is alert, oriented x 3, equal unlabored respirations, skin warm/dry/pink. Patient states feeling better. 21:54 Reassessment: Patient appears in no apparent distress at this time. Patient and/or kt5 family updated on plan of care and expected duration. Pain level reassessed. Patient is alert, oriented x 3, equal unlabored respirations, skin warm/dry/pink. Patient states feeling better. Patient states symptoms have improved. 22:52 Reassessment: Patient appears in no apparent distress at this time. Patient and/or kt5 family updated on plan of care and expected duration. Pain level reassessed. Patient is alert, oriented x 3, equal unlabored respirations, skin warm/dry/pink. Patient denies pain at this time. Patient states feeling better. Patient states symptoms have improved. 23:55 Reassessment: Patient appears in no apparent distress at this time. Patient and/or kt5 family updated on plan of care and expected duration. Pain level reassessed. Patient is alert, oriented x 3, equal unlabored respirations, skin warm/dry/pink. Patient denies pain at this time. Patient states feeling better. Patient states symptoms have improved. 12/06 00:24 Pain: Denies pain. kt5 Vital Signs: 12/05 18:37 BP 129 / 80; Pulse 59; Resp 16; Temp 98.1; Pulse Ox 99% ; Weight 73.48 kg; Pain 7/10; dd2 19:31 BP 117 / 76; Pulse 59; Resp 18; Pulse Ox 98% ; kt5 20:08 BP 110 / 70; Pulse 55; Resp 16; Pulse Ox 100% ; kt5 21:04 BP 120 / 79; Pulse 56; Resp 16; Pulse Ox 100% ; kt5 21:54 BP 120 / 79; Pulse 50; Resp 16; Pulse Ox 99% ; Pain 0/10; kt5 22:52 BP 102 / 70; Pulse 52; Resp 16; Pulse Ox 99% ; Pain 0/10; kt5 23:45 BP 101 / 66; Pulse 52; Resp 19; Temp 98.1; Pulse Ox 99% ; Pain 0/10; bm8 23:55 BP 101 / 66; Pulse 54; Resp 18; Temp 98.2; Pulse Ox 97% ; Pain 0/10; kt5 18:37 Pain Scale: Adult dd2 21:54 Pain Scale: Adult kt5 22:52 Pain Scale: Adult kt5 23:45 Pain Scale: Adult bm8 23:55 Pain Scale: Adult kt5 ED Course: 18:33 Patient arrived in ED. im 18:36 Brendan Richmond PA-C is PHCP. cp 18:36 Valdez Rodriguez MD is Attending Physician. cp 18:39 Triage completed. dd2 18:39 Arm band placed on right wrist. dd2 18:43 Broderick Rico, TAHMINA is Primary Nurse. bp 18:45 Patient has correct armband on for positive identification. bp 18:55 Initial lab(s) drawn, by me, sent to lab. Inserted saline lock: 20 gauge in left bp antecubital area, using aseptic technique. Blood collected. Flushed with 10 mL NS. 19:16 Magnesium Sent. kt5 19:17 CBC with Diff Sent. kt5 19:17 CMP Sent. kt5 19:17 Lipase Sent. kt5 19:29 EKG done, by ED staff, reviewed by Brendan Richmond PA-C. pm7 19:31 Client placed on continuous cardiac and pulse oximetry monitoring. NIBP monitoring kt5 applied. Door closed. Noise minimized. Pillow given. 19:31 No provider procedures requiring assistance completed. kt5 19:42 CT Head Brain wo Cont In Process Unspecified. EDMS 22:05 Brendan Alvarenga MD is Attending Physician. cp 12/06 00:19 Provided Education on: follow up and meds. kt5 00:19 IV discontinued, intact, bleeding controlled, No redness/swelling at site. Pressure kt5 dressing applied. Administered Medications: 12/05 19:21 Drug: NS 0.9% IV 1000 ml IV at 1 bolus Per protocol; to be given as a bolus over 60 kt5 minutes Route: IV; Rate: 1 bolus; Site: left antecubital; 21:04 Follow up: IV Status: Completed infusion; IV Intake: 1000ml kt5 21:04 Drug: Ketorolac IVP 15 mg IVP once Route: IVP; Site: left antecubital; kt5 21:58 Follow up: Response: No adverse reaction; Pain is decreased kt5 21:04 Drug: Droperidol IVP 1.25 mg IVP once Route: IVP; Site: left antecubital; kt5 21:58 Follow up: Response: No adverse reaction; Pain is decreased kt5 21:04 Drug: metoCLOPramide IVP 10 mg IVP once; over 1 to 2 minutes Route: IVP; Site: left kt5 antecubital; 21:57 Follow up: Response: No adverse reaction; Pain is decreased kt5 21:04 Drug: diphenhydrAMINE IVP 25 mg IVP once Route: IVP; Site: left antecubital; kt5 21:57 Follow up: Response: No adverse reaction; Pain is decreased kt5 Medication: 19:31 VIS not applicable for this client. kt5 Intake: 21:04 IV: 1000ml; Total: 1000ml. kt5 Outcome: 22:55 Discharge ordered by . cp 12/06 00:19 Discharged to home ambulatory, with family, kt5 Condition: stable Discharge instructions given to patient, Instructed on discharge instructions, follow up and referral plans. Demonstrated understanding of instructions, follow-up care, medications, Prescriptions given X 2, 00:29 Patient left the ED. kt5 Signatures: Dispatcher [employer] EDMS Brendan Richmond, Broderick Garcia PA-C, cp, RN RN bp Ena Turner Brad, RN RN bm8 BASIA QUEEN RN RN dd2 Naheed Quezada pm7 Brooke Andujar RN RN kt5
--- NOTE | 2024-12-05 22:56 | EDPHYS ---
Physician Documentation [facility] Name: Stella Owens Age: 34 yrs Sex: Female : 1990 Arrival Date: 12/05/2024 Time: 18:29 Bed 16 Private MD: ED Physician Brendan Alvarenga HPI: 12/05 19:15 This 34 yrs old Female presents to ER via Ambulatory with complaints of cp Headache, Eye Pain, Nausea, Dizziness, Weakness - legs. 19:15 The patient complains of pain to the top of head, forehead and right cheondoism and behind cp right and left eyes. 19:15 The patient describes the headache as constant, burning. Onset: The symptoms/episode cp began/occurred 2 day(s) ago. Associated signs and symptoms: Pertinent positives: nausea, weakness, Pertinent negatives: fever, neck stiffness, paresthesias, sinus congestion. Severity of symptoms: in the emergency department the pain is unchanged, despite home interventions. 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 - Infectious Disease History:: Denies. - Social history:: Smoking status: Patient denies any tobacco usage or history of. ROS: 19:20 Constitutional: Negative for fever, poor PO intake, cp 19:20 Cardiovascular: Negative for chest pain, edema, palpitations, cp 19:20 Eyes: Positive for pain, photophobia, Negative for vision loss, cp 19:20 ENT: Negative for drainage from ear(s), ear pain, sore throat, difficulty swallowing, difficulty handling secretions, 19:20 Neck: Negative for pain with movement, pain at rest, stiffness, 19:20 Respiratory: Negative for cough, shortness of breath, wheezing, 19:20 Abdomen/GI: Positive for nausea, Negative for abdominal pain, vomiting, diarrhea, constipation, 19:20 Back: Negative for pain at rest, pain with movement, 19:20 Neuro: Positive for dizziness, headache, Negative for altered mental status, weakness, 19:20 All other systems are negative, Exam: 19:20 Head/Face: Normocephalic, atraumatic. cp 19:20 Constitutional: The patient appears in no acute distress, alert, awake, non-diaphoretic, non-toxic, well developed, well nourished, uncomfortable, 19:20 Eyes: Periorbital structures: appear normal, Pupils: equal, round, and reactive to light and accomodation, Extraocular movements: intact throughout, Conjunctiva: normal, no exudate, no injection, Sclera: no appreciated abnormality, Lids and lashes: appear normal, bilaterally, 19:20 ENT: External ear(s): are unremarkable, Ear canal(s): are normal, clear, TM's: dullness, bilaterally, Nose: is normal, Mouth: Lips: moist, Oral mucosa: pink and intact, moist, Posterior pharynx: Airway: no evidence of obstruction, patent, erythema, is not appreciated, exudate, is not appreciated, 19:20 Neck: ROM/movement: is normal, is supple, without pain, no range of motions limitations, 19:20 Chest/axilla: Inspection: normal, Palpation: is normal, no crepitus, no tenderness, 19:20 Cardiovascular: Rate: bradycardic, Rhythm: regular, Edema: is not appreciated, JVD: is not appreciated, 19:20 Respiratory: the patient does not display signs of respiratory distress, Respirations: normal, no use of accessory muscles, no retractions, labored breathing, is not present, Breath sounds: are clear throughout, no decreased breath sounds, no stridor, no wheezing, 19:20 Abdomen/GI: Inspection: abdomen appears normal, Palpation: abdomen is soft and non-tender, in all quadrants, 19:20 Back: pain, is absent, ROM is normal, 19:20 Neuro: Orientation: to person, place \T\ time. Mentation: able to follow commands, Motor: no acute changes, moves all fours, Sensation: no acute changes, 19:33 ECG was reviewed by the Attending Physician. cp Vital Signs: 18:37 BP 129 / 80; Pulse 59; Resp 16; Temp 98.1; Pulse Ox 99% ; Weight 73.48 kg; Pain 7/10; dd2 19:31 BP 117 / 76; Pulse 59; Resp 18; Pulse Ox 98% ; kt5 20:08 BP 110 / 70; Pulse 55; Resp 16; Pulse Ox 100% ; kt5 21:04 BP 120 / 79; Pulse 56; Resp 16; Pulse Ox 100% ; kt5 21:54 BP 120 / 79; Pulse 50; Resp 16; Pulse Ox 99% ; Pain 0/10; kt5 22:52 BP 102 / 70; Pulse 52; Resp 16; Pulse Ox 99% ; Pain 0/10; kt5 23:45 BP 101 / 66; Pulse 52; Resp 19; Temp 98.1; Pulse Ox 99% ; Pain 0/10; bm8 23:55 BP 101 / 66; Pulse 54; Resp 18; Temp 98.2; Pulse Ox 97% ; Pain 0/10; kt5 18:37 Pain Scale: Adult dd2 21:54 Pain Scale: Adult kt5 22:52 Pain Scale: Adult kt5 23:45 Pain Scale: Adult bm8 23:55 Pain Scale: Adult kt5 MDM: 18:36 Medical Screening Exam initiated cp 22:55 Data reviewed: vital signs, nurses notes, lab test result(s), EKG, radiologic studies, cp CT scan, and as a result, I will discharge patient. 22:55 Differential diagnosis: hyponatremia, meningitis, meningoencephalitis, migraine, cp neoplasm, sinusitis, subarachnoid bleed, tension headache. I considered the following discharge prescriptions or medication management in the emergency department Medications were administered in the Emergency Department. See MAR. Independent interpretation of the following test(s) in the Emergency Department EKG: See my EKG interpretation above. Counseling: I had a detailed discussion with the patient and/or guardian regarding the historical points, exam findings, and any diagnostic results supporting the discharge/admit diagnosis, lab results, radiology results, to return to the emergency department if symptoms worsen or persist or if there are any questions or concerns that arise at home. Response to treatment: the patient's symptoms have markedly improved after treatment, and as a result, I will discharge patient. 12/05 19:12 Order name: CBC with Diff; Complete Time: 20:42 cp 12/05 19:12 Order name: CMP; Complete Time: 20:42 cp 12/05 19:12 Order name: Lipase; Complete Time: 20:42 cp 12/05 19:12 Order name: Magnesium; Complete Time: 20:43 cp 12/05 20:44 Order name: Test, Urine; Complete Time: 22:48 cp 12/05 20:44 Order name: UA Rfx John Cult if indicated; Complete Time: 22:48 cp 12/05 19:12 Order name: CT Head Brain wo Cont; Complete Time: 20:43 cp 12/05 19:12 Order name: EKG; Complete Time: 19:12 cp 12/05 19:12 Order name: IV Saline Lock; Complete Time: 19:16 cp 12/05 19:12 Order name: Labs collected and sent; Complete Time: 19:17 cp 12/05 19:12 Order name: EKG - Nurse/Tech; Complete Time: 19:21 cp EC:33 Rate is 64 beats/min. Rhythm is regular. MS interval is normal. QRS interval is normal. cp QT interval is normal. T waves are Inverted in lead aVR. Interpreted by me. Reviewed by me. Administered Medications: 19:21 Drug: NS 0.9% IV 1000 ml IV at 1 bolus Per protocol; to be given as a bolus over 60 kt5 minutes Route: IV; Rate: 1 bolus; Site: left antecubital; 21:04 Follow up: IV Status: Completed infusion; IV Intake: 1000ml kt5 21:04 Drug: Ketorolac IVP 15 mg IVP once Route: IVP; Site: left antecubital; kt5 21:58 Follow up: Response: No adverse reaction; Pain is decreased kt5 21:04 Drug: Droperidol IVP 1.25 mg IVP once Route: IVP; Site: left antecubital; kt5 21:58 Follow up: Response: No adverse reaction; Pain is decreased kt5 21:04 Drug: metoCLOPramide IVP 10 mg IVP once; over 1 to 2 minutes Route: IVP; Site: left kt5 antecubital; 21:57 Follow up: Response: No adverse reaction; Pain is decreased kt5 21:04 Drug: diphenhydrAMINE IVP 25 mg IVP once Route: IVP; Site: left antecubital; kt5 21:57 Follow up: Response: No adverse reaction; Pain is decreased kt5 Disposition: 12/07 00:25 Chart complete. cp Disposition Summary: 12/05/24 22:55 Discharge Ordered Notes: Location: Home cp Problem: new cp Symptoms: have improved cp Condition: Stable cp Diagnosis - Headache cp - Weakness cp - Nausea cp Followup: cp - With: Private Physician - When: 2 - 3 days - Reason: Recheck today's complaints Discharge Instructions: - Discharge Summary Sheet cp - General Headache Without Cause cp - Migraine Headache cp - Nausea, Adult cp - Weakness cp Forms: - Medication Reconciliation Form cp - Antibiotic Education cp - Prescription Opioid Use cp - Patient Portal Instructions cp - Leadership Thank You Letter cp Prescriptions: - Ibuprofen 800 mg Oral Tablet - take 1 tablet ORAL route every 8 hours As needed take with food; 30 tablet; cp Refills: 0, Product Selection Permitted - promethazine 25 mg Oral Tablet - take 1 tablet ORAL route every 6 hours As needed; 20 tablet; Refills: 0, cp Product Selection Permitted Addendum: 12/09/2024 06:54 Co-signature as Attending Physician, Brendan Alvarenga MD I agree with the assessment and c do plan of care. Signatures: Dispatcher [employer] EDBrendan Treadwell MD MD cha Page, Corey, PA-C PA-C BASIA Douglas RN RN dd2 Brooke Andujar RN RN kt5 Corrections: (The following items were deleted from the chart) 12/05 19:12 19:12 CBC+H.LAB.BRZ ordered. EDMS EDMS 19:12 19:12 COMPREHENSIVE METABOLIC PANEL+C.LAB.BRZ ordered. EDMS EDMS 19:12 19:12 LIPASE+C.LAB.BRZ ordered. EDMS EDMS 19:12 19:12 MAGNESIUM+C.LAB.BRZ ordered. EDNH EDMS 12/06 14:35 12/05 19:15 The patient complains of pain to the top of head, forehead and right cheondoism cp and behind right eye, cp
[2024-12-06 01:33] VITALS: BP 101/66
[2024-12-06 01:35] VITALS: TEMP 98.2; O2SAT 97
== END 2024-12-06 00:29 | disposition home or self-care (01) ==
LOC: ER 18:29
DX: R51.9 Headache, unspecified (principal); R53.1 Weakness; R11.0 Nausea
CPT/HCPCS: 96361; 93005; 85025; 81001; 36415; 83735; 81025; 83690; 80053; 70450; 96375; 96374; 99284; J1885; J2765; J1200; J1790; J7030